=== PATIENT | male | born 1945 | race Caucasian/White ===

== ENCOUNTER 2016-11-08 07:02 | Emergency (ER) | payer BC ==
[~2016-11-08] VITALS: Ht 177.8 cm; Wt 79.2 kg
[~2016-11-08 07:02] MED LIST: ALPHTAB9 PO; ASPI-461 PO; ATOR-54 PO; CALCTAB5 PO; LEVO-18 PO; LISI40TA PO; PSEU30TA20 PO; PSYL55.43 PO; VTMB12UNK PO; ZOLP10TA6 PO; [UNRECOGNIZED DRUG - CODE] PO
[2016-11-08 07:03] VITALS: TEMP 36.5; Ht 177.8 cm; Wt 79.2 kg
[2016-11-08 07:36] LABS: BASO % 0.5 %; BASO ABS # 0.03 K/uL (0-0.2); COMPLETE YES; EOS % 5.1 %; HEMATOCRIT 45.3 % (42-52); IG% 0.2 %; LYMPH ABS # 0.84 K/uL (1.2-3.4); MEAN CELL VOLUME 86.3 fL (80-100); MEAN CORPUSCULAR HEMOGLOBIN 29.9 pg (25-34); MEAN CORPUSCULAR HGB CONC 34.7 g/dl (32-36); MEAN PLATELET VOLUME 9.4 fL (7.4-10.4); MONO % 9.1 %; NEUT % 72.1 %; PLATELET COUNT 183 K/uL (130-400); RED BLOOD COUNT 5.25 M/uL (4.7-6.1); WHITE BLOOD COUNT 6.48 K/uL (4.8-10.8)
[2016-11-08 07:51] LABS: ALT/SGPT 32 U/L (12-78); AST/SGOT 19 U/L (15-37); BLOOD UREA NITROGEN 11 mg/dl (7-18); BUN/CREATININE RATIO 11.1 (10-20); CALCIUM 9.2 mg/dl (8.5-10.1); CARBON DIOXIDE 29 mmol/L (21-32); CHLORIDE 102 mmol/L (98-107); GLUCOSE 98 mg/dl (70-99); POTASSIUM 3.7 mmol/L (3.5-5.1); SODIUM 138 mmol/L (136-145)
--- NOTE | 2016-11-08 07:52 | DIAGNOSTIC IMAGING REPORT ---
CHEST ONE VIEW PORTABLE CLINICAL HISTORY: Hypertension COMPARISON STUDY: 10/15/2013 FINDINGS: The chest has an emphysematous configuration. The right-sided central venous catheter is been removed. There is no failure. There is no lobar consolidation. There are linear atelectatic changes the left lung base. A left suprahilar opacity likely reflects a vascular summation[ IMPRESSION: Emphysema. No acute findings. Electronically signed by: Jacky Diaz M.D. 11/08/2016 7:50 AM
[2016-11-08] MEDS ORDERED: AMLO2.5T2 PO (07:53)
[2016-11-08] MEDS ORDERED: LISI-461 PO (07:53)
[2016-11-08] MEDS ORDERED: CRS/10 PO (07:53)
[2016-11-08 07:56] LABS: ALB/GLOB RATIO 1.3 (0.9-2); ALKALINE PHOSPHATASE 67 U/L (45-117)
--- NOTE | 2016-11-08 08:03 | EMERGENCY ROOM VISIT NOTE ---
History First contact with patient: 07:11 Chief Complaint: HYPERTENSION Stated Complaint: HIGH BLOOD PRESSURE History of Present Illness The patient is a 71 year old male who presents to the Emergency Room with complaints of hypertension. The patient reports that he was recently in [place] and returned 3 days ago. While he was in [place], the patient did not take his blood pressure medication. The patient was seen by his primary care provider's office yesterday and was apparently diagnosed with the flu. The patient reports that he has had redness and discharge of the right eye, swelling of the right side of the tongue, and swelling of the right lymph nodes. His blood pressure was high and his primary care provider's office and he was prescribed Norvasc, which he started last night. The patient has chronic issues with short -term memory loss. The patient reports that he has had a headache which he rates an 8/10 starting approximately 3 hours ago. The patient took his blood pressure at home and it was elevated despite taking his lisinopril this morning. The patient took 2 baby aspirin, retook his blood pressure, and came here because it was still high. He denies any numbness, weakness or confusion outside of his baseline. He denies any chest pain or shortness of breath. The patient does have a history of hypertension but states it is typically well controlled with his medications. Review of Systems A complete 10-point Review of Systems was discussed with the patient, with pertinent positives and negatives listed in the History of Present Illness. All remaining Review of Systems questions can be considered negative unless otherwise specified. Past Medical/Surgical History Medical Problems: (1) Emphysema NEC (2) HTN (hypertension) Surgical Problems: (1) History of prostate biopsy Family History Diabetes mellitus FHx: cancer FHx: heart disease FHx: hypertension FHx: kidney disease Social History Smoking Status: Never Smoker Alcohol Use: occasionally Marital Status: Housing Status: lives with family Occupation Status: retired Current/Historical Medications Scheduled Alpha-Lipoic Acid (Thioctic Ac (Alpha Lipoic Acid), 200 MG PO DAILY Amlodipine Besylate (Norvasc), 2.5 MG PO DAILY Aspirin (Aspirin), 81 MG PO DAILY Calcium (Caltrate), 600 MG PO DAILY Cholecalciferol (Vitamin D3), 2,000 INTER.UNIT PO DAILY Coenzyme Q10 (Ubidecarenone) (Coenzyme Q-10), 100 MG PO DAILY Lisinopril (Zestril), 10 MG PO DAILY Magnesium Oxide (Mg Supplement (Magnesium), 400 MG PO DAILY Multiple Vitamin (Multivitamin), 1 TABLET PO DAILY [place]-3 Fatty Acids (Fish Oil Triple Strength), 1 CAPSULE PO DAILY Psyllium (Metamucil Powder), 1 PACK PO BID Rosuvastatin Calcium (Crestor), 10 MG PO DAILY Sildenafil Citrate (Viagra), 25 MG PO PRN Valacyclovir Hcl (Valtrex), 2,000 MG PO DAILY [Chromium], 1 TABLET PO DAILY Scheduled PRN Ibuprofen Tab (Advil), 200 MG PO UD PRN for Pain Oxycodone/Acetaminophen 5MG/325MG (Percocet 5MG/325MG), 1-2 TABS PO Q4H PRN for Pain Pseudoephedrine (Sudafed), 30 MG PO UD PRN for Trouble breathing Allergies Coded Allergies: Penicillins (Unverified Allergy, Unknown, ANAPHYLAXIS, 11/08/16) as a child, feels that he got dilerious & high fever. Physical Exam Vital Signs Date Time Temp Pulse Resp B/P Pulse Ox O2 Delivery O2 Flow Rate FiO2 11/08/16 12:04 99 18 142/99 100 11/08/16 11:42 94 18 150/102 94 Room Air 11/08/16 10:37 93 19 146/103 11/08/16 10:27 87 20 153/120 93 Room Air 11/08/16 10:15 88 18 183/133 95 Room Air 11/08/16 09:28 86 19 172/118 95 Room Air 11/08/16 08:54 82 18 195/138 94 Room Air 11/08/16 08:18 75 16 181/119 93 Room Air 11/08/16 07:51 83 24 171/131 93 Room Air 11/08/16 07:27 80 192/145 94 Room Air 11/08/16 07:03 36.5 83 18 193/130 94 Room Air Physical Exam VITALS: Vitals are noted on the nurse's note and reviewed by myself. Vital signs stable. GENERAL: This is a 71-year-old male, in no acute distress, nondiaphoretic, well- developed well-nourished. SKIN: The skin was without rashes. HEAD: Normocephalic atraumatic. EARS: External auditory canals clear, tympanic membranes pearly izquierdo without erythema or effusion bilaterally. EYES: Pupils equal round and reactive to light and accommodation. Conjunctivae without injection, sclerae without icterus. Extraocular movements intact. NOSE: Patent, turbinates without inflammation or discharge. No sinus tenderness. MOUTH: Mucous membranes moist. Tonsils are not enlarged. Pharynx without erythema or exudate. Airway patent. The right side of the tongue appears to be slightly swollen and the tongue deviates slightly to the right. NECK: Supple without nuchal rigidity. No lymphadenopathy. HEART: Regular rate and rhythm without murmurs gallops or rubs. LUNGS: Clear to auscultation bilaterally without wheezes, rales or rhonchi. No retractions or accessory muscle use. ABDOMEN: Positive bowel sounds x 4. Soft, nontender, without masses or organomegaly. MUSCULOSKELETAL: Full range of motion in all extremities. Strength 5/5 throughout. NEURO: Patient was alert and oriented to person place and time. Normal sensation to light and sharp touch. No focal neurological deficits. Medical Decision & Procedures ER Provider Diagnostic Interpretation: CHEST ONE VIEW PORTABLE FINDINGS: The chest has an emphysematous configuration. The right-sided central venous catheter is been removed. There is no failure. There is no lobar consolidation. There are linear atelectatic changes the left lung base. A left suprahilar opacity likely reflects a vascular summation[ IMPRESSION: Emphysema. No acute findings. Laboratory Results 11/08/16 07:27 Red Blood Count 5.25, Mean Corpuscular Volume 86.3, Mean Corpuscular Hemoglobin 29.9, Mean Corpuscular Hemoglobin Concent 34.7, Mean Platelet Volume 9.4, Neutrophils (%) (Auto) 72.1, Lymphocytes (%) (Auto) 13.0, Monocytes (%) (Auto) 9.1, Eosinophils (%) (Auto) 5.1, Basophils (%) (Auto) 0.5, Neutrophils # (Auto) 4.68, Lymphocytes # (Auto) 0.84, Monocytes # (Auto) 0.59, Eosinophils # (Auto) 0.33, Basophils # (Auto) 0.03 11/08/16 07:27 Test 11/08/16 07:27 11/08/16 10:15 White Blood Count 6.48 K/uL (4.8-10.8) Red Blood Count 5.25 M/uL (4.7-6.1) Hemoglobin 15.7 g/dL (14.0-18.0) Hematocrit 45.3 % (42-52) Mean Corpuscular Volume 86.3 fL (80-100) Mean Corpuscular Hemoglobin 29.9 pg (25-34) Mean Corpuscular Hemoglobin Concent 34.7 g/dl (32-36) Platelet Count 183 K/uL (130-400) Mean Platelet Volume 9.4 fL (7.4-10.4) Neutrophils (%) (Auto) 72.1 % Lymphocytes (%) (Auto) 13.0 % Monocytes (%) (Auto) 9.1 % Eosinophils (%) (Auto) 5.1 % Basophils (%) (Auto) 0.5 % Neutrophils # (Auto) 4.68 K/uL (1.4-6.5) Lymphocytes # (Auto) 0.84 K/uL (1.2-3.4) Monocytes # (Auto) 0.59 K/uL (0.11-0.59) Eosinophils # (Auto) 0.33 K/uL (0-0.5) Basophils # (Auto) 0.03 K/uL (0-0.2) RDW Standard Deviation 41.7 fL (36.4-46.3) RDW Coefficient of Variation 13.2 % (11.5-14.5) Immature Granulocyte % (Auto) 0.2 % Immature Granulocyte # (Auto) 0.01 K/uL (0.00-0.02) Anion Gap 7.0 mmol/L (3-11) Est Creatinine Clear Calc Drug Dose 67.9 ml/min Estimated GFR () 86.2 Estimated GFR (Non- 74.3 BUN/Creatinine Ratio 11.1 (10-20) Calcium Level 9.2 mg/dl (8.5-10.1) Total Bilirubin 1.6 mg/dl (0.2-1) Aspartate Amino Transf (AST/SGOT) 19 U/L (15-37) Alanine Aminotransferase (ALT/SGPT) 32 U/L (12-78) Alkaline Phosphatase 67 U/L (45-117) Troponin I < 0.015 ng/ml (0-0.045) Total Protein 7.0 gm/dl (6.4-8.2) Albumin 4.0 gm/dl (3.4-5.0) Globulin 3.0 gm/dl (2.5-4.0) Albumin/Globulin Ratio 1.3 (0.9-2) Influenza Type A Antigen Neg for Influ A (NEG) Influenza Type B Antigen Neg for Influ B (NEG) Medications Administered Medications (Trade) Dose Ordered Sig/Delgado Route Start Time Stop Time Status Last Admin Dose Admin Clonidine HCl (Catapres Tab) 0.1 mg NOW ONCE PO 11/08/16 08:15 11/08/16 08:16 DC 11/08/16 08:19 0.1 MG Hydralazine HCl (HydrALAZINE INJ) 10 mg NOW STAT IV. 11/08/16 09:46 11/08/16 09:48 DC 11/08/16 10:18 10 MG Morphine Sulfate (MoRPHine SULFATE INJ) 4 mg NOW STAT IV 11/08/16 09:46 11/08/16 09:48 DC 11/08/16 10:18 4 MG Valacyclovir HCl (Valtrex Tab) 2,000 mg NOW ONCE PO 11/08/16 10:15 11/08/16 10:16 DC 11/08/16 10:36 2,000 MG ECG Indication: other (hypertension) Rate (beats per minute): 78 Rhythm: normal sinus Findings: no acute ischemic change, no ectopy Comparison ECG Date: Rate increased by 20 bpm from prior EKG in 2012 Medical Decision Differential diagnosis includes migraine headache, CVA, intracranial hemorrhage , influenza, viral syndrome, infection, electrolyte abnormalities, among others. The patient was evaluated as above. The patient was placed on a sailmaker. Labs were drawn and IV access was obtained. Imaging studies were performed and read by radiology as above. The patient is a 71-year-old male who presents today complaining of hypertension. The patient also complains of a headache which began early this morning. A CT of the head was performed and read by radiology with no acute findings. EKG showed a normal sinus rhythm without any acute ischemic findings. Labs revealed no leukocytosis, anemia or concerning electrolyte abnormalities. Troponin was not elevated. The patient was initially given 0.1 mg clonidine with no improvement of his blood pressure. The patient was then given 10 mg hydralazine as well as 4 mg morphine IV for his headache and his blood pressure did gradually begin to decrease. The patient will be given pain medication for any continued headache. He will be given Valtrex for a possible cold sore of the right side of his mouth. He was instructed to recheck his blood pressure at home and follow-up with his primary care provider closely for further evaluation of his hypertension. He'll return for any new/concerning symptoms. Based on the patient's presentation, lab results, and imaging studies, I feel the patient is stable for outpatient treatment. The patient's case was reviewed with Dr. Benites, ED attending physician, who agreed with my assessment and treatment plan. Discharge instructions were reviewed with the patient. The patient verbalized understanding of my assessment and treatment plan and was discharged home in good condition. Impression Primary Impression: Hypertension Additional Impression: Headache Departure Information Dispostion Home / Self-Care Condition GOOD Prescriptions Valacyclovir Hcl (VALTREX) 1 Gm Tab 2000 MG PO DAILY for 1 Day, #1 TAB Prov: Kellie Hilton .TRISTAN 11/08/16 Oxycodone/Acetaminophen 5MG/325MG (PERCOCET 5MG/325MG) Tab 1-2 TABS PO Q4H Y for Pain, #15 TAB For Initial Treatment Prov: Kellie Hilton PA-C 11/08/16 Referrals Benji Oh M.D. (PCP) Patient Instructions A Signature Page, My [facility] Additional Instructions You have been prescribed Percocet to be used for pain control. Take 1-2 tablets every 4-6 hours as needed for pain. This is a narcotic medication. You cannot drive or consume alcohol while on this medicine. This medicine should only be used for pain that cannot be controlled with [id number] pain medicines. Take the second dose of Valtrex tonight. Continue the blood pressure medications as prescribed. Follow-up with your primary care provider closely over the next 2 days. Return to the emergency department with chest pain, shortness of breath, worsening headache or any new/concerning symptoms.
--- NOTE | 2016-11-08 08:06 | DIAGNOSTIC IMAGING REPORT ---
CT HEAD WITHOUT CONTRAST (CT) CLINICAL HISTORY: Headaches and hypertension COMPARISON STUDY: 10/12/2013 TECHNIQUE: Axial CT of the brain is performed from the vertex to the skull base. IV contrast was not administered for this examination. CT DOSE: 614.27 mGy.cm FINDINGS: No intra or extra-axial mass lesions are visualized. There is no CT evidence of acute cortical infarction. There is no evidence of midline shift. There is no acute hemorrhage. No calvarial fractures are visualized. There are minimal white matter hypodensities likely on a small vessel basis. 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 There is no evidence of pathologic ventricular dilatation. There is no evidence of acute sinusitis IMPRESSION: No acute intracranial findings Electronically signed by: Jacky Diaz M.D. 11/08/2016 8:04 AM
[2016-11-08] MEDS ORDERED: CLONIDINE HCL 0.1 MG TAB PO ONE (08:15)
[2016-11-08] MEDS ORDERED: HydrALAZINE HCL 20 MG/ML VIAL IV. STA (09:46)
[2016-11-08] MEDS ORDERED: MoRPHine SULFATE 4 MG/ML 1 ML CARP\\VIAL IV STA (09:46)
[2016-11-08] MEDS ORDERED: VALA1TAB2 PO (11:47)
[2016-11-08] MEDS ORDERED: OXYC-57 PO (11:47)
[2016-11-08 12:04] VITALS: BP 142/99; PULSE 99; O2SAT 100
[2016-12-02] MEDS ORDERED: SILD1TAB11 PO (10:05)
[2016-12-02] MEDS ORDERED: MULTTAB58 PO (19:16)
[2016-12-02] MEDS ORDERED: COEN100C2 PO (19:16)
[2016-12-02] MEDS ORDERED: Chromium PO (19:19)
[2016-12-02] MEDS ORDERED: MAGN1CAP2 PO (19:19)
[2016-12-02] MEDS ORDERED: IBUP-103 PO (19:22)
[2016-12-02] MEDS ORDERED: CHOL20007 PO (19:22)
== END 2016-11-08 12:06 | disposition home or self-care (01) ==
LOC: C.EDB 07:03 → C.EDA 12:06
DX: I10 Essential (primary) hypertension (principal); R51 Headache; J43.9 Emphysema, unspecified; Z79.82 Long term (current) use of aspirin; Z79.899 Other long term (current) drug therapy; Z88.0 Allergy status to penicillin

== ENCOUNTER → 2016-11-11 | Outpatient (CLI) | payer BC ==
[~2016-11-11] VITALS: Ht 177.8 cm; Wt 50.1 kg
[~2016-11-11] MED LIST changes: +AMLO2.5T2 PO; -ATOR-54 PO; +CALCTAB7 PO; +CHOL20007 PO; +COEN100C2 PO; +CRS/10 PO; +Chromium PO; +IBUP-103 PO; -LEVO-18 PO; +LISI-461 PO; -LISI40TA PO; +MAGN1CAP2 PO; +MULTTAB58 PO; +NRV/5 PO; +OXYC-57 PO; +PSEU12TA PO; +SILD1TAB11 PO; -VTMB12UNK PO; -ZOLP10TA6 PO
[2016-11-11 15:08] VITALS: BP 145/101; PULSE 78; Ht 177.8 cm; Wt 50.1 kg
[2016-11-11 15:09] VITALS: BP 146/102
== END | disposition home or self-care (01) ==
LOC: C.NEUR 14:19
PROVIDERS: ATTEND Internal Medicine Pulmonary Disease
DX: G47.33 Obstructive sleep apnea (adult) (pediatric) (principal)

== ENCOUNTER 2016-12-02 22:13 | Inpatient (IN) | payer BC, OTHER ==
[~2016-12-02] VITALS: Ht 175.3 cm; Wt 78.2 kg
[~2016-12-02 22:13] MED LIST changes: -CALCTAB7 PO; -GADAVIST IV PRN; -NRV/5 PO; -PSEU12TA PO
[2016-12-02] MEDS ORDERED: NRV/5 PO (22:29)
[2016-12-02] MEDS ORDERED: CALCTAB7 PO (22:45)
[2016-12-02] MEDS ORDERED: SODIUM CHLORIDE 0.9% 1000ML 1,000 ML IV ONE (23:00)
[2016-12-02 23:03] LABS: BASO % 0.9 %; BASO ABS # 0.04 K/uL (0-0.2); COMPLETE YES; EOS % 9.3 %; HEMATOCRIT 41.7 % (42-52); IG% 0.5 %; LYMPH % 20.6 %; LYMPH ABS # 0.91 K/uL (1.2-3.4); MEAN CELL VOLUME 86.5 fL (80-100); MEAN CORPUSCULAR HEMOGLOBIN 30.3 pg (25-34); MEAN PLATELET VOLUME 9.5 fL (7.4-10.4); MONO % 10.2 %; NEUT % 58.5 %; PLATELET COUNT 228 K/uL (130-400); RED BLOOD COUNT 4.82 M/uL (4.7-6.1); WHITE BLOOD COUNT 4.42 K/uL (4.8-10.8)
[2016-12-02] MEDS ORDERED: PSEU12TA PO (23:04)
[2016-12-02 23:11] LABS: INR 0.9 (0.9-1.1); PROTHROMBIN TIME (PATIENT) 10.1 SECONDS (9.0-12.0)
[2016-12-02 23:15] LABS: BUN/CREATININE RATIO 17.1 (10-20); CALCIUM 8.8 mg/dl (8.5-10.1); CREATININE 1.2 mg/dl (0.60-1.40); MAGNESIUM 2.1 mg/dl (1.8-2.4); POTASSIUM 3.8 mmol/L (3.5-5.1)
[2016-12-02 23:26] LABS: ALB/GLOB RATIO 1.3 (0.9-2); THYROID STIMULATING HORMONE 2.53 uIu/ml (0.300-4.500)
[2016-12-02] MEDS ORDERED: HEPARIN SOD 5000 UNIT/0.5 ML CARP ONE (23:36)
[2016-12-02] MEDS ORDERED: HEPARIN 25000 UNIT/500 ML D5W ONE (23:36)
[2016-12-03 00:11] LABS: URINE APPEARANCE TURBID (CLEAR); URINE BILIRUBIN NEG (NEG); URINE COLOR YELLOW; URINE EPITHELIAL CELL AUTO 0-5 /lpf (0-5); URINE NITRITE NEG (NEG); URINE PH 7.5 (4.5-7.5); URINE SPECIFIC GRAVITY 1.009 (1.000-1.030); UROBILINOGEN NEG (NEG); ZZUR CULT IF INDIC CLEAN CATCH NO
[2016-12-03 00:17] LABS: MANUAL MICROSCOPIC REQUIRED? NO; REVIEW REQ? NO
[2016-12-03] MEDS ORDERED: DiphenhydrAMINE HCL 50 MG/ML VIAL IV PRN (00:45)
[2016-12-03] MEDS ORDERED: ACETAMINOPHEN 325 MG TAB PO PRN ×2 (00:45)
[2016-12-03] MEDS ORDERED: PROMETHAZINE HCL INJ 12.5 MG in SODIUM CHLORIDE 0.9% 50ML 50 ML IV PRN (00:45)
[2016-12-03] MEDS ORDERED: HydrALAZINE HCL 20 MG/ML VIAL IV. PRN (00:45)
[2016-12-03] MEDS ORDERED: MAGNESIUM HYDROXIDE SUSP 30 ML UDC PO PRN (00:45)
[2016-12-03] MEDS ORDERED: ZOLPIDEM TARTRATE 5 MG TAB PO PRN ×2 (00:45)
[2016-12-03] MEDS ORDERED: LORAZEPAM 2 MG/ML 1 ML VIAL IV PRN (00:45)
[2016-12-03] MEDS ORDERED: MoRPHine SULFATE 2 MG/ML CARP IV PRN (00:45)
[2016-12-03] MEDS ORDERED: ONDANSETRON INJ 2 MG/ML 2 ML VIAL IV PRN (00:45)
[2016-12-03] MEDS ORDERED: ALUMINUM/MAGNESIUM/SIMETH (MAALOX MAX) 30 ML UDC PO PRN (00:45)
[2016-12-03] MEDS ORDERED: BISACODYL 10 MG SUPP PR PRN (00:45)
[2016-12-03] MEDS ORDERED: OPTIRAY 320 IV PRN (01:00)
[2016-12-03] MEDS ORDERED: HEPARIN IV LOW DOSE NO BOLUS SCH (01:07)
[2016-12-03 01:22] LABS: FERRITIN 105.6 ng/ml (8.0-388.0)
[2016-12-03 02:14] VITALS: BP 172/105; PULSE 70; TEMP 36.3; O2SAT 94; Ht 175.3 cm; Wt 78.2 kg
[2016-12-03] MEDS ORDERED: NSS + 20MEQ KCL 1000ML 1,000 ML IV SCH (02:15)
[2016-12-03 04:01] LABS: ISTAT CREATININE 1.1 mg/dl (0.6-1.3); ISTAT HEMOGLOBIN 13.9 g/dl (14.0-18.0); ISTAT IONIZED CALCIUM 1.19 mmol/l (1.12-1.32)
--- NOTE | 2016-12-03 05:58 | History and Physical ---
History & Physical Date & Time of Service: Dec 03, 2016 at 05:42 Chief Complaint: Enlargement Of Tongue, Internal Carotid Artery Dis Primary Care Physician: Benji Oh M.D. 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 He had presented to that office with head and neck symptoms including right eye weeping, and right-sided headache. He did not have any associated left sided symptoms of arm or leg numbness, tingling or weakness. He and his had undergone an over 2 week long trip to [place], and it was determined when they returned, that he had not been taking his blood pressure medications as directed, and his blood pressure was significantly elevated. The patient does have a history of memory loss that was attributed to an episode of sepsis a few years ago. He has agree that he has not had any recent change in his memory dysfunction. Past Medical/Surgical History Medical Problems: (1) Emphysema NEC Status: Chronic (2) HTN (hypertension) Status: Chronic Surgical Problems: (1) History of prostate biopsy Status: Resolved Family History Diabetes mellitus FHx: cancer FHx: heart disease FHx: hypertension FHx: kidney disease Social History Smoking Status: Never Smoker Smokeless Tobacco Use: No Alcohol Use: none Drug Use: none Marital Status: Housing status: lives with family Occupational Status: retired Immunizations History of Influenza Vaccine: Yes History of Tetanus Vaccine?: Unknown History of Pneumococcal: Yes History of Hepatitis B Vaccine: Unknown Multi-Drug Resistant Organisms History of MDRO: No Allergies Coded Allergies: Penicillins (Unverified Allergy, Unknown, ANAPHYLAXIS, 11/08/16) as a child, feels that he got dilerious & high fever. Home Medications Scheduled Alpha-Lipoic Acid (Thioctic Ac (Alpha Lipoic Acid), 200 MG PO DAILY Amlodipine Besylate (Amlodipine Besylate), 5 MG PO BID Aspirin (Aspirin), 81 MG PO DAILY Cholecalciferol (Vitamin D3), 2,000 INTER.UNIT PO BID Coenzyme Q10 (Ubidecarenone) (Coenzyme Q-10), 100 MG PO DAILY Magnesium Oxide (Mg Supplement (Magnesium), 400 MG PO QPM Multiple Vitamin (Multivitamin), 1 TABLET PO DAILY Pseudoephedrine Hcl (Decongestant 12HOUR Maxim), 1 TAB PO Q12 Psyllium (Metamucil Powder), 1 PACK PO BID Sildenafil Citrate (Viagra), 25 MG PO PRN [Chromium], 1 TABLET PO DAILY Scheduled PRN Ibuprofen Tab (Advil), 200 MG PO UD PRN for Pain Review of Systems The patient denies chest pain, palpitations, shortness of breath, cough, lower extremity swelling, vision change, fevers, chills, sweats, weight change, fatigue, nausea, vomiting, abdominal pain, pelvic pain, blood in urine or stool , dysuria, urinary frequency or urgency, rash, abnormal bruising or bleeding, imbalance, focal or generalized weakness, numbness or tingling in arms or legs, arthralgias or myalgias, back or neck pain, night sweats, or allergy symptoms. The review of systems is otherwise negative other than for that already noted above, and at least 10 systems have been reviewed. Physical Exam Vital Signs Date Time Temp Pulse Resp B/P Pulse Ox O2 Delivery O2 Flow Rate FiO2 12/03/16 04:23 Room Air 12/03/16 02:14 36.3 70 18 172/105 94 Room Air 12/03/16 01:38 36.6 74 22 138/102 93 12/03/16 01:35 74 22 138/102 93 Room Air 12/03/16 00:53 74 22 145/105 93 12/03/16 00:48 76 19 95 12/03/16 00:43 70 22 94 12/03/16 00:38 84 21 93 12/03/16 00:33 69 21 93 12/03/16 00:28 69 21 155/106 93 12/03/16 00:23 81 35 96 12/03/16 00:18 66 20 94 12/03/16 00:13 67 20 94 12/03/16 00:08 69 22 94 12/03/16 00:03 66 20 94 12/02/16 23:58 68 21 146/105 94 12/02/16 23:53 65 21 93 12/02/16 23:48 68 25 93 12/02/16 23:43 70 21 94 12/02/16 23:38 65 20 94 12/02/16 23:33 66 23 93 12/02/16 23:28 66 21 139/99 92 12/02/16 23:23 68 25 95 12/02/16 23:18 75 15 91 12/02/16 23:13 68 26 92 12/02/16 23:11 70 20 139/95 91 12/02/16 23:08 70 17 91 12/02/16 23:03 71 26 91 12/02/16 22:58 71 22 144/102 92 12/02/16 22:57 91 Room Air 12/02/16 22:53 72 21 92 12/02/16 22:48 72 26 91 12/02/16 22:44 74 12/02/16 22:43 74 25 91 12/02/16 22:41 147/100 12/02/16 22:17 36.6 83 20 155/108 94 Room Air The patient is awake, well-developed and adequately nourished, alert and oriented 3, normocephalic and atraumatic, lying in bed and in no acute distress. HEENT--PERRL, EOMI, mucous membranes moist, and oropharynx normal. Neck--supple, no JVD or bruits, thyroid normal, trachea midline, no adenopathy. Heart--normal S1 and S2, no extra beats, no murmurs, rubs or gallops. Lungs--clear bilaterally with good air movement, no respiratory distress, no accessory muscle use. Abdomen--normal bowel sounds and soft, nontender and nondistended, no hernias or masses, no organomegaly. Extremities--no cyanosis, clubbing or edema. There are good distal pulses b/l. Dermatologic--normal skin turgor, normal color, warm and dry, no abnormal lymph nodes, no rash. Neurologic--cranial nerves II through XII grossly intact, motor and sensory examination normal. Rheumatologic--normal range of motion, nontender, muscles and joints. Psychiatric--normal affect. Diagnostics Laboratory Results Results Past 24 Hours Test 12/02/16 22:40 12/02/16 22:45 12/02/16 23:05 12/02/16 23:50 Range/Units White Blood Count 4.42 4.8-10.8 K/uL Red Blood Count 4.82 4.7-6.1 M/uL Hemoglobin 14.6 14.0-18.0 g/dL Hematocrit 41.7 42-52 % Mean Corpuscular Volume 86.5 80-100 fL Mean Corpuscular Hemoglobin 30.3 25-34 pg Mean Corpuscular Hemoglobin Concent 35.0 32-36 g/dl Platelet Count 228 130-400 K/uL Mean Platelet Volume 9.5 7.4-10.4 fL Neutrophils (%) (Auto) 58.5 % Lymphocytes (%) (Auto) 20.6 % Monocytes (%) (Auto) 10.2 % Eosinophils (%) (Auto) 9.3 % Basophils (%) (Auto) 0.9 % Neutrophils # (Auto) 2.59 1.4-6.5 K/uL Lymphocytes # (Auto) 0.91 1.2-3.4 K/uL Monocytes # (Auto) 0.45 0.11-0.59 K/uL Eosinophils # (Auto) 0.41 0-0.5 K/uL Basophils # (Auto) 0.04 0-0.2 K/uL RDW Standard Deviation 42.6 36.4-46.3 fL RDW Coefficient of Variation 13.4 11.5-14.5 % Immature Granulocyte % (Auto) 0.5 % Immature Granulocyte # (Auto) 0.02 0.00-0.02 K/uL Erythrocyte Sedimentation Rate 2 0-14 mm/hr Prothrombin Time 10.1 9.0-12.0 SECONDS Prothromb Time International Ratio 0.9 0.9-1.1 Activated Partial Thromboplast Time 26.4 21.0-31.0 SECONDS Partial Thromboplastin Ratio 1.0 Sodium Level 143 136-145 mmol/L Potassium Level 3.8 3.5-5.1 mmol/L Chloride Level 106 98-107 mmol/L Carbon Dioxide Level 27 21-32 mmol/L Anion Gap 10.0 18.0 16-25 mmol/L Blood Urea Nitrogen 21 7-18 mg/dl Creatinine 1.20 0.60-1.40 mg/dl Est Creatinine Clear Calc Drug Dose 54.9 ml/min Estimated GFR () 69.1 Estimated GFR (Non- 59.6 BUN/Creatinine Ratio 17.1 10-20 Random Glucose 124 70-99 mg/dl Calcium Level 8.8 8.5-10.1 mg/dl Magnesium Level 2.1 1.8-2.4 mg/dl Iron Level 54 35-175 mcg/dl Total Iron Binding Capacity 277 250-450 mcg/dl Ferritin 105.6 8.0-388.0 ng/ml Total Bilirubin 0.9 0.2-1 mg/dl Aspartate Amino Transf (AST/SGOT) 15 15-37 U/L Alanine Aminotransferase (ALT/SGPT) 24 12-78 U/L Alkaline Phosphatase 70 45-117 U/L Total Protein 6.3 6.4-8.2 gm/dl Albumin 3.5 3.4-5.0 gm/dl Globulin 2.8 2.5-4.0 gm/dl Albumin/Globulin Ratio 1.3 0.9-2 Thyroid Stimulating Hormone (TSH) 2.530 0.300-4.500 uIu/ml Free Thyroxine 1.10 0.80-1.60 ng/dl Free Triiodothyronine 2.71 2.30-4.20 pg/ml Bedside Hemoglobin 13.9 14.0-18.0 g/dl Bedside Hematocrit 41 42-52 % Bedside Sodium 141 135-144 mEq/L Bedside Potassium 3.7 3.3-5.0 mEq/L Bedside Chloride 101 101-112 mEq/L Bedside Total CO2 27 24-31 mEq/l Bedside Blood Urea Nitrogen 21 7-18 mg/dl Bedside Creatinine 1.1 0.6-1.3 mg/dl Bedside Glucose (other) 131 70-99 mg/dl Bedside Ionized Calcium (Yolis) 1.19 1.12-1.32 mmol/l Bedside Troponin I 0.000 0-0.045 ng/ml Urine Color YELLOW Urine Appearance TURBID CLEAR Urine pH 7.5 4.5-7.5 Urine Specific Central 1.009 1.000-1.030 Urine Protein NEG NEG Urine Glucose (UA) NEG NEG Urine Ketones NEG NEG Urine Occult Blood NEG NEG Urine Nitrite NEG NEG Urine Bilirubin NEG NEG Urine Urobilinogen NEG NEG Urine Leukocyte Esterase NEG NEG Urine WBC (Auto) 1-5 0-5 /hpf Urine RBC (Auto) 0-4 0-4 /hpf Urine Hyaline Casts (Auto) 0 0-5 /lpf Urine Epithelial Cells (Auto) 0-5 0-5 /lpf Urine Bacteria (Auto) NEG NEG Test 12/03/16 04:44 Range/Units Impression Assessment and Plan The patient's initial imaging study was MRI the brain with and without contrast ordered by the ENT, and then was referred to the hospital for further assessment. I ordered a CT angiography of the head and neck, with the following report: 50% narrowing of the distal right cervical internal carotid artery beginning at the skull base and extending to the mid petrous segment suspicious for a dissection. There is no dissection flap directly visualized. 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 The right internal carotid artery remains patent with flow visualized to the intracranial segment. The patient is being admitted to the telemetry unit. He will be placed on heparin drip per protocol. Dr. Rondon was consulted by emergency department physician, and will see the patient this admission. We'll continue amlodipine 5 mg by mouth daily, aspirin 81 mg by mouth daily, and add hydralazine 10 mg IV every 4 hours when necessary systolic blood pressure greater than 150. Memory loss--noted by patient and to have occurred during previous episode of sepsis, with no overt change associated with this process today. 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 We'll in the interim check a vitamin B12, folic acid, iron, TIBC, ferritin, sedimentation rate, ARTEMIO, ANCA. Level of Care Telemetry Advanced Directives Existing Advance Directive: No Existing Living Will: Yes Existing Power of Beam House Inspector: No Resuscitation Status FULL RESUSCITATION VTE Prophylaxis VTE Risk Assessment Done? Y/N: Yes Risk Level: Moderate Given or contraindicated: Unfractionated heparin SQ
[2016-12-03 06:33] LABS: PARTIAL THROMBOPLASTIN RATIO 3.2
--- NOTE | 2016-12-03 07:19 | DIAGNOSTIC IMAGING REPORT ---
CT ANGIOGRAPHY HEAD COMBO CT DOSE: 1072.21 mGy.cm CLINICAL HISTORY: Abnormal MRI scan. Possible carotid dissection. TECHNIQUE: Unenhanced images were obtained through the head. The patient was then scanned in a dynamic helical fashion during intravenous administration of 92 cc of Optiray 320. MIP imaging was performed. COMPARISON STUDY: MRI the brain dated 12/02/2016, head CT dated 11/08/2016 FINDINGS: On the noncontrast images, there is no evidence of acute hemorrhage. No intra or extra-axial mass lesions are visualized. There is no CT evidence of acute cortical infarction. There is no midline shift. There is no acute hemorrhage. There is no hydrocephalus. 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 The dural venous sinuses appear patent. There is no evidence of major intracranial branch occlusion. There is no evidence of intracranial aneurysm. 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 Distal to this, the internal carotid artery is narrowed by approximately 50%. Although no intimal flap is visualized, given the MRI findings, this may represent a focal dissection of the petrous segment. IMPRESSION: 1. Old left cerebellar infarct 2. No evidence of acute hemorrhage 3. No evidence of dural venous sinus thrombosis 4. 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 Immediately distal to this, there is narrowing of the right petrous internal carotid. Given the MRI findings of increased T1 signal at this level, this may represent a focal dissection. No intimal flap is directly visualized. Electronically signed by: Jacky Diaz M.D. 12/03/2016 7:17 AM Dictated Date/Time: 12/03/2016 7:07 AM
[2016-12-03 07:21] VITALS: BP 126/78; PULSE 74; TEMP 36.4; O2SAT 95
--- NOTE | 2016-12-03 07:25 | DIAGNOSTIC IMAGING REPORT ---
CT NECK ANGIO WITH CONTRAST CLINICAL HISTORY: Abnormal right scan. Possible carotid dissection. Hypoglossal nerve palsy. COMPARISON STUDY: MRI the soft tissue neck dated 12/02/2016 TECHNIQUE: CT angiography was performed from the aortic arch to the skull base. MIP imaging was performed. The patient was scanned in a dynamic helical fashion during intravenous administration of 92 cc of Optiray 320. CT DOSE: Technique: CT angiogram of the carotid and vertebral arteries was obtained using intravenous contrast and 3-D reconstruction. NASCET criteria was utilized. Findings: There is ectasia of the a sitting thoracic aorta which measures 4 cm. The great vessel origins are unremarkable appearance. There is no evidence of right internal carotid artery stenosis at the bifurcation. There is a 1 cm aneurysm of the high right internal carotid artery to C2 level. Medially distal to this, there is mild narrowing of the right internal carotid artery as it enters the skull base and petrous portion. Given the prior MRI findings, this may represent a focal dissection. No intimal flap is visualized. The left carotid revealed no evidence of hemodynamic significant stenosis. There is no evidence of aneurysm. There is no evidence of dissection. There is no evidence of hemodynamically significant vertebral stenosis. There is no evidence of vertebral dissection. There is asymmetry of the tongue base, consistent with the patient's known hypoglossal nerve palsy IMPRESSION: 1. No evidence of vertebral artery aneurysm or occlusion 2. No evidence of left internal carotid artery stenosis 3. 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 There is narrowing of the right internal carotid artery beginning at the skull base and extending into the petrous segment. Given the prior MRI findings, this may indicate a focal dissection although no intimal flap is directly visualized. 4. 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 12/03/2016 7:24 AM Dictated Date/Time: 12/03/2016 7:18 AM
[2016-12-03] MEDS ORDERED: HEPARIN 25,000 UNIT/500ML D5W 500 ML IV PRN (07:45)
--- NOTE | 2016-12-03 07:54 | EMERGENCY ROOM VISIT NOTE ---
ED Visit Note First contact with patient: 22:38 I have personally evaluated and examined this patient. I agree with assessment and plan of Moreno Medina PA-C. 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 He is stable though does have neuro deficits to hypoglossal nerve on right. No bleeding history nor acute contraindications to heparin thus after prolonged discussion of pros/cons will start anti-coagulation.
[2016-12-03 08:01] VITALS: O2SAT 95
[2016-12-03] MEDS ORDERED: POLYETHYLENE (MIRALAX) 17 GM PACK PO SCH (10:00)
[2016-12-03 11:22] VITALS: BP 146/96; PULSE 82; TEMP 36.6; O2SAT 94
[2016-12-03 12:18] VITALS: O2SAT 95
--- NOTE | 2016-12-03 14:02 | DISCHARGE SUMMARY ---
DATE OF DISCHARGE AND TRANSFER: 12/03/2016. MEDICATIONS: The patient was transferred to [facility] on the following medicines: heparin drip, Tylenol 650 mg p.o. q. 4 hours p.r.n. pain, bisacodyl suppositories 10 mg p.o. daily p.r.n. constipation, hydralazine 10 mg IV q. 4 hours systolic blood pressure above 150, lorazepam IV 0.5 q. 4 hours p.r.n. anxiety, morphine sulfate 2 mg IV q. 2 hours p.r.n. pain, Zofran 4 mg IV q. 6 hours p.r.n. nausea and MiraLax 17 grams p.o. daily. At home the patient was taking jarred lipoic acid 200 mg p.o. daily, amlodipine 5 mg p.o. daily, aspirin 81 mg p.o. daily, cholecalciferol 2000 international units p.o. b.i.d., Coenzyme Q10 10 mg p.o. daily, ibuprofen 200 mg p.o. p.r.n. pain, magnesium oxide 400 mg p.o. daily, multivitamins 1 tablet p.o. daily, pseudoephedrine 1 tablet p.o. q. 12, Metamucil 1 packet p.o. b.i.d., sildenafil 25 mg p.o. p.r.n., chromium 1 tablet p.o. daily. HISTORY OF PRESENT ILLNESS AND BRIEF HOSPITAL COURSE: Mr. Sarmiento is a 71-year-old male who was admitted on 12/03/2016 because ENT specialist ordered MRI of the brain with and without contrast suggestive of distal cervical RCA to Saul portion of RCA dissection. He was presented to ENT office with head and neck symptoms including right eye weeping, right-sided headache. He did not have any associated left sided symptoms of arm and leg numbness, tingling or weakness. He and his had undergone 2 week long trip to [place] and was determined when they returned that he had not been taking his blood pressure medicines as directed and also was on 2 different statins due to mistake on his home medication list. He was checking his blood pressure and was significantly elevated. The patient has a history of memory loss that was attributed to an episode of sepsis few years ago. His agreed that he did not have any recent change in his memory. When he was admitted he had CT angiography of the head and neck with report of 50% narrowing of the distal right cervical internal carotid artery beginning at the skull base and extending to the mid petrous segments suspicious for a dissection. 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 The right internal carotid artery remains patent with flow visualized to the intracranial segment. The patient has been admitted to the telemetry unit and he was placed on heparin drip as per protocol. Dr. Rondon was consulted and was supposed to see patient during this admission. We continued amlodipine 5 mg daily, aspirin 81 mg daily, and hydralazine 10 mg IV every 4 hours as needed for systolic blood pressure above 150. 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 A symmetric protrusion on the right posterior lung base consistent with the patient's history of hypoglossal nerve palsy. His second problem was that he had a swollen tongue. There was concern over hypoglossal nerve injury with symmetric posterior protrusion of the right tongue base and also possible reaction to lisinopril that he was taking intermittently. The patient also was on 2 different statins that potentially could cause that however he had no Myalgias and his CPK and LFTs were normal as well as no cardiac enzymes were elevated. He had TSH and free T4 checked which were normal as well as vitamin B12 and folate levels were normal. His creatinine was 1.1. Sodium 141, potassium 3.7, chloride 101, total CO2 27, glucose 131, ionized calcium 1.1. Cardiac enzymes were negative. His CBC was 4.4, hemoglobin of 13.9 and hematocrit of 41 with platelet count of 228. ESR of 2. An INR on admission 0.9, PTT 26 and after heparin was initiated PTT was 82.5. Urinalysis was completely normal. Clerical Support ordered ARTEMIO, ANCA and antiprotein 3 antimyeloperoxidase which were checked and were pending on transfer. Another problem the patient had a memory loss that was noted by the patient and his to have occurred during previous episodes of sepsis with no overt changes associated with this process for this admission. 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 I talked to the family and family decided to transfer patient to [facility] for higher level of care. I personally talked to Dr. Marycruz Schmidt (neurosurgeon), who accepted the patient and the patient has been transferred to [facility] via ambulance. Time spent doing discharge and transfer 50 minutes. REBECCA
[2016-12-03 14:38] LABS: PARTIAL THROMBOPLASTIN RATIO 1.7
--- NOTE | 2016-12-06 18:57 | EMERGENCY ROOM VISIT NOTE ---
History First contact with patient: 22:38 Chief Complaint: OTHER COMPLAINT Stated Complaint: ENLARGEMENT OF TONGUE, INTERNAL CAROTID ARTERY DIS History of Present Illness The patient is a 71 year old male who presents to the Emergency Room with complaints of an internal carotid artery dissection found on outpatient MRI about one hour ago. The patient has a history of long-standing hypertension. At the end of October, roughly 1 month ago, he went to [place] with his . The patient mixed up 2 of his pill bottles, and did not take his blood pressure medication with him for the trip. He was in [place] for a few weeks, and then flew home. The patient states that upon returning home he began having vague right sided tongue pain/swelling. He also began having pain along the right side of his face and above his right eye. The patient has not had difficulty or weakness in his extremities. He has had a recent CT scan this month which did not show a stroke. Ultimately the patient has followed with his primary care physician for this tongue issue, and today he had outpatient MRI performed by ENT. The MRI was performed at this facility, and does show an internal carotid artery dissection. The patient currently does not have significant pain or complaints. He was contacted by ENT to come to the ER for further management. Review of Systems More than 10 systems were reviewed and otherwise negative with the exception of history of present illness. Past Medical/Surgical History Medical Problems: (1) Emphysema NEC (2) Enlargement of tongue (3) HTN (hypertension) (4) Internal carotid artery dissection Surgical Problems: (1) History of prostate biopsy Family History Diabetes mellitus FHx: cancer FHx: heart disease FHx: hypertension FHx: kidney disease Social History Smoking Status: Never Smoker Smokeless Tobacco Use: No Alcohol Use: occasionally Drug Use: none Marital Status: Housing Status: lives with family Occupation Status: retired Current/Historical Medications Scheduled Alpha-Lipoic Acid (Thioctic Ac (Alpha Lipoic Acid), 200 MG PO DAILY Amlodipine Besylate (Amlodipine Besylate), 5 MG PO BID Aspirin (Aspirin), 81 MG PO DAILY Cholecalciferol (Vitamin D3), 2,000 INTER.UNIT PO BID Coenzyme Q10 (Ubidecarenone) (Coenzyme Q-10), 100 MG PO DAILY Magnesium Oxide (Mg Supplement (Magnesium), 400 MG PO QPM Multiple Vitamin (Multivitamin), 1 TABLET PO DAILY Pseudoephedrine Hcl (Decongestant 12HOUR Maxim), 1 TAB PO Q12 Psyllium (Metamucil Powder), 1 PACK PO BID Sildenafil Citrate (Viagra), 25 MG PO PRN [Chromium], 1 TABLET PO DAILY Scheduled PRN Ibuprofen Tab (Advil), 200 MG PO UD PRN for Pain Allergies Coded Allergies: Penicillins (Unverified Allergy, Unknown, ANAPHYLAXIS, 11/08/16) as a child, feels that he got dilerious & high fever. Physical Exam Vital Signs Date Time Temp Pulse Resp B/P Pulse Ox O2 Delivery O2 Flow Rate FiO2 12/03/16 00:48 76 19 95 12/03/16 00:43 70 22 94 12/03/16 00:38 84 21 93 12/03/16 00:33 69 21 93 12/03/16 00:28 69 21 155/106 93 12/03/16 00:23 81 35 96 12/03/16 00:18 66 20 94 12/03/16 00:13 67 20 94 12/03/16 00:08 69 22 94 12/03/16 00:03 66 20 94 12/02/16 23:58 68 21 146/105 94 12/02/16 23:53 65 21 93 12/02/16 23:48 68 25 93 12/02/16 23:43 70 21 94 12/02/16 23:38 65 20 94 12/02/16 23:33 66 23 93 12/02/16 23:28 66 21 139/99 92 12/02/16 23:23 68 25 95 12/02/16 23:18 75 15 91 12/02/16 23:13 68 26 92 12/02/16 23:11 70 20 139/95 91 12/02/16 23:08 70 17 91 12/02/16 23:03 71 26 91 12/02/16 22:58 71 22 144/102 92 12/02/16 22:57 91 Room Air 12/02/16 22:53 72 21 92 12/02/16 22:48 72 26 91 12/02/16 22:44 74 12/02/16 22:43 74 25 91 12/02/16 22:41 147/100 12/02/16 22:17 36.6 83 20 155/108 94 Room Air Pain Rating (0-10): 0 Physical Exam VITALS: Vitals are noted on the nurse's note and reviewed by myself. Vital signs stable. GENERAL: Well-developed, well-nourished, white male, who is in no acute distress and resting comfortably. Patient is cooperative with the examination. HEAD: Normocephalic atraumatic. EARS: External ear normal. External auditory canals clear, tympanic membranes pearly izquierdo without erythema or effusion bilaterally. EYES: Pupils equal round and reactive to light and accommodation. Conjunctivae without injection, sclerae without icterus. Extraocular movements intact. NOSE: Patent, turbinates without inflammation or discharge. MOUTH: Mucous membranes moist. Tonsils are not enlarged. Pharynx without erythema, blood, or exudate. Uvula midline. Airway patent. NECK: Supple without nuchal rigidity. No lymphadenopathy. No thyromegaly. Cervical spine is nontender. HEART: Regular rate and rhythm without murmurs gallops or rubs. LUNGS: Clear to auscultation bilaterally without wheezes, rales or rhonchi. No retractions or accessory muscle use. MUSCULOSKELETAL: No muscle atrophy, erythema, or edema noted. Full range of motion without joint tenderness in all extremities. NEURO: Patient was alert and oriented to person place and time. CN II through XII grossly intact. No focal neurological deficits Medical Decision & Procedures Laboratory Results 12/02/16 22:40 Red Blood Count 4.82, Mean Corpuscular Volume 86.5, Mean Corpuscular Hemoglobin 30.3, Mean Corpuscular Hemoglobin Concent 35.0, Mean Platelet Volume 9.5, Neutrophils (%) (Auto) 58.5, Lymphocytes (%) (Auto) 20.6, Monocytes (%) (Auto) 10.2, Eosinophils (%) (Auto) 9.3, Basophils (%) (Auto) 0.9, Neutrophils # (Auto ) 2.59, Lymphocytes # (Auto) 0.91, Monocytes # (Auto) 0.45, Eosinophils # (Auto ) 0.41, Basophils # (Auto) 0.04 12/02/16 22:40 Test 12/02/16 22:40 12/02/16 22:45 12/02/16 23:05 12/02/16 23:50 White Blood Count 4.42 K/uL (4.8-10.8) Red Blood Count 4.82 M/uL (4.7-6.1) Hemoglobin 14.6 g/dL (14.0-18.0) Hematocrit 41.7 % (42-52) Mean Corpuscular Volume 86.5 fL (80-100) Mean Corpuscular Hemoglobin 30.3 pg (25-34) Mean Corpuscular Hemoglobin Concent 35.0 g/dl (32-36) Platelet Count 228 K/uL (130-400) Mean Platelet Volume 9.5 fL (7.4-10.4) Neutrophils (%) (Auto) 58.5 % Lymphocytes (%) (Auto) 20.6 % Monocytes (%) (Auto) 10.2 % Eosinophils (%) (Auto) 9.3 % Basophils (%) (Auto) 0.9 % Neutrophils # (Auto) 2.59 K/uL (1.4-6.5) Lymphocytes # (Auto) 0.91 K/uL (1.2-3.4) Monocytes # (Auto) 0.45 K/uL (0.11-0.59) Eosinophils # (Auto) 0.41 K/uL (0-0.5) Basophils # (Auto) 0.04 K/uL (0-0.2) RDW Standard Deviation 42.6 fL (36.4-46.3) RDW Coefficient of Variation 13.4 % (11.5-14.5) Immature Granulocyte % (Auto) 0.5 % Immature Granulocyte # (Auto) 0.02 K/uL (0.00-0.02) Erythrocyte Sedimentation Rate 2 mm/hr (0-14) Prothrombin Time 10.1 SECONDS (9.0-12.0) Prothromb Time International Ratio 0.9 (0.9-1.1) Est Creatinine Clear Calc Drug Dose 54.9 ml/min Estimated GFR () 69.1 Estimated GFR (Non- 59.6 BUN/Creatinine Ratio 17.1 (10-20) Calcium Level 8.8 mg/dl (8.5-10.1) Magnesium Level 2.1 mg/dl (1.8-2.4) Iron Level 54 mcg/dl (35-175) Total Iron Binding Capacity 277 mcg/dl (250-450) Ferritin 105.6 ng/ml (8.0-388.0) Total Bilirubin 0.9 mg/dl (0.2-1) Aspartate Amino Transf (AST/SGOT) 15 U/L (15-37) Alanine Aminotransferase (ALT/SGPT) 24 U/L (12-78) Alkaline Phosphatase 70 U/L (45-117) Total Protein 6.3 gm/dl (6.4-8.2) Albumin 3.5 gm/dl (3.4-5.0) Globulin 2.8 gm/dl (2.5-4.0) Albumin/Globulin Ratio 1.3 (0.9-2) Thyroid Stimulating Hormone (TSH) 2.530 uIu/ml (0.300-4.500) Free Thyroxine 1.10 ng/dl (0.80-1.60) Free Triiodothyronine 2.71 pg/ml (2.30-4.20) Bedside Hemoglobin 13.9 g/dl (14.0-18.0) Bedside Hematocrit 41 % (42-52) Bedside Sodium 141 mEq/L (135-144) Bedside Potassium 3.7 mEq/L (3.3-5.0) Bedside Chloride 101 mEq/L (101-112) Bedside Total CO2 27 mEq/l (24-31) Anion Gap 18.0 mmol/L (16-25) Bedside Blood Urea Nitrogen 21 mg/dl (7-18) Bedside Creatinine 1.1 mg/dl (0.6-1.3) Bedside Glucose (other) 131 mg/dl (70-99) Bedside Ionized Calcium (Yolis) 1.19 mmol/l (1.12-1.32) Bedside Troponin I 0.000 ng/ml (0-0.045) Urine Color YELLOW Urine Appearance TURBID (CLEAR) Urine pH 7.5 (4.5-7.5) Urine Specific [place] 1.009 (1.000-1.030) Urine Protein NEG (NEG) Urine Glucose (UA) NEG (NEG) Urine Ketones NEG (NEG) Urine Occult Blood NEG (NEG) Urine Nitrite NEG (NEG) Urine Bilirubin NEG (NEG) Urine Urobilinogen NEG (NEG) Urine Leukocyte Esterase NEG (NEG) Urine WBC (Auto) 1-5 /hpf (0-5) Urine RBC (Auto) 0-4 /hpf (0-4) Urine Hyaline Casts (Auto) 0 /lpf (0-5) Urine Epithelial Cells (Auto) 0-5 /lpf (0-5) Urine Bacteria (Auto) NEG (NEG) Medications Administered Medications (Trade) Dose Ordered Sig/Delgado Route Start Time Stop Time Status Last Admin Dose Admin Sodium Chloride (Nss 1000ml) 1,000 ml @ 200 mls/hr Q5H ONCE IV 12/02/16 23:00 12/03/16 02:14 DC 12/02/16 23:01 200 MLS/HR Heparin Sodium/ Dextrose (Heparin 25,000 Unit/500ml D5W) 25,000 unit STK-MED ONCE .ROUTE 12/02/16 23:36 12/02/16 23:37 DC 12/02/16 23:46 25,000 UNIT Heparin Sodium (Porcine) (Heparin Sq 5000 Unit/0.5ml) 5,000 unit STK-MED ONCE .ROUTE 12/02/16 23:36 12/02/16 23:37 DC 12/02/16 23:46 5,000 UNIT Acetaminophen (Tylenol Tab) 650 mg Q4H PRN PO 12/03/16 00:45 12/03/16 15:47 DC 12/03/16 14:36 650 MG Hydralazine HCl (HydrALAZINE INJ) 10 mg Q4H PRN IV. 12/03/16 00:45 12/03/16 15:47 DC 12/03/16 02:34 10 MG ED Course Physical exam and history were performed. Nursing notes and EMR were reviewed. Patient appears to have an internal carotid artery dissection found on outpatient MRI. On examination the patient appears fairly well, and is without evidence of stroke. IV access was established and labs were obtained. The patient was gently hydrated with normal saline. The case was discussed with my attending physician, Dr. Mercado, who also independently evaluated the patient. The patient's blood work is as above and was reviewed. He does not have a significantly elevated white blood cell count, anemia, bandemia, or gross electrolyte imbalance. His remaining labs are fairly nondiagnostic. I discussed the case with the on-call vascular surgeon, and reviewed the MRI findings. The case does not appear to warrant an acute surgical emergency, as the patient likely has had the dissection for several weeks. As there is no gross contraindication, the patient will be started on heparin here in the department. This was discussed with both myself and the patient, as well as with Dr. Mercado and the patient. I also discussed the case with the on-call buddhist monk, Dr. Rahman, who felt the patient would be best served on the telemetry unit. This was discussed with Dr. Lamas, hospitalist, who agreed to evaluate the patient for further care and management. Please see the hospitalist dictation for further patient course, plan, and disposition. The chart was completed utilizing [employer] Speech Voice Recognition Software. Grammatical errors, random word insertions, pronoun errors, and incomplete sentences are an occasional consequence of this system due to software limitations, ambient noise, and hardware issues. Any formal questions or concerns about the content, text, or information contained within the body of this dictation should be directly addressed to the provider for clarification. . Medical Decision Differential diagnosis: Etiologies such as metabolic, infection, hypoglycemia, electrolyte abnormalities , cardiac sources, intracerebral event, toxicologic, neurologic, as well as others were entertained. Impression Primary Impression: Internal carotid artery dissection Departure Information Dispostion Still a Patient Condition FAIR Referrals Benji Oh M.D. (PCP) Forms WORK / SCHOOL INSTRUCTIONS, HOME CARE DOCUMENTATION FORM, IMPORTANT VISIT INFORMATION Patient Instructions My [facility]
[2016-12-09 14:27] LABS: MYELOPEROXIDASE AB <1.0 AI (<1.0)
--- NOTE | 2016-12-23 07:55 | Medical Consult ---
Consultation Note Consultation Note transferred before he could be seen
== END 2016-12-03 15:46 | disposition short-term general hospital (02) | DRG 68 ==
LOC: ENRESERVDT → ENRESERVTM → C.EDB 22:15 → C.2T 12-03 00:49
PROVIDERS: ADMIT Hospitalist; ATTEND Hospitalist
DX: I65.21 Occlusion and stenosis of right carotid artery (principal); I10 Essential (primary) hypertension; K14.8 Other diseases of tongue; J43.9 Emphysema, unspecified; Z83.3 Family history of diabetes mellitus; Z82.49 Family history of ischemic heart disease and other diseases of the circulatory system; Z88.0 Allergy status to penicillin; G52.3 Disorders of hypoglossal nerve; R27.0 Ataxia, unspecified

== ENCOUNTER → 2016-12-02 | Outpatient (CLI) | payer BC ==
[~2016-12-02] MED LIST changes: +GADAVIST IV PRN
--- NOTE | 2016-12-02 21:23 | DIAGNOSTIC IMAGING REPORT ---
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 COMPARISON STUDY: Head CT 11/08/2016. FINDINGS: There is no mass, hematoma, midline shift, or acute infarct. The paranasal sinuses are clear. The mastoid air cells are clear. An old small lacunar infarct is seen within the left cerebellar hemisphere, unchanged. The ventricles and sulci demonstrate mild age-related involutional changes. There are few scattered foci of T2 hyperintensity seen within the periventricular and subcortical white matter are nonspecific but suggestive of minimal microvascular ischemic changes. There is abnormal rind of T1 hyperintense signal surrounding the distal right cervical internal carotid artery and extending into the petrous segment of the internal carotid artery. This is consistent with a dissection. This results in mild narrowing of the distal right internal carotid artery. No abnormal enhancement. IMPRESSION: 1. There is abnormal rind of T1 hyperintense signal surrounding the distal right cervical internal carotid artery and extending into the petrous segment of the internal carotid artery. This is consistent with a dissection. This results in mild narrowing of the distal right internal carotid artery. 2. No acute intracranial abnormality. 3. 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 Electronically signed by: Davide Chapman M.D. 12/02/2016 9:50 PM Dictated Date/Time: 12/02/2016 9:09 PM
--- NOTE | 2016-12-02 21:37 | DIAGNOSTIC IMAGING REPORT ---
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 COMPARISON STUDY: Neck ultrasound 11/21/2016. FINDINGS: There is asymmetric posterior protrusion of the right tongue base in comparison to the left. This is consistent with the patient's history of paralysis. There is an abnormal rind of T1 hyperintense signal surrounding the mid to distal right internal carotid artery extending up to the petrous segment. This is consistent with a dissection. This results in mild narrowing of the right internal carotid artery. T2 hyperintense signal within the left internal jugular vein is likely due to slow flow. No definite thrombus identified. There is motion artifact resulting in suboptimal evaluation of the neck. Prevertebral soft tissues and the epiglottis are normal in thickness. There is a 1 cm right thyroid nodule. The lung apices appear clear. Paranasal sinuses and mastoid air cells are clear. There is no cervical lymphadenopathy. The parotid and submandibular glands are symmetric. There are no soft tissue masses identified within the neck. No significant airway compromise. IMPRESSION: 1. There is an abnormal rind of T1 hyperintense signal surrounding the mid to distal right internal carotid artery extending up to the petrous segment. This is consistent with a dissection. This results in mild narrowing of the right internal carotid artery. 2. Asymmetric posterior protrusion of the right tongue base in comparison to the left. This is consistent with the patient's history of paralysis. 3. A 1 cm right thyroid nodule. 4. These findings were discussed with Dr. Tio Gooden at 9:50 PM on 12/02/2016. Electronically signed by: Davide Chapman M.D. 12/02/2016 9:50 PM Dictated Date/Time: 12/02/2016 9:23 PM
== END | disposition home or self-care (01) ==
LOC: C.MRI 16:38
DX: G52.3 Disorders of hypoglossal nerve (principal); R22.0 Localized swelling, mass and lump, head

== ENCOUNTER 2016-12-05 12:07 | Emergency (ER) | payer BC, OTHER ==
[~2016-12-05] VITALS: Ht 180.3 cm; Wt 77.4 kg
[~2016-12-05 12:07] MED LIST changes: -AMLO2.5T2 PO; -CALCTAB5 PO; -CRS/10 PO; -LISI-461 PO; +NRV/5 PO; -OXYC-57 PO; +PSEU12TA PO; -PSEU30TA20 PO; -[UNRECOGNIZED DRUG - CODE] PO
[2016-12-05 12:12] VITALS: TEMP 36.4; Ht 180.3 cm; Wt 77.4 kg
[2016-12-05] MEDS ORDERED: OPTIRAY 320 IV PRN (13:15)
[2016-12-05 13:41] LABS: ISTAT HEMOGLOBIN 15.3 g/dl (14.0-18.0); ISTAT IONIZED CALCIUM 1.16 mmol/l (1.12-1.32)
[2016-12-05 13:45] LABS: MANUAL MICROSCOPIC REQUIRED? YES; URINE APPEARANCE TURBID (CLEAR); URINE BILIRUBIN NEG (NEG); URINE COLOR RED; URINE NITRITE NEG (NEG); URINE PH 6.5 (4.5-7.5); URINE SPECIFIC GRAVITY 1.025 (1.000-1.030); UROBILINOGEN NEG (NEG)
[2016-12-05 13:50] LABS: REVIEW REQ? NO; URINE RBC >30 /hpf (0-4)
[2016-12-05 13:54] LABS: BASO % 0.5 %; BASO ABS # 0.03 K/uL (0-0.2); COMPLETE YES; EOS % 6.2 %; HEMATOCRIT 43.3 % (42-52); IG% 0.5 %; LYMPH % 15.5 %; MEAN CELL VOLUME 86.6 fL (80-100); MEAN CORPUSCULAR HEMOGLOBIN 30.2 pg (25-34); MEAN CORPUSCULAR HGB CONC 34.9 g/dl (32-36); MEAN PLATELET VOLUME 9.6 fL (7.4-10.4); MONO % 9.3 %; PLATELET COUNT 217 K/uL (130-400); WHITE BLOOD COUNT 6.45 K/uL (4.8-10.8)
[2016-12-05 13:55] LABS: URINE BACTERIA NEG (NEG); URINE WBC 0 /hpf (0-5)
[2016-12-05 14:07] LABS: INR 0.9 (0.9-1.1); PROTHROMBIN TIME (PATIENT) 10.1 SECONDS (9.0-12.0)
[2016-12-05 14:10] LABS: BUN/CREATININE RATIO 20.5 (10-20); CALCIUM 9.5 mg/dl (8.5-10.1); CREATININE 1.1 mg/dl (0.60-1.40); POTASSIUM 3.6 mmol/L (3.5-5.1)
--- NOTE | 2016-12-05 14:49 | DIAGNOSTIC IMAGING REPORT ---
ABDOMEN AND PELVIS CT WITH IV CONTRAST CT DOSE: 642.85 mGycm HISTORY: Hematuria. eval for aortic aneurysm/fistula/cystic mass/hydronephrosis TECHNIQUE: Multiaxial CT images of the abdomen and pelvis were performed following the use of intravenous contrast. COMPARISON STUDY: None. FINDINGS: Tortuous descending thoracic aorta. Bibasilar linear densities consistent with subsegmental atelectasis. A 15 mm sclerotic focus within the sacrum favors a benign. There is levoscoliosis of the lumbar spine. A large diverticulum at the proximal jejunum which measures 4.5 cm. Tiny fat-containing umbilical hernia. A 7 mm hypodense lesion within the left hepatic lobe is too small to characterize but favors a cyst. The gallbladder, pancreas, spleen, and adrenal glands are unremarkable. No retroperitoneal lymphadenopathy. Focal fatty atrophy of the right gluteus medius muscle. Focal scarring within the upper pole of the left kidney. There is a punctate stone within the lower pole of the left kidney. No hydronephrosis. The ureters are normal and course and caliber. Bladder is mildly distended. There is hyperdense material and a punctate calcification layering posteriorly within the bladder. This favors blood products given the patient's history of hematuria. No bladder wall thickening. The prostate gland is enlarged and heterogeneous measuring up to 6.5 cm. Extensive colonic diverticulosis. No bowel wall thickening or obstruction. Normal appendix. IMPRESSION: 1. Hyperdense material layering within the bladder consistent with blood products given the patient's history of hematuria. There is no bladder wall thickening. However, the blood clot could obscure an underlying bladder mass. Urology consultation is recommended. 2. Left sided nephrolithiasis. No hydronephrosis. 3. Colonic diverticulosis. 4. No bowel wall thickening or obstruction. 5. Prostatomegaly. 6. A punctate calcification within the bladder. Electronically signed by: Davide Chapman M.D. 12/05/2016 2:48 PM Dictated Date/Time: 12/05/2016 2:29 PM
[2016-12-05 15:37] VITALS: BP 139/99; PULSE 78; O2SAT 94
--- NOTE | 2016-12-05 20:47 | EMERGENCY ROOM VISIT NOTE ---
History Report prepared by Bhavna: Sully Clemente Under the Supervision of: Dr. Gary Walker M.D. First contact with patient: 12:54 Chief Complaint: HEMATURIA Stated Complaint: BLEEDING W/URINATION DX: ANEURYSM Nursing Triage Summary: Pt reports hematuria since this morning Pt takes ASA daily History of Present Illness The patient is a 71 year old male who presents to the Emergency Room with complaints of persistent gross hematuria that began this morning. Yesterday, the patient's urine was normal and did not contain blood. Since this morning, his urine has been dark red in color. 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 He was placed on Heparin at that time. On Monday, the patient was having difficulty urinating while he was in the hospital and they catheterized him. There was some resistance with the catheter insertion. He has a history of prostate cancer. The catheter was removed after he was drained and he did not have trouble urinating on his own the rest of the day. [place] discharged the patient yesterday without any other intervention and will be following the patient regarding the carotid aneurysm. His heparin was stopped Monday evening. He is on aspirin only. Currently, the patient has no complaints other than the blood in his urine. Denies abdominal pain, back pain, vomiting, dysuria, flank pain, or other complaints. He does not think he has had a fever but has not taken his temperature. The patient is on aspirin and took 2 this morning. He does not have a history of aortic aneurysm. Source of History: patient Onset: this morning Position: other () Quality: other (gross hematuria) Timing: other (persistent) Associated Symptoms: No back pain, No chest pain, No vomiting Note: Denies dysuria, flank pain Review of Systems See HPI for pertinent positives & negatives. A total of 10 systems reviewed and were otherwise negative. Past Medical & Surgical Medical Problems: (1) Emphysema NEC (2) Enlargement of tongue (3) HTN (hypertension) (4) Internal carotid artery dissection Surgical Problems: (1) History of prostate biopsy Family History Diabetes mellitus FHx: cancer FHx: heart disease FHx: hypertension FHx: kidney disease Social History Smoking Status: Never Smoker Alcohol Use: occasionally Drug Use: none Marital Status: Housing Status: lives with family Occupation Status: retired Current/Historical Medications Scheduled Alpha-Lipoic Acid (Thioctic Ac (Alpha Lipoic Acid), 200 MG PO DAILY Amlodipine Besylate (Amlodipine Besylate), 5 MG PO BID Aspirin (Aspirin), 81 MG PO DAILY Cholecalciferol (Vitamin D3), 2,000 INTER.UNIT PO BID Coenzyme Q10 (Ubidecarenone) (Coenzyme Q-10), 100 MG PO DAILY Magnesium Oxide (Mg Supplement (Magnesium), 400 MG PO QPM Multiple Vitamin (Multivitamin), 1 TABLET PO DAILY Pseudoephedrine Hcl (Decongestant 12HOUR Maxim), 1 TAB PO Q12 Psyllium (Metamucil Powder), 1 PACK PO BID Sildenafil Citrate (Viagra), 25 MG PO PRN [Chromium], 1 TABLET PO DAILY Scheduled PRN Ibuprofen Tab (Advil), 200 MG PO UD PRN for Pain Allergies Coded Allergies: Penicillins (Unverified Allergy, Unknown, ANAPHYLAXIS, 11/08/16) as a child, feels that he got dilerious & high fever. Physical Exam Vital Signs Date Time Temp Pulse Resp B/P Pulse Ox O2 Delivery O2 Flow Rate FiO2 12/05/16 15:37 78 18 139/99 94 Room Air 12/05/16 13:59 88 20 127/88 100 Room Air 12/05/16 12:12 36.4 78 18 142/103 95 Room Air Physical Exam Constitutional: Vital signs reviewed. Eyes: Pupils are equal round reactive to light. Conjunctiva are noninjected. ENT: Pharynx is clear without erythema or exudate. Mucous membranes are moist. Neck supple without meningeal signs. Respiratory: Clear to auscultation bilaterally. Breath sounds are equal bilaterally. Cardiovascular: Regular rate and rhythm. No rubs or gallops. GI: Soft, nondistended and nontender. Bowel sounds are present. Musculoskeletal: No peripheral edema. No lower extremity tenderness. No CVA tenderness. Integumentary: No cyanosis. Neurological: The patient is awake and alert. Cranial nerves II-XII are intact. Motor is 5 out of 5 all extremities. Sensation is intact to light touch all extremities. Normal speech. No pronator drift. Psychiatric: Normal affect. Medical Decision & Procedures ER Provider Diagnostic Interpretation: CT results as stated below per my review and radiologist interpretation. ABDOMEN AND PELVIS CT WITH IV CONTRAST CT DOSE: 642.85 mGycm HISTORY: Hematuria. eval for aortic aneurysm/fistula/cystic mass/hydronephrosis TECHNIQUE: Multiaxial CT images of the abdomen and pelvis were performed following the use of intravenous contrast. COMPARISON STUDY: None. FINDINGS: Tortuous descending thoracic aorta. Bibasilar linear densities consistent with subsegmental atelectasis. A 15 mm sclerotic focus within the sacrum favors a benign. There is levoscoliosis of the lumbar spine. A large diverticulum at the proximal jejunum which measures 4.5 cm. Tiny fat-containing umbilical hernia. A 7 mm hypodense lesion within the left hepatic lobe is too small to characterize but favors a cyst. The gallbladder, pancreas, spleen, and adrenal glands are unremarkable. No retroperitoneal lymphadenopathy. Focal fatty atrophy of the right gluteus medius muscle. Focal scarring within the upper pole of the left kidney. There is a punctate stone within the lower pole of the left kidney. No hydronephrosis. The ureters are normal and course and caliber. Bladder is mildly distended. There is hyperdense material and a punctate calcification layering posteriorly within the bladder. This favors blood products given the patient's history of hematuria. No bladder wall thickening. The prostate gland is enlarged and heterogeneous measuring up to 6.5 cm. Extensive colonic diverticulosis. No bowel wall thickening or obstruction. Normal appendix. IMPRESSION: 1. Hyperdense material layering within the bladder consistent with blood products given the patient's history of hematuria. There is no bladder wall thickening. However, the blood clot could obscure an underlying bladder mass. Urology consultation is recommended. 2. Left sided nephrolithiasis. No hydronephrosis. 3. Colonic diverticulosis. 4. No bowel wall thickening or obstruction. 5. Prostatomegaly. 6. A punctate calcification within the bladder. Electronically signed by: Davide Chapman M.D. 12/05/2016 2:48 PM Dictated Date/Time: 12/05/2016 2:29 PM Laboratory Results 12/05/16 13:20 Red Blood Count 5.00, Mean Corpuscular Volume 86.6, Mean Corpuscular Hemoglobin 30.2, Mean Corpuscular Hemoglobin Concent 34.9, Mean Platelet Volume 9.6, Neutrophils (%) (Auto) 68.0, Lymphocytes (%) (Auto) 15.5, Monocytes (%) (Auto) 9.3, Eosinophils (%) (Auto) 6.2, Basophils (%) (Auto) 0.5, Neutrophils # (Auto) 4.39, Lymphocytes # (Auto) 1.00, Monocytes # (Auto) 0.60, Eosinophils # (Auto) 0.40, Basophils # (Auto) 0.03 12/05/16 13:20 Test 12/05/16 13:00 12/05/16 13:20 12/05/16 13:30 Urine Color RED Urine Appearance TURBID (CLEAR) Urine pH 6.5 (4.5-7.5) Urine Specific Poston 1.025 (1.000-1.030) Urine Protein 3+ (NEG) Urine Glucose (UA) NEG (NEG) Urine Ketones NEG (NEG) Urine Occult Blood 3+ (NEG) Urine Nitrite NEG (NEG) Urine Bilirubin NEG (NEG) Urine Urobilinogen NEG (NEG) Urine Leukocyte Esterase (NEG) Urine RBC >30 /hpf (0-4) Urine WBC 0 /hpf (0-5) Urine Epithelial Cells 0-5 /lpf (0-5) Urine Bacteria NEG (NEG) White Blood Count 6.45 K/uL (4.8-10.8) Red Blood Count 5.00 M/uL (4.7-6.1) Hemoglobin 15.1 g/dL (14.0-18.0) Hematocrit 43.3 % (42-52) Mean Corpuscular Volume 86.6 fL (80-100) Mean Corpuscular Hemoglobin 30.2 pg (25-34) Mean Corpuscular Hemoglobin Concent 34.9 g/dl (32-36) Platelet Count 217 K/uL (130-400) Mean Platelet Volume 9.6 fL (7.4-10.4) Neutrophils (%) (Auto) 68.0 % Lymphocytes (%) (Auto) 15.5 % Monocytes (%) (Auto) 9.3 % Eosinophils (%) (Auto) 6.2 % Basophils (%) (Auto) 0.5 % Neutrophils # (Auto) 4.39 K/uL (1.4-6.5) Lymphocytes # (Auto) 1.00 K/uL (1.2-3.4) Monocytes # (Auto) 0.60 K/uL (0.11-0.59) Eosinophils # (Auto) 0.40 K/uL (0-0.5) Basophils # (Auto) 0.03 K/uL (0-0.2) RDW Standard Deviation 43.1 fL (36.4-46.3) RDW Coefficient of Variation 13.7 % (11.5-14.5) Immature Granulocyte % (Auto) 0.5 % Immature Granulocyte # (Auto) 0.03 K/uL (0.00-0.02) Prothrombin Time 10.1 SECONDS (9.0-12.0) Prothromb Time International Ratio 0.9 (0.9-1.1) Activated Partial Thromboplast Time 25.8 SECONDS (21.0-31.0) Partial Thromboplastin Ratio 1.0 Est Creatinine Clear Calc Drug Dose 63.7 ml/min Estimated GFR () 76.8 Estimated GFR (Non- 66.2 BUN/Creatinine Ratio 20.5 (10-20) Calcium Level 9.5 mg/dl (8.5-10.1) Bedside Hemoglobin 15.3 g/dl (14.0-18.0) Bedside Hematocrit 45 % (42-52) Bedside Sodium 136 mEq/L (135-144) Bedside Potassium 3.6 mEq/L (3.3-5.0) Bedside Chloride 100 mEq/L (101-112) Bedside Total CO2 25 mEq/l (24-31) Anion Gap 16.0 mmol/L (16-25) Bedside Blood Urea Nitrogen 23 mg/dl (7-18) Bedside Creatinine 1.0 mg/dl (0.6-1.3) Bedside Glucose (other) 85 mg/dl (70-99) Bedside Ionized Calcium (Yolis) 1.16 mmol/l (1.12-1.32) Laboratory results as reviewed by me. ED Course 1300: The patient was evaluated in room C3. A complete history and physical exam was performed. 1508: I reevaluated the patient and talked to him about test results. He urinated again and is still passing some blood. 1513: I discussed the case with Dr. Mario - [facility]. He said that the patient can be sent home with instructions to drink plenty of fluids. The office will arrange for a cystoscopy. 1518: I reassessed the patient and discussed plan with him and his . I discussed return instructions as well. They agreed with the plan. The patient will be discharged home. Medical Decision This is a 71-year-old male who presents with gross hematuria. Differential diagnosis includes bladder mass, hemorrhagic cystitis, UTI, renal mass, aortic aneurysm. I did perform a limited focused review of portions of the patient's old chart on the electronic medical record. He was admitted here on the and transferred to [place] for internal carotid artery aneurysm with left sided weakness. He was placed on Heparin at that time. I did evaluate the patient as noted above. The patient is presenting with gross hematuria without any other symptoms. He denies any fever. He has no abdominal pain or back pain. IV access was established. I did order and personally review the patient's urinalysis as described above. He does have hematuria without signs of infection. I did order and review the patient's blood work as noted in the electronic medical record. He is not anemic. Renal function is normal. I did order a CT of the abdomen and pelvis. I did review the images myself as well as the radiology report as described above. There is no evidence of aortic aneurysm. He has blood in his bladder but no other acute abnormalities. I did discuss the case with Dr. Mario who is his urologist. He recommended outpatient follow up for cystoscopy. I did discuss the results with the patient and his . I did recommend good hydration and follow up with Dr. Mario. He was advised to return should he have any worsening symptoms or develop any new symptoms such as inability to urinate. He was discharged in good condition. Consults Time Called: 1505 Consulting Physician: Dr. Mario - [facility] Returned Call: [phone] I discussed the case with him. He said that the patient can be sent home with instructions to drink plenty of fluids. The office will arrange for a cystoscopy. Impression Primary Impression: Gross hematuria Additional Impression: Prostate cancer Scribe Attestation The scribe's documentation has been prepared under my direct and personally reviewed by me in its entirety. I confirm that the note above accurately reflects all work, treatment, procedures, and medical decision making performed by me. Departure Information Dispostion Home / Self-Care Referrals Benji Oh M.D. (PCP) Patient Instructions ED Hematuria, My [facility] Additional Instructions You have been examined and treated today on an emergency basis only. This is not a substitute for, or an effort to provide, complete comprehensive medical care. It is impossible to recognize and treat all injuries or illnesses in a single emergency department visit. It is therefore important that you follow up closely with Dr. Mario for cystoscopy. Call as soon as possible for an appointment. Return for worsening symptoms or if you develop fever, vomiting, abdominal pain, weakness, shortness of breath or lightheadedness, burning on urination, inability to urinate or any other concerning symptoms. Problem Qualifiers
== END 2016-12-05 15:40 | disposition home or self-care (01) ==
LOC: C.EDB 12:09 → C.EDC 15:40
DX: R31.9 Hematuria, unspecified (principal); C61 Malignant neoplasm of prostate; N20.0 Calculus of kidney; K57.30 Diverticulosis of large intestine without perforation or abscess without bleeding; I10 Essential (primary) hypertension; Z79.82 Long term (current) use of aspirin; Z84.1 Family history of disorders of kidney and ureter; Z83.3 Family history of diabetes mellitus; Z82.49 Family history of ischemic heart disease and other diseases of the circulatory system

== ENCOUNTER → 2016-12-07 | Outpatient (CLI) | payer BC | END | disposition home or self-care (01) | LOC: C.LAB 11:14 | PROVIDERS: ATTEND Nurse Practitioner Adult Health | DX: R31.0 Gross hematuria (principal) ==

== ENCOUNTER → 2016-12-24 | Outpatient (CLI) | payer BC | END | disposition home or self-care (01) | LOC: C.LAB 08:56 | PROVIDERS: ATTEND Urology | DX: N39.0 Urinary tract infection, site not specified (principal) ==

== ENCOUNTER → 2017-02-20 | Outpatient (CLI) | payer BC ==
[2017-02-20 10:05] LABS: BLOOD UREA NITROGEN 18 mg/dl (7-18); BUN/CREATININE RATIO 16.5 (10-20)
== END | disposition home or self-care (01) ==
LOC: C.LAB 08:47
PROVIDERS: ATTEND Urology
DX: C61 Malignant neoplasm of prostate (principal)

== ENCOUNTER → 2017-05-12 | Outpatient (CLI) | payer BC ==
[~2017-05-12] VITALS: Ht 179.1 cm; Wt 80.4 kg
[2017-05-12 14:09] VITALS: BP 133/94; PULSE 67; Ht 179.1 cm; Wt 80.4 kg
== END | disposition home or self-care (01) ==
LOC: C.NEUR 13:13
PROVIDERS: ATTEND Physician Assistant
DX: G47.33 Obstructive sleep apnea (adult) (pediatric) (principal)

== ENCOUNTER → 2017-08-21 | Outpatient (CLI) | payer BC ==
[2017-08-21 12:36] LABS: FREE PSA 0.65 ng/ml; PROSTATE SPECIFIC ANTIGEN 2.92 ng/ml (0.000-4.000)
== END | disposition home or self-care (01) ==
LOC: C.LAB 11:30
PROVIDERS: ATTEND Urology
DX: R97.20 Elevated prostate specific antigen [PSA] (principal)

== ENCOUNTER → 2017-11-16 | Outpatient (CLI) | payer BC ==
[~2017-11-16] VITALS: Ht 175.3 cm; Wt 85.0 kg
[2017-11-16 14:40] VITALS: BP 128/87; PULSE 74; Ht 175.3 cm; Wt 85.0 kg
== END | disposition home or self-care (01) ==
LOC: C.NEUR 14:16
PROVIDERS: ATTEND Internal Medicine Pulmonary Disease
DX: G47.33 Obstructive sleep apnea (adult) (pediatric) (principal)

== ENCOUNTER → 2018-02-19 | Outpatient (CLI) | payer BC ==
--- NOTE | 2018-02-19 09:06 | DIAGNOSTIC IMAGING REPORT ---
KUB HISTORY: R97.20 Elevated prostate specific antigen (PSA)N40.0 Benign loca COMPARISON: Abdomen and pelvis CT 12/05/2016. FINDINGS: The bowel gas pattern is unremarkable. There are no dilated loops of small bowel to suggest an obstruction. The patient is a left-sided nephrolithiasis is obscured by the overlying bowel gas. No ureteral calculi. Levoscoliosis. Multiple calcifications in the deep pelvis likely represent phleboliths. Stable 2.1 cm sclerotic focus within the sacrum. This favors a benign lesion. No new osseous lesions identified. No pneumoperitoneum or pneumatosis. IMPRESSION: No renal or ureteral calculi identified by conventional radiographic technique. Electronically signed by: Davide Chapman M.D. 02/19/2018 9:04 AM Dictated Date/Time: 02/19/2018 9:02 AM
[2018-02-19 10:08] LABS: BLOOD UREA NITROGEN 24 mg/dl (7-18)
== END | disposition home or self-care (01) ==
LOC: C.RAD 08:24
PROVIDERS: ATTEND Urology
DX: N40.0 Benign prostatic hyperplasia without lower urinary tract symptoms (principal); R97.20 Elevated prostate specific antigen [PSA]; N52.9 Male erectile dysfunction, unspecified; R31.0 Gross hematuria; C61 Malignant neoplasm of prostate; N39.0 Urinary tract infection, site not specified

== ENCOUNTER → 2018-05-24 | Outpatient (CLI) | payer BC ==
[~2018-05-24] VITALS: Ht 175.3 cm; Wt 83.3 kg
[2018-05-24 13:32] VITALS: BP 131/88; PULSE 60; Ht 175.3 cm; Wt 83.3 kg
== END | disposition home or self-care (01) ==
LOC: C.NEUR 13:11
PROVIDERS: ATTEND Physician Assistant
DX: G47.33 Obstructive sleep apnea (adult) (pediatric) (principal); N40.0 Benign prostatic hyperplasia without lower urinary tract symptoms; R97.20 Elevated prostate specific antigen [PSA]; Z80.42 Family history of malignant neoplasm of prostate

== ENCOUNTER 2025-06-18 16:53 | Inpatient (IN) ==
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
[2025-06-18 17:45] LABS: Hematocrit (blood only) 40.2 % (42.0-52.0); Hemoglobin 14.0 g/dl (14.0-18.0); Immature Granulocytes # (auto) 0.03 K/uL (0.01-0.20); Immature Granulocytes % (auto) 0.4 %; Mean Corpuscular Hemoglobin 30.9 pg (25.0-34.0); Mean Corpuscular Volume 88.7 fL (80.0-100.0); Platelet Count 203 K/uL (130-400); RDW Standard Deviation 42.6 fL (36.4-46.3); Red Blood Count 4.53 M/uL (4.70-6.10); White Blood Count 6.74 K/ul (4.8-10.8)
[2025-06-18 18:03] LABS: Alanine Aminotransferase 20.0 U/L (7-52); Albumin Globulin Ratio 1.6 (0.9-2); Albumin Level 3.9 gm/dl (3.4-5.0); Alkaline Phosphatase 72.0 U/L (34-104); Anion Gap 8.0 (3-11); Bilirubin,Total 0.8 mg/dl (0.2-1.0); Blood Urea Nitrogen 24.0 mg/dl (6-23); Calcium 9.1 mg/dl (8.6-10.3); Carbon Dioxide 26.0 mmol/L (21-32); Chloride 107.0 mmol/L (98-107); Creatinine Clr Calc Pharmacy 55.3 ml/min; Globulin 2.4 gm/dl (2.5-4.0); Glucose 103.0 mg/dl (70-99(Fasting)); Potassium 3.8 mmol/L (3.5-5.1); Sodium 141.0 mmol/L (136-145); Total Protein 6.3 gm/dl (6.0-8.3)
[2025-06-18 18:26] LABS: Appearance Urine Turbid (Clear); Bacteria Urine Automated None Seen (None Seen); Cast Urine Automated 0-2 /lpf (0-2); Epithelial Cell Urine Auto 0-2 /hpf (0-2); Glucose Urine UA Negative (Negative); RBC Urine Automated 0-2 /hpf (0-2); WBC Urine Automated 0-5 /hpf (0-5)
[2025-06-18 18:26] LABS: INR 1.0 (0.9-1.1); Prothrombin Time 10.4 Seconds (9.0-12.0)
--- NOTE | 2025-06-18 19:01 | CT Scan Report ---
Clinical History: Altered mental status Technique: Axial computed tomography images were obtained of the brain without intravenous contrast. Findings: There is diffuse cerebral atrophy, within expected limits for the patient's age. Areas of decreased attenuation are seen within the periventricular white matter, likely representing chronic small vessel ischemic disease. There is a small old infarct of the left cerebellar hemisphere There is no definite sign of acute infarction. No intracranial hemorrhage is evident. No definite mass lesion is seen on this noncontrast examination. There is no midline shift or other form of herniation. No hydrocephalus is seen. No fracture is identified. The orbits and the visualized paranasal sinuses appear unremarkable. The mastoid air cells appear clear. Impression: 1. Cerebral atrophy and chronic small vessel ischemic disease 2. Old cerebellar infarct 3. No definite acute pathology Electronically signed by Mickey Jorgensen 06-18-2025 7:00 PM
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
[2025-06-18] MEDS ORDERED: DOCUSATE SODIUM 100 MG CAP PO PRN (21:32)
[2025-06-18] MEDS ORDERED: ONDANSETRON INJ 2 MG/ML 2 ML VIAL IV PRN (21:32)
[2025-06-19] MEDS: risperiDONE 0.25 MG TAB PO STA (00:44)
[2025-06-19] MEDS: MEMANTINE HCL 5 MG TAB PO SCH (04:15)
[2025-06-19] MEDS: ENOXAPARIN INJ 40 MG/0.4 ML SYR SQ SCH (06:01)
[2025-06-19] MEDS ORDERED: Nursing to Pharmacy Communication SCH (06:15)
[2025-06-19] MEDS: risperiDONE 0.25 MG TAB PO SCH (08:15)
[2025-06-19] MEDS: LORazepam 1 MG TAB PO PRN (08:15)
[2025-06-19] MEDS: SERTRALINE HCL 50 MG TABLET PO SCH (08:15)
[2025-06-19] MEDS: LOSARTAN POTASSIUM 25 MG TAB PO SCH (08:15)
[2025-06-19] MEDS: hydroCHLOROthiazide 25 MG TAB PO SCH (08:16)
[2025-06-19] MEDS: DONEPEZIL HCL 10 MG TAB PO SCH (08:16)
--- NOTE | 2025-06-19 08:20 | XRay Report ---
EXAM: XR chest 1V portable CLINICAL HISTORY: Confusion. TECHNIQUE: An X-ray image of the chest is obtained in AP portable projection. COMPARISON: No prior studies are available for comparison. FINDINGS: Pulmonary Parenchyma: Right upper zone faint, ill-defined opacity which could be a summation artifact from vascular markings overlying the costochondral junction. No consolidation or collapse No evidence of pleural effusion or pleural thickening. Heart and Mediastinum: Caediomegaly is seen No mediastinal widening or masses. No hilar or mediastinal lymphadenopathy. Bony Thorax: Bony thorax appears intact without fractures or deformities. Soft Tissues: Soft tissues overlying the chest wall are unremarkable. IMPRESSION: 1. No consolidation or collapse 2. Cardiomegaly 3. Right upper zone faint ill-defined opacity which could be summation artifact from vascular markings overlying the costochondral junction. Electronically signed by Kvng Romero 06-19-2025 08:18 AM
--- NOTE | 2025-06-19 10:51 | Electrocardiogram Report ---
Test Reason : Blood Pressure : */* mmHG Vent. Rate : 65 BPM Atrial Rate : 65 BPM P-R Int : 198 ms QRS Dur : 84 ms QT Int : 388 ms P-R-T Axes : 77 16 22 degrees QTcB Int : 403 ms Normal sinus rhythm Normal ECG When compared with ECG of 02-Dec-2016 22:34, No significant change was found Confirmed by Nikita Hinojosa ([id number]) on 06/19/2025 10:51:18 AM Referred By: REFERRED SELF Confirmed By: Nikita Hinojosa
--- NOTE | 2025-06-19 15:57 | Hospitalist Progress Note ---
Date of Service June 19, 2025 Assessment & Plan (1) Dementia with agitation: (2) Obstructive sleep apnea of adult: (3) HTN (hypertension): (4) Prostate cancer: Plan #dementia with agitation - has become aggressive over the past few years, it is no longer safe for him to live at home with his . Head CT negative, no signs of acute infection, electrolytes stable. - no overt delirogenic causes identified, and unfortunately current status seems c/w baseline decline - safe environment, home meds. only utilize prn sedation if violent agitation #BEATRIZ - suspect will not be compliant with CPAP, defer at this time #HTNcontinue HCTZ and losartan #prostate cancerDx in 2012, under surveillance. Continue dutasteride. 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 case management aware Admission and Anticipated Discharge Date Admission Date: June 18, 2025 Subjective no meaningful HPI or ROS obtainable d/w nursing - gets quite agitated with any movement; also frequently incontinent of urine Physical Exam Physical Exam: in bed, mildly agitated but no distress breathing unlabored no accessory muscles good effort skin no rashes no pallor or icterus neuro no lateralizing signs Results & Data Results & Data Vital Signs (Past 12 Hours) Vital Signs Temp Pulse Resp BP Pulse Ox O2 Del Method 06/19/25 14:57 98.4 F 82 18 158/93 H 92 Room Air 06/19/25 08:14 97.7 F 85 16 142/91 H 93 Room Air PG Care Time/CCT Total # of Minutes Spent Total Time Spent with Patient: Total time spent is greater than 50% in coordination of care (as documented) at patient's floor/unit and/or counseling patient: Coding Level of Care Code 39241 SUB INP/OBS CARE 2/35MIN Diagnoses Dementia with agitation F03.911 Obstructive sleep apnea of adult G47.33 HTN (hypertension) I10 Prostate cancer C61
[2025-06-19 17:04] LABS: Anion Gap 11.0 (3-11); Blood Urea Nitrogen 15.0 mg/dl (6-23); Calcium 9.6 mg/dl (8.6-10.3); Carbon Dioxide 27.0 mmol/L (21-32); Chloride 102.0 mmol/L (98-107); Creatinine Clr Calc Pharmacy 63.3 ml/min; Glucose 109.0 mg/dl (70-99(Fasting)); Potassium 3.0 mmol/L (3.5-5.1); Sodium 140.0 mmol/L (136-145)
[2025-06-19] MEDS: MELATONIN 3 MG TAB PO PRN (21:35)
[2025-06-19] MEDS: ACETAMINOPHEN 325 MG TAB PO PRN (21:36)
[2025-06-19] MEDS: POTASSIUM CHLORIDE 20 MEQ/15 ML UDC PO SCH (21:38)
[2025-06-20] MEDS: ENOXAPARIN INJ 40 MG/0.4 ML SYR SQ SCH (06:14)
--- NOTE | 2025-06-20 10:19 | Hospitalist Progress Note ---
Date of Service June 20, 2025 Assessment & Plan (1) Dementia with agitation: (2) Dementia: (3) Obstructive sleep apnea of adult: (4) HTN (hypertension): Plan #Dementia with agitation - has become aggressive over the past few years, it is no longer safe for him to live at home with his . Head CT negative, no signs of acute infection, electrolytes stable. - no overt delirogenic causes identified, and unfortunately current status seems c/w baseline decline - safe environment, home meds. only utilize prn sedation if violent agitation #BEATRIZ - suspect will not be compliant with CPAP, defer at this time #HTNcontinue HCTZ and losartan #prostate cancerDx in 2013, under surveillance. Continue dutasteride. VTE ppx: Lovenox Dispo: stable on medical, but will need group home placement. case management aware Admission and Anticipated Discharge Date Admission Date: June 18, 2025 Supervising Physician Co-Signing Physician Notes I personally examined the patient and verified all [place] points of history and exam, discussed case, and agree with decision making with Dr Hodgson no new issues. Did not appear to need any additional medications overnight. Family and case management working together on disposition options. Vitals noted. In bed. No apparent distress. Breathing unlabored. Otherwise as above. Progressed dementiano longer safe at home. Follow-up for behavioral disturbance, but thus far has been fairly easy to take care of. Case management and family working on long-term disposition options. DVT prophylaxisLovenox otherwise as above. Subjective no meaningful HPI or ROS obtainable d/w nursing - gets quite agitated with any movement; also frequently incontinent of urine Review of Systems Review of Systems: As per HPI Physical Exam Physical Exam: in bed, mildly agitated but no distress breathing unlabored no accessory muscles good effort skin no rashes no pallor or icterus neuro no lateralizing signs Results & Data Results & Data Vital Signs (Past 12 Hours) Vital Signs Temp Pulse Resp BP BP Pulse Ox O2 Del Method 06/20/25 08:26 36.4 C L 60 20 119/80 90 Room Air 06/19/25 22:30 36.9 C 94 H 18 136/93 91 Room Air Resident Activity Tracking Resident Involvement: Resident Care Provided Care Provided: Adult Hospital Medicine (2) Dementia Dementia behavioral or psychological symptom: with agitation Dementia severity: unspecified severity Dementia type: unspecified type Qualified Code(s): F03.911 - Unspecified dementia, unspecified severity, with agitation
[2025-06-20 10:47] LABS: Anion Gap 7.0 (3-11); Calcium 9.4 mg/dl (8.6-10.3); Carbon Dioxide 28.0 mmol/L (21-32); Chloride 104.0 mmol/L (98-107); Potassium 3.3 mmol/L (3.5-5.1); Sodium 139.0 mmol/L (136-145)
[2025-06-20 10:54] LABS: Blood Urea Nitrogen 20.0 mg/dl (6-23); Creatinine Clr Calc Pharmacy 39.3 ml/min; Glucose 124.0 mg/dl (70-99(Fasting))
--- NOTE | 2025-06-20 12:43 | Billing Data ---
Date of Service June 20, 2025 Coding Level of Care Code 93221 SUB INP/OBS CARE
--- NOTE | 2025-06-21 10:33 | Hospitalist Progress Note ---
Date of Service June 21, 2025 Assessment & Plan (1) Dementia with agitation: (2) Dementia: (3) Obstructive sleep apnea of adult: (4) HTN (hypertension): Plan #Dementia with agitation - has become aggressive over the past few years, it is no longer safe for him to live at home with his . Head CT negative, no signs of acute infection, electrolytes stable. - no overt delirogenic causes identified, and unfortunately current status seems c/w baseline decline - safe environment, home meds. only utilize prn sedation if violent agitation #BEATRIZ - suspect will not be compliant with CPAP, defer at this time #HTNcontinue HCTZ and losartan #prostate cancerDx in 2013, under surveillance. Continue dutasteride. VTE ppx: Lovenox Dispo: stable on medical, but will need group home placement. case management aware Admission and Anticipated Discharge Date Admission Date: June 18, 2025 Supervising Physician Co-Signing Physician Notes I personally examined the patient and verified all [place] points of history and exam, discussed case, and agree with decision making with Dr [place] Sleeping comfortably whenever I saw him earlier. Later was there and wanted to discuss medications. At that time the patient was sitting up and asking for his clothes and wanting to go home. Vitals noted, a little bit agitated but easy to distract, he still seems emotionally upset tense and reserved but seems to be distractible into at least staying in the bed and being a little bit obstinate and not wanting to have a conversation while having a conversation. Breathing unlabored no accessory muscle use good effort. Skin without rashes pallor or icterus. Neuro without focal deficits. Progressed dementiano longer safe at home. Follow-up for behavioral disturbance, but thus far has been fairly easy to take care of. Case management and family working on long-term disposition options. Discussed medications with (and with daughter) discussed that there is really not any good answer for medications for dementia with agitationand therefore I tend to approach the situation as trying to "make the best bad option"with that in mind I am really only trying to medicate as needed violent agitation, and distract/reassure/etc. for any other situation. Because he came in on several medications, I discussed that I also did not really want to "rock the boat" reducing things drastically, especially whenever he is in a currently new environment which could provoke agitation as wellbut once he is in a stable environment for a while at an SNF, probably slow reducing medications that do not seem to be helping would be the best approach. I did discuss that every now and then someone can have such a near constantly agitated or dysphoric state with their dementia that some degree of sedation with medications becomes the "best bad option" but discussed that that particular scenario is fortunately fairly rare. - Given that he was calmer earlier and then was constantly talk about wanting to go home once his arrived, discussed with the patient's that it would not at all be selfish for her to not be at the bedside all the time if she felt that she was leading to him having distress. She noted that he does not really recognize her anymore anyway. Discussed that it would be okay if she does not come, that we would understand that she is not neglecting him or abandoning him, and that we would do our best to try to keep her updated if we do not see her [id number]. DVT prophylaxisLovenox otherwise as above. Subjective Patient seen resting comfortably this AM. Overnight received IM Zyprexa due to ongoing agitation. no meaningful HPI or ROS obtainable this AM. Patient remains afebrile and hemodynamically stable. Physical Exam Physical Exam: General: patient resting comfortably, NAD, non-toxic in appearance, answers questions appropriately. Skin: warm, dry, intact HEENT: NC/AT, anicteric sclera, conjunctiva without injection, moist mucus membranes. Heart: +S1/S2, regular, no m/r/g Lungs: equal air entry bilaterally, no rales/rhonchi/wheezes Abd: +BS, soft, NT/ND Ext: warm, no clubbing/cyanosis or edema Neuro: nonfocal, speech intact, no facial droop, moving all extremities. (2) Dementia Dementia behavioral or psychological symptom: with agitation Dementia severity: unspecified severity Dementia type: unspecified type Qualified Code(s): F03.911 - Unspecified dementia, unspecified severity, with agitation
--- NOTE | 2025-06-21 16:09 | Billing Data ---
Date of Service June 21, 2025 Coding Level of Care Code 66814 SUB INP/OBS CARE MIN
[2025-06-21] MEDS: POTASSIUM CHLORIDE 10 MEQ TABCR PO STA (18:46)
[2025-06-22 10:08] LABS: Anion Gap 8.0 (3-11); Blood Urea Nitrogen 30.0 mg/dl (6-23); Calcium 9.5 mg/dl (8.6-10.3); Carbon Dioxide 26.0 mmol/L (21-32); Chloride 106.0 mmol/L (98-107); Creatinine Clr Calc Pharmacy 51.3 ml/min; Glucose 106.0 mg/dl (70-99(Fasting)); Potassium 3.6 mmol/L (3.5-5.1); Sodium 140.0 mmol/L (136-145)
--- NOTE | 2025-06-22 13:37 | Hospitalist Progress Note ---
Date of Service June 22, 2025 Assessment & Plan (1) Dementia with agitation: (2) Dementia: (3) Obstructive sleep apnea of adult: (4) HTN (hypertension): Plan #Dementia with agitation - has become aggressive over the past few years, it is no longer safe for him to live at home with his . Head CT negative, no signs of acute infection, electrolytes stable. - no overt delirogenic causes identified, and unfortunately current status seems c/w baseline decline - safe environment, home meds. only utilize prn sedation if violent agitation #BEATRIZ - suspect will not be compliant with CPAP, defer at this time #HTNcontinue HCTZ and losartan #prostate cancerDx in 2013, under surveillance. Continue dutasteride. VTE ppx: Lovenox Dispo: stable on medical, but will need long-term placement. case management aware Admission and Anticipated Discharge Date Admission Date: June 18, 2025 Supervising Physician Co-Signing Physician Notes I personally examined the patient and verified all [place] points of history and exam, discussed case, and agree with decision making with Dr Espana HPI obviously extremely limited due to severe dementia. For what is worth he denies shortness of breath. Nursing notes a new 2 L oxygen requirement, not just when he is asleep. Vitals noted, in general he is awake and alert more pleasant, today I would place his demeanor as "pleasantly standoffish" instead of guarded. HEENT normocephalic atraumatic mucous membranes moist. Lungs show faint bibasilar rales he has no appearance of dyspnea no accessory muscle use no conversational dyspnea. Skin without rashes pallor or icterus. Progressed dementiano longer safe at home. Follow-up for behavioral disturbance, but thus far has been fairly easy to take care of. Case management and family working on long-term disposition options. 06/21 Discussed medications with (and with daughter) discussed that there is really not any good answer for medications for dementia with agitationand therefore I tend to approach the situation as trying to "make the best bad option"with that in mind I am really only trying to medicate as needed violent agitation, and distract/reassure/etc. for any other situation. Because he came in on several medications, I discussed that I also did not really want to "rock the boat" reducing things drastically, especially whenever he is in a currently new environment which could provoke agitation as wellbut once he is in a stable environment for a while at an SNF, probably slow reducing medications that do not seem to be helping would be the best approach. I did discuss that every now and then someone can have such a near constantly agitated or dysphoric state with their dementia that some degree of sedation with medications becomes the "best bad option" but discussed that that particular scenario is fortunately fairly rare. - We had also discussed that it seems like possibly seeing his is a little bit of a trigger for him to start to only focus on wanting to go home. She notes that he does not recognize her anymore. I discussed with her that it is absolutely not selfish for her to stay home. I encouraged her to do so at this time, and noted that if we do not see her we can give daily updates by phone (obviously letting her know that more than likely the update would really be that everything is the same)fortunately today she did stay home, I do wonder if that is part of why he seems a little bit calmer, and I updated her by phone. New oxygen requirementnot really moving much, nonspecific rales on examI suspect atelectasis. Obviously if it progresses or if he shows any dyspnea, will workup further, but at this point in time supportive care. He cannot really follow instructions for deep breathing or incentive spirometry, unfortunately. DVT prophylaxisLovenox otherwise as above. Subjective Patient seen resting comfortably this AM. Patient is alert and oriented to name and date of , but does not know age or current location. Patient is in a pleasant mood and does not express any agitation when seen. Patient remains afebrile and hemodynamically stable. Physical Exam Physical Exam: General: patient resting comfortably, NAD, non-toxic in appearance, answers questions appropriately. Skin: warm, dry, intact HEENT: NC/AT, anicteric sclera, conjunctiva without injection, moist mucus membranes. Heart: +S1/S2, regular, no m/r/g Lungs: equal air entry bilaterally, no rales/rhonchi/wheezes Abd: +BS, soft, NT/ND Ext: warm, no clubbing/cyanosis or edema Neuro: nonfocal, speech intact, no facial droop, moving all extremities. Results & Data Results & Data Vital Signs (Past 12 Hours) Vital Signs Temp Pulse Resp BP Pulse Ox O2 Del Method O2 Flow Rate 08/17/25 11:50 36.4 C L 85 20 148/101 H 93 Nasal Cannula 2 06/22/25 07:30 Nasal Cannula 2 06/22/25 07:30 91 Nasal Cannula 2 06/22/25 07:22 36.8 C 65 20 133/84 88 L Room Air Resident Activity Tracking Resident Involvement: Resident Care Provided Care Provided: Adult Hospital Medicine (2) Dementia Dementia behavioral or psychological symptom: with agitation Dementia severity: unspecified severity Dementia type: unspecified type Qualified Code(s): F03.911 - Unspecified dementia, unspecified severity, with agitation
--- NOTE | 2025-06-22 15:01 | Billing Data ---
Date of Service June 22, 2025 Coding Level of Care Code 68145 SUB INP/OBS CARE MIN
--- NOTE | 2025-06-23 07:58 | Hospitalist Progress Note ---
Date of Service June 23, 2025 Assessment & Plan (1) Dementia with agitation: (2) Obstructive sleep apnea of adult: (3) HTN (hypertension): Plan Nixon is an 80yo male with progressing dementia with agitation among other chronic conditions, requires continued admission for stabilization and optimization on medication regimen while pending placement. #Dementia with agitation Has become aggressive over the past few years, it is no longer safe for to live at home with pt b/l UE non-violent restraints added as pt was reported to be pulling at his condom catheter and trying to leave his room when prior restraints had auto- discontinued - Head CT negative for acute pathology, only showing atrophy and chronic microvascular ischemic changes Defer MRI brain for now, pending workup with below labs ordered - Changed risperidone to 0.5mg BID, decreased freq of seroquel 25mg QID prn to TID prn as it has not been needed more than 1-2x daily in recent days - Continue donepezil 10mg daily and memantine 5mg BID Labs for workup of dementia: ordered vitamin B1, RPR, and Lyme; B12 at 520 and TSH 1.9 within past few months in [facility] chart - no overt delirogenic causes identified, and unfortunately current status seems c/w baseline decline promote safe environment, optimize daytime/nighttime status with minimal interventions or disruptions overnight - PT/OT to evaluate #AUDI / Hypokalemia, resolved #HTN, stable Discontinuing HCTZ and losartan he had a recent decrease in K+ to 3.0 and increase in creatinine to 1.45; currently 3.6 and 1.1, respectively Decreased K+ repletion to 20mEq qAM from BID, thus only 20mEq given today 06/23/25 and will stop after that until review of AM labs Ordered amlodipine 5mg qAM, as this is his most recent home dose per [facility] chart BMP AM #BEATRIZ - suspect will not be compliant with CPAP, defer at this time #prostate cancerDx in 2013, under surveillance. Continue dutasteride. VTE ppx: Lovenox Dispo: will need to be off PRNs for 24-48hrs for facility to accept; continue medical optimization Admission and Anticipated Discharge Date Admission Date: June 18, 2025 Supervising Physician Co-Signing Physician Notes I personally examined the patient and verified all [place] points of history and exam, discussed case, and agree with decision making with Dr Angelo with the following additions/exceptions: S-Pt seen in early evening and was calm, cooperative, confused-tells me he's getting ready to go upstairs and asks "when are you taking me out of here?" Says he has pain in his feet and improves with adjusting his heels. He moved hiw bowels today, is eating, and even walked the halls with the RN but then started getting a little agitated. Remains in wrist soft restraints as he was continuing to pull out medical equipment. O- Vitals Reviewed Gen: [AAOx1, NAD] HEENT: [anicteric sclerae, EOMI] CV: [RRR no mgr nl S1S2] Pulm: [CTAB no wcr] Abd: [+BS soft NT ND no masses or hernias] Ext: [no edema] Skin: [no rashes, warm/dry] Neuro: [full strength throughout] A/P: 80 yo male here with progressively worsening dementia with behavioral disturbances. Improving Increase Risperdal to 0.5mg po bid from 0.25mg po tid Continue seroquel prn but hopefully won't need this after today Wean off restraints if safe to do so dc HCTZ and KCl given recent hypokalemia nad AUDI in elderly pt with dementia and poor/unreliable po intake Jose Alicea was seen and evaluated at bedside this AM. Patient is alert and oriented to name and date of , looks to 1:1 when asked about location, saying "I don't know." Patient is in a pleasant mood at time of encounter, in b/l LE restraints but not agitated. Patient remains afebrile and hemodynamically stable. Physical Exam Physical Exam: General: patient resting comfortably, NAD, non-toxic in appearance, answers questions appropriately, occasionally looking to 1:1 for help with questions HEENT: NC/AT, EOM intact, anicteric sclerae, conjunctiva without injection, moist mucus membranes. CV: RRR, +s1/s2, no m/r/g Resp: equal air entry bilaterally, no rales/rhonchi/wheezes GI/Abd: +BS, soft, NT/ND Ext: warm, no clubbing/cyanosis or edema; has b/l LE restraints at time of exam Neuro: no focal deficits observed,speech intact, no facial droop, moving all extremities Results & Data Results & Data Vital Signs (Past 12 Hours) Vital Signs Temp Pulse Resp BP Pulse Ox O2 Del Method 06/23/25 07:20 Room Air 06/23/25 07:20 36.4 C L 62 20 128/83 90 Room Air 06/22/25 23:00 36.6 C 73 15 134/93 88 L Room Air Resident Activity Tracking Resident Involvement: Resident Care Provided Care Provided: Adult Hospital Medicine
--- NOTE | 2025-06-23 17:22 | Billing Data ---
Date of Service June 23, 2025 Coding Level of Care Code 61349 SUB INP/OBS CARE
[2025-06-23] MEDS: risperiDONE 0.25 MG TAB PO SCH (20:52)
--- NOTE | 2025-06-24 06:49 | Hospitalist Progress Note ---
Date of Service June 24, 2025 Assessment & Plan (1) Dementia with agitation: (2) Obstructive sleep apnea of adult: (3) HTN (hypertension): Plan Nixon is an 80yo male with progressing dementia with agitation, acute kidney injury with hypokalemia, and HTN, requires continued admission for stabilization and optimization on medication regimen while pending placement. Spoke with pt's Rosa on phone this evening, she was happy with the daily update. States she was here to visit with her daughter earlier and pt was reported to be on good behavior. #Dementia with agitation Has become aggressive over the past few years, it is no longer safe for to live at home with pt 4-point non-violent restraints added last night due to trying to hit staff overnight - Head CT negative for acute pathology, only showing atrophy and chronic microvascular ischemic changes Defer MRI brain for now, pending workup with below labs ordered - Continue risperidone 1mg BID, added standing Seroquel 25mg daily at 17:00, continue prn Seroquel 25mg TID as needed for agitation - Continue donepezil 10mg daily and memantine 5mg BID Labs for workup of dementia: pending vitamin B1, RPR, and Lyme; B12 at 520 and TSH 1.9 within past few months in [facility] chart - no overt delirogenic causes identified, and unfortunately current status seems c/w baseline decline promote safe environment, optimize daytime/nighttime status with minimal interventions or disruptions overnight - PT/OT #AUDI / Hypokalemia #HTN, stable Potassium back down to 3.3 and creatinine increased back to 1.55, thus given 20mEq KCl and 500cc NS bolus. Likely from poor po intake BMP AM Continue amlodipine 5mg qAM Discontinued home HCTZ and losartan #BEATRIZ - suspect will not be compliant with CPAP, defer at this time #prostate cancerDx in 2013, under surveillance. Continue dutasteride. VTE ppx: Lovenox Dispo: will need to be off PRNs for 24-48hrs for facility to accept; continue medical optimization Admission and Anticipated Discharge Date Admission Date: June 18, 2025 Supervising Physician Co-Signing Physician Notes I personally examined the patient and verified all [place] points of history and exam, discussed case, and agree with decision making with Dr Angelo with the following additions/exceptions: S-patient agitated and confused overnight and continues to be all throughout the day today. Remains in 4 point restraints. He continuously asks me to remove the strap from his right wrist. The one-to-one sitter at the bedside reports that he ate a little bit of breakfast but nothing for lunch so far. I asked the patient if he moved his bowels and he said yes but they sitter said he did not. He was not oriented to place or time but did allow me to examine him and was cooperative for that O- Vitals Reviewed Gen: AAOx1, NAD, remains restless with [address] HEENT: Anicteric sclerae, EOMI CV: RRR no mgr nl S1S2 Pulm: CTAB no wcr Abd: +BS soft NT ND no masses or hernias Ext: No edema Skin: No rashes, warm/dry Neuro: Full strength throughout A/P: 80 yo male here with progressively worsening dementia with behavioral disturbances. Continues to require 4 point restraints for safety for himself and others as he continues to have outbursts and violence towards caretakers Increase Risperda again to 1 mg po bid and continue as needed Seroquel-will ask nurse to give 25 mg of Seroquel x 1 now and early afternoon Wean off restraints if safe to do so AUDI/hypokalemia-dcd HCTZ, losartan, and KCl in this elderly pt with dementia and poor/unreliable po intake-give gentle IV fluids and oral potassium replacement Subjective Nixon was seen and evaluated at bedside this AM, in 4-point restraints. He appeared to be calm and in good spirits, but was uncooperative with all questioning, avoiding answering any orientation or comfort/pain questions. Remains afebrile with stable vital signs. Physical Exam Physical Exam: General: patient resting comfortably, NAD, non-toxic in appearance, non- cooperative with questioning HEENT: NC/AT, EOM intact, anicteric sclerae CV: pt deferred auscultation; appearing well-perfused Resp: pt deferred auscultation; appearing well-oxygenated, no respiratory distress GI/Abd: deferred; no distention observed Ext: in 4-point extremity restraints, no gross deformities or ecchymoses Neuro: no focal deficits observed,speech intact, no facial droop, moving all extremities Results & Data Results & Data Vital Signs (Past 12 Hours) Vital Signs Temp Pulse Resp BP Pulse Ox O2 Del Method 06/23/25 23:47 36.7 C 75 16 120/84 92 Room Air Resident Activity Tracking Resident Involvement: Resident Care Provided Care Provided: Adult Hospital Medicine
[2025-06-24] MEDS ORDERED: POTASSIUM CHLORIDE 20 MEQ/15 ML UDC PO SCH (09:00)
[2025-06-24 10:59] LABS: Anion Gap 10.0 (3-11); Blood Urea Nitrogen 48.0 mg/dl (6-23); Calcium 9.4 mg/dl (8.6-10.3); Carbon Dioxide 25.0 mmol/L (21-32); Chloride 104.0 mmol/L (98-107); Creatinine Clr Calc Pharmacy 36.7 ml/min; Glucose 114.0 mg/dl (70-99(Fasting)); Potassium 3.3 mmol/L (3.5-5.1); Sodium 139.0 mmol/L (136-145)
[2025-06-24] MEDS: POTASSIUM CHLORIDE CRTAB 20 MEQ TABCR PO STA (13:25)
[2025-06-24] MEDS: SODIUM CHLORIDE 0.9% 500 ML IV ONE (13:25)
--- NOTE | 2025-06-24 17:02 | Billing Data ---
Date of Service June 24, 2025 Coding Level of Care Code 31376 SUB INP/OBS CARE
--- NOTE | 2025-06-25 07:07 | Hospitalist Progress Note ---
Date of Service June 25, 2025 Assessment & Plan (1) Dementia with agitation: (2) Obstructive sleep apnea of adult: (3) HTN (hypertension): Plan Nixon is an 80yo male with progressing dementia with agitation, acute kidney injury with hypokalemia, and HTN, requires continued admission for stabilization and optimization on medication regimen while pending placement. and daughter were present, helped Joce feel more comfortable and he was amenable to ambulating, however still becoming agitated when hospital staff try to intervene including helping him to the bathroom. Pending placement. #Dementia with agitation Has become aggressive over the past few years, it is no longer safe for to live at home with pt 4-point non-violent restraints added again due to aggression - Continue risperidone 1mg BID, consider increasing Seroquel to 50mg daily at 17:00, continue prn Seroquel 25mg TID as needed for agitation - Continue donepezil 10mg daily and memantine 5mg BID Labs for workup of dementia: pending vitamin B1, RPR, and Lyme; B12 at 520 and TSH 1.9 within past few months in [facility] chart - Head CT negative for acute pathology, only showing atrophy and chronic microvascular ischemic changes Defer MRI brain for now, pending workup with below labs ordered - no overt delirogenic causes identified, and unfortunately current status seems c/w baseline decline promote safe environment, optimize daytime/nighttime status with minimal int erventions or disruptions overnight - PT/OT #AUDI / Hypokalemia #HTN, stable Potassium improved to 3.9, creatinine improved to 1.29 BMP AM Continue amlodipine 5mg qAM #BEATRIZ - suspect will not be compliant with CPAP, defer at this time #prostate cancerDx in 2013, under surveillance. Continue dutasteride. VTE ppx: Lovenox Dispo: will need to be off PRNs for 24-48hrs for facility to accept; continue medical optimization Admission and Anticipated Discharge Date Admission Date: June 18, 2025 Supervising Physician Co-Signing Physician Notes I personally examined the patient and verified all [place] points of history and exam, discussed case, and agree with decision making with Dr Angelo with the following additions/exceptions: S-Continues to be agitated, difficult to redirect. Continuously trying to run out of the room, with door shut, with 1:1 sitter. O- Vitals Reviewed Gen: AAOx1, NAD HEENT: Anicteric sclerae, EOMI CV: RRR no mgr nl S1S2 Pulm: CTAB no wcr Skin: No rashes, warm/dry A/P: 80 yo male here with progressively worsening dementia with behavioral disturbances. Continues to require 4 point restraints for safety for himself and others as he continues to have outbursts and violence towards caretakers COntinue increased Risperdal to 1 mg po bid and continue as needed Seroquel and scheduled Seroquel-increase to 50mg po q1700 Wean off restraints if safe to do so AUDI/hypokalemia-dcd HCTZ, losartan, and KCl in this elderly pt with dementia and poor/unreliable po intake-give gentle IV fluids and oral potassium replacement Jose Alicea was seen and evaluated at bedside this afternoon, and daughter present. He appeared to be calm and in good spirits, but was still uncooperative with my questioning, avoiding answering any orientation or comfort/pain questions. He successfully ambulated up and down the hooper with assistance of family. Remains afebrile with stable vital signs. Results & Data Results & Data Vital Signs (Past 12 Hours) Vital Signs Temp Pulse Resp BP Pulse Ox O2 Del Method 06/24/25 23:45 36.5 C 82 16 128/77 93 Room Air Resident Activity Tracking Resident Involvement: Resident Care Provided Care Provided: Adult Hospital Medicine
[2025-06-25 07:20] LABS: Anion Gap 8.0 (3-11); Blood Urea Nitrogen 48.0 mg/dl (6-23); Calcium 9.1 mg/dl (8.6-10.3); Carbon Dioxide 26.0 mmol/L (21-32); Chloride 106.0 mmol/L (98-107); Creatinine Clr Calc Pharmacy 44.1 ml/min; Glucose 116.0 mg/dl (70-99(Fasting)); Magnesium 1.9 mg/dl (1.7-2.4); Potassium 3.9 mmol/L (3.5-5.1); Sodium 140.0 mmol/L (136-145)
--- NOTE | 2025-06-26 00:26 | Billing Data ---
Date of Service June 25, 2025 Coding Level of Care Code 06236 SUB INP/OBS CARE
[2025-06-26 08:03] LABS: Anion Gap 9.0 (3-11); Blood Urea Nitrogen 37.0 mg/dl (6-23); Calcium 9.0 mg/dl (8.6-10.3); Carbon Dioxide 25.0 mmol/L (21-32); Chloride 105.0 mmol/L (98-107); Creatinine Clr Calc Pharmacy 58.7 ml/min; Glucose 110.0 mg/dl (70-99(Fasting)); Potassium 3.1 mmol/L (3.5-5.1); Sodium 139.0 mmol/L (136-145)
--- NOTE | 2025-06-26 10:23 | Hospitalist Progress Note ---
Date of Service June 26, 2025 Assessment & Plan (1) Dementia with agitation: (2) Obstructive sleep apnea of adult: (3) HTN (hypertension): Plan Nioxn is an 80yo male with progressing dementia with agitation, acute kidney injury with hypokalemia, and HTN, requires continued admission for stabilization and optimization on medication regimen while pending placement. Still requiring PRNs and 4-point restraints despite current psych med regimen, psychiatry recommending switching antipsych regimen to abilify vs zyprexa. Pending placement. #Dementia with agitation Has become aggressive over the past few years, it is no longer safe for to live at home with pt 4-point non-violent restraints again renewed due to tendency for aggression with hospital staff Consulted psychiatry, appreciate recs: recommended to switch antipsychotics to abilify vs zyprexa, decided ultimately to try zyprexa 2.5mg po qAM and 5mg qHS, and Zyprexa IM prn severe agitation (dc Seroquel) - Continue donepezil 10mg daily and memantine 5mg BID but consider stopping Labs for workup of dementia: pending vitamin B1; RPR and Lyme are negative; B12 at 520 and TSH 1.9 within past few months in [facility] chart Head CT negative for acute pathology, only showing atrophy and chronic microvascular ischemic changes Defer MRI brain for now, pending workup with below labs ordered - Blinds were shut this AM when it was already bright out- reinforced to staff to have room well-lit with windows open during the day; otherwise no overt delirogenic causes identified, and unfortunately current status seems c/w baseline decline Promote safe environment, optimize daytime/nighttime status with minimal interventions or disruptions overnight - PT/OT when able #AUDI / Hypokalemia #HTN, stable Potassium down to 3.1, however creatinine improved to 0.97 Ordered KCl 20mEq TID for today BMP AM Continue amlodipine 5mg qAM #BEATRIZ - suspect will not be compliant with CPAP, defer at this time #prostate cancerDx in 2013, under surveillance. Continue dutasteride. VTE ppx: Lovenox Dispo: will need to be off PRNs for 24-48hrs for facility to accept; continue medical optimization Admission and Anticipated Discharge Date Admission Date: June 18, 2025 Supervising Physician Co-Signing Physician Notes I personally examined the patient and verified all [place] points of history and exam, discussed case, and agree with decision making with Dr Angelo with the following additions/exceptions: S-Remains in 4 point soft restraints for violent behavior however seems much more pleasant and cooperative this evening. Smiles at me. When asked if he moved his bowels today, he says "It's cold outside." O- Vitals Reviewed Gen: AAOx1, NAD HEENT: Anicteric sclerae, EOMI CV: RRR no mgr nl S1S2 Pulm: CTAB no wcr Skin: No rashes, warm/dry A/P: 80 yo male here with progressively worsening dementia with behavioral disturbances. Continues to require 4 point restraints for safety for himself and others as he continues to have outbursts and violence towards caretakers Risperdal and seroquel not effective Start Zyprexa 2.5mg/5mg bid and give IM prn Wean off restraints if safe to do so AUDI/hypokalemia-dcd HCTZ, losartan in this elderly pt with dementia and poor/unreliable po intake-AUDI resolved, now with hypoklameia-replace KCL Subjective Nixon was seen and evaluated at bedside this AM, resting in bed in 4-point restraints, appearing calm. Did not appropriately respond to orientation questioning, but was amenable to opening the blinds when asked if this was okay. Reportedly didn't eat much of breakfast, stated he wasn't very hungry. Remains afebrile with stable vital signs. Physical Exam Physical Exam: General: patient resting comfortably, NAD, non-toxic in appearance, slightly more cooperative with questioning though unable to gauge orientation HEENT: NC/AT, EOM intact, anicteric sclerae CV: pt deferred auscultation; appearing well-perfused Resp: pt deferred auscultation; appearing well-oxygenated, no respiratory distress GI/Abd: deferred; no distention observed Ext: in 4-point extremity restraints, no gross deformities or ecchymoses Neuro: no focal deficits observed,speech intact, no facial droop, moving all extremities Results & Data Results & Data Vital Signs (Past 12 Hours) Vital Signs Temp Pulse Resp BP Pulse Ox O2 Del Method 06/26/25 07:26 36.5 C 68 18 125/81 90 Room Air Resident Activity Tracking Resident Involvement: Resident Care Provided Care Provided: Adult Hospital Medicine
--- NOTE | 2025-06-26 11:58 | Psychiatric Consultation ---
Date of Consultation June 26, 2025 Impression / Recommendations Impression Diagnostically consistent with dementia with behavioral disturbance and seems low suspicion at this point for any co-occurring delirium process. Unclear based on chart review what type of dementia he has, suspect Alzheimer's is top differential given his memantine and donepezil. Goal in dementia is to avoid medication management of behaviors if possible by maximizing non-pharmacologic strategies for behavioral management. However, given worsening agitation/aggression use of antipsychotics is warranted given risk/benefit profile favors treatment. Note all antipsychotic medications carry black box warning for increased risk of all-cause mortality in setting of dementia. Appears trial of increased risperidone has not shown any significant benefit. Seroquel dosing is low but no significant benefit from this so far either. Abilify has shown some potential, in small studies, to be favored for dementia with behavioral disturbance though it is less sedating which can make management of sundowning/overnight behaviors more challenging. Would also wonder about ongoing utility of donepezil and memantine given his advanced dementia. Sometimes these medications help with agitation but they also carry the potential for side effects like GI symptoms which can contribute to agitation especially given his limited ability to communicate physical concerns. Also wonder about his past hobbies and career, encourage distraction activities during the day that may interest him. Overall, I spent a total of 60 minutes with this case including review of chart records, review of labwork, review of EKG QTc, direct evaluation of the patient at bedside, counseling the patient, discussion of the patient with the hospitalist provider, discussion with the psychiatric liason during clinical rounds and documentation in the electronic health record. 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 -Limited data but sometimes clonidine 0.1mg TD patch can be helpful in lessening agitation -Optimize pain management/evaluate for any potential sources of pain or physical discomfort that could be contributing to agitation -Ensure he's being offered opportunities to ambulate or walk in the halls once agitation lessens to the point to safely allow for this -Explore past hobbies or interests to help with providing distraction activities/ways to keep him occupied during the day -For behavioral emergency: olanzapine 2.5 or 5 mg IM x 1 (DO NOT exceed 10mg via IM sources per 24 hours, check EKG if IM dose required, NEVER co-administer with IM or IV benzodiazepines). -Agree with plan for memory care/[facility] placement Psych History Identifying Data Nixon Sarmiento is an 80-year-old male with past medical history of dementia with agitation, BEATRIZ, HTN, prostate cancer diagnosed in 2012 under surveillance admitted medically due to increased support needs. Psychiatry consulted for medication recommendations for agitation. Chief Complaint "Salvador saba ate some fat". History of Present Illness Joce was admitted due to dementia with increasing behavioral disturbance. Prior to admission was prescribed: -risperidone 0.25mg TID -sertraline 50mg daily -ativan 1mg TID prn for agitation -donepezil 10mg daily Over course of admission medications have been adjusted now taking: -risperidone 1mg BID po -Seroquel 25mg daily at 1700 and Seroquel 25mg TID po prn for agitation Has not required any recent IM medications Requires frequent soft restraints Taking his medications Today he is not oriented to person, place, situation, month or year. 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 Cannot recall any childhood memories. Doesn't seem to remember that he's . Allergies Allergy/AdvReac Type Severity Reaction Status Date / Time Penicillins Allergy Unknown ANAPHYLAXIS Verified 12/22/24 08:05 Home Medications Medication Instructions Recorded Confirmed Type hydrochlorothiazide 12.5 mg tablet 12.5 mg PO DAILY 11/21/19 06/18/25 History losartan 25 mg tablet 25 mg PO DAILY 11/21/19 06/18/25 History multivitamin (Daily Multi-Vitamin 1 tab PO DAILY 02/03/20 06/18/25 History tablet) cholecalciferol (vitamin D3) 50 2,000 unit PO DAILY 11/09/22 06/18/25 History mcg (2,000 unit) capsule donepezil 10 mg tablet 10 mg PO DAILY 11/09/22 06/18/25 History ibuprofen 200 mg tablet 200 mg PO Q6H PRN Pain 11/09/22 06/18/25 History dutasteride 0.5 mg capsule 0.5 mg PO DAILY #90 caps 03/20/23 06/18/25 Rx memantine 5 mg tablet 5 mg PO BID 11/29/23 06/18/25 History sertraline 50 mg tablet 50 mg PO DAILY 11/29/23 06/18/25 History lorazepam 1 mg tablet 1 mg PO TID PRN anxiety/agitation 06/18/25 06/18/25 History risperidone 0.25 mg tablet 0.25 mg PO TID 06/18/25 06/18/25 History Patient History Medical History Severe sepsis with acute organ dysfunction Sepsis Acute respiratory failure Urosepsis (10/12/13) Surgical History History of nasal surgery History of hemorrhoidectomy History of hand surgery Family History Other Diabetes Hypertension Prostate cancer Social History Smoking Status: Unknown if ever smoked Tobacco Type: Declines Hx Alcohol Use: No (unable to answer) Hx Substance Use: No (unable to answer) Preferred Language: Latvian Communication Ability: Impaired Garnett Feeder Required: No Beliefs That Will Affect Care: None Current Living Situation: Spouse current occupational status: retired Feels Safe at Home: Yes Assistive Devices: None Assistive Devices Comment: Glasses on patient, patient unable to answer if other devices Physical Exam Vital Signs (Past 24 Hours): Last Vital Signs Temp 36.5 C 06/26/25 07:26 Pulse 68 06/26/25 07:26 Resp 18 06/26/25 07:26 BP 125/81 06/26/25 07:26 Pulse Ox 90 06/26/25 07:26 O2 Del Method Room Air 06/26/25 07:26 O2 Flow Rate 2 06/22/25 14:55 Results & Data (PSY) Medications Administered Acetaminophen (Acetaminophen 325 Mg Tab) 650 mg PO Q4H PRN PRN Reason: Pain or Fever Stop: 07/18/25 21:31 Last Admin: 06/19/25 21:36 Dose: 650 mg Documented By: SHALONDA Amlodipine Besylate (Amlodipine Besylate 5 Mg Tab) 5 mg PO QAM WICHO Stop: 07/24/25 08:59 Last Admin: 06/26/25 08:56 Dose: 5 mg Documented By: Admin: 06/25/25 11:39 Dose: 5 mg Documented By: Admin: 06/24/25 10:23 Dose: 5 mg Documented By: MACK Donepezil HCl (Donepezil Hcl 10 Mg Tab) 10 mg PO DAILY WICHO Stop: 07/19/25 08:59 Last Admin: 06/26/25 08:56 Dose: 10 mg Documented By: Admin: 06/25/25 11:38 Dose: 10 mg Documented By: Admin: 06/24/25 10:25 Dose: 10 mg Documented By: Admin: 06/23/25 09:50 Dose: 10 mg Documented By: Admin: 06/22/25 07:31 Dose: 10 mg Documented By: Admin: 06/21/25 08:03 Dose: 10 mg Documented By: Admin: 06/20/25 08:40 Dose: 10 mg Documented By: Admin: 06/19/25 08:16 Dose: 10 mg Documented By: HAYDEN Enoxaparin Sodium (Enoxaparin Inj 40 Mg/0.4 Ml Syr) 40 mg SQ Q24H WICHO Stop: 07/20/25 05:59 Last Admin: 06/26/25 06:15 Dose: 40 mg Documented By: Admin: 06/25/25 06:21 Dose: 40 mg Documented By: Admin: 06/24/25 05:43 Dose: 40 mg Documented By: edgar Admin: 06/23/25 06:19 Dose: 40 mg Documented By: Admin: 06/22/25 06:40 Dose: 40 mg Documented By: KMNelly Admin: 06/21/25 06:34 Dose: Not Given Documented By: KMNelly Admin: 06/20/25 06:14 Dose: Not Given Documented By: MLM Melatonin (Melatonin 3 Mg Tab) 3 mg PO HS PRN PRN Reason: Sleep Stop: 07/18/25 21:31 Last Admin: 06/25/25 21:14 Dose: 3 mg Documented By: Admin: 06/24/25 20:21 Dose: 3 mg Documented By: Admin: 06/23/25 20:54 Dose: 3 mg Documented By: edgar Admin: 06/22/25 20:33 Dose: 3 mg Documented By: ROSA MARIAJ Admin: 06/21/25 20:06 Dose: 3 mg Documented By: Admin: 06/20/25 21:19 Dose: 3 mg Documented By: Admin: 06/19/25 21:35 Dose: 3 mg Documented By: SHALONDA Memantine (Memantine Hcl 5 Mg Tab) 5 mg PO BID WICHO Stop: 07/18/25 21:31 Last Admin: 06/26/25 08:56 Dose: 5 mg Documented By: B Admin: 06/25/25 21:42 Dose: 5 mg Documented By: Admin: 06/25/25 11:38 Dose: 5 mg Documented By: Admin: 06/24/25 19:57 Dose: 5 mg Documented By: Admin: 06/24/25 10:21 Dose: 5 mg Documented By: Admin: 06/23/25 20:52 Dose: 5 mg Documented By: edgar Admin: 06/23/25 09:49 Dose: 5 mg Documented By: Admin: 06/22/25 20:33 Dose: 5 mg Documented By: Admin: 06/22/25 07:31 Dose: 5 mg Documented By: Admin: 06/21/25 20:08 Dose: 5 mg Documented By: KMNelly Admin: 06/21/25 08:02 Dose: 5 mg Documented By: Admin: 06/20/25 20:31 Dose: 5 mg Documented By: Admin: 06/20/25 08:40 Dose: 5 mg Documented By: Admin: 06/19/25 21:37 Dose: 5 mg Documented By: Admin: 06/19/25 08:16 Dose: 5 mg Documented By: Admin: 06/19/25 04:15 Dose: Not Given Documented By: Quetiapine Fumarate (Quetiapine Fumarate 25 Mg Tablet) 25 mg PO TID PRN PRN Reason: AGITATION Stop: 07/20/25 17:32 Last Admin: 06/25/25 21:13 Dose: 25 mg Documented By: Admin: 06/25/25 14:10 Dose: 25 mg Documented By: Admin: 06/24/25 20:21 Dose: 25 mg Documented By: Admin: 06/23/25 19:16 Dose: 25 mg Documented By: edgar Sertraline HCl (Sertraline Hcl 50 Mg Tablet) 50 mg PO DAILY WICHO Stop: 07/19/25 08:59 Last Admin: 06/26/25 08:56 Dose: 50 mg Documented By: Admin: 06/25/25 11:38 Dose: 50 mg Documented By: Admin: 06/24/25 10:25 Dose: 50 mg Documented By: Admin: 06/23/25 09:49 Dose: 50 mg Documented By: Admin: 06/22/25 07:31 Dose: 50 mg Documented By: Admin: 06/21/25 08:02 Dose: 50 mg Documented By: Admin: 06/20/25 08:40 Dose: 50 mg Documented By: Admin: 06/19/25 08:15 Dose: 50 mg Documented By: HAYDEN Coding Level of Care Code 95644 IN/OBS CONSULT LVL 4,60M Diagnoses 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
[2025-06-26] MEDS: POTASSIUM CHLORIDE CRTAB 20 MEQ TABCR PO SCH (14:51)
--- NOTE | 2025-06-26 19:43 | Billing Data ---
Date of Service June 26, 2025 Coding Level of Care Code 91474 SUB INP/OBS CARE
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
[2025-06-27] MEDS ORDERED: ARIPiprazole 5 MG TAB PO SCH (09:00)
[2025-06-27] MEDS: OLANZAPINE 2.5 MG TAB PO SCH (09:15)
--- NOTE | 2025-06-27 18:59 | Billing Data ---
Date of Service June 27, 2025 Coding Level of Care Code 42093 SUB INP/OBS CARE
[2025-06-27] MEDS: PSYLLIUM HUSK 4GM PACKET PO SCH (19:43)
[2025-06-27] MEDS: DOCUSATE SODIUM 100 MG CAP PO SCH (20:49)
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
[2025-06-28] MEDS: FINASTERIDE 5 MG TAB PO SCH (13:48)
[2025-06-28] MEDS: POLYETHYLENE (MIRALAX) 17 GM PACK PO SCH (14:11)
[2025-06-28] MEDS: REMOVE CLONIDINE PATCH SCH (14:12)
[2025-06-28] MEDS: CHECK CLONIDINE PATCH PLACEMENT SCH (15:23)
[2025-06-28] MEDS ORDERED: CLOTRIMAZOLE 1% CR 15 GM TUBE EXT PRN (15:52)
--- NOTE | 2025-06-28 17:18 | Billing Data ---
Date of Service June 28, 2025 Coding Level of Care Code 26211 SUB INP/OBS CARE
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
[2025-06-29] MEDS: SENNA 8.6 MG TAB PO SCH (16:41)
--- NOTE | 2025-06-29 17:04 | Billing Data ---
Date of Service June 29, 2025 Coding Level of Care Code 09804 SUB INP/OBS CARE
[2025-06-29] MEDS: OLANZapine 10 MG TAB PO SCH (20:42)
[2025-06-29] MEDS: POLYETHYLENE (MIRALAX) 17 GM PACK PO SCH (20:42)
--- NOTE | 2025-06-30 07:10 | Hospitalist Progress Note ---
Date of Service June 30, 2025 Assessment & Plan (1) Dementia with agitation: (2) HTN (hypertension): (3) Obstructive sleep apnea of adult: Plan Nixon is an 80yo male with progressing dementia with agitation, acute kidney injury with hypokalemia, and HTN, requires continued admission for stabilization and optimization on medication regimen while pending placement. Required 2-point b/l UE restraints due to aggression and agitation. Pending placement: waitlist at [place], no openings in foreseeable future. Also has a referral out to [facility], but they can't make a decision until pt is off restraints and 1:1 for 48 hours- did not require zyprexa IM prn since 2 evenings prior but has required restraints intermittently. Requires continued inpatient admission while pending placement which is contingent on medical optimization. #Dementia with agitation Has become aggressive over the past few years, it is no longer safe for to live at home with pt On 2-point b/l UE restraints due to harm to others Psychiatry consulted, appreciate recs: Advised by psych liaison to continue antipsychotic regimen based on IM availability for prn: zyprexa 10mg qHS, zyprexa 5mg qAM, keeping 2.5mg IM BID prn for aggression Increased clonidine patch to 0.2mg weekly as BP has been rising due to PO med refusal, some data in reducing agitation Continue to give patient puzzles and activities to keep hands and mind busy After discussing GI adverse effects of donepezil and memantine with Rosa, citing Dr. Owens's suggestion, pursuing trial of discontinuing these for now Labs for workup of dementia: vitamin B1 131 (WNL); RPR and Lyme are negative; B12 at 520 and TSH 1.9 within past few months in [facility] chart Head CT negative for acute pathology, only showing atrophy and chronic microvascular ischemic changes - Reinforced to staff to have room well-lit with windows open during the day; otherwise no overt delirogenic causes identified, and unfortunately current status seems c/w baseline decline Promote safe environment, optimize daytime/nighttime status with minimal interventions or disruptions overnight - PT/OT when able #Constipation Reportedly hasn't had a BM in about a week Continue Metamucil daily and Miralax BID, continue docusate BID Added dulcolax suppository daily prn for constipation starting 06/30/25 Consider escalating bowel regimen as GI discomfort combined with the inability to express it could be a significant cause of his agitation/aggression #AUDI / Hypokalemia #HTN, not at goal No longer obtaining daily labs, but prior hypokalemia has been repleted with KCl Continue amlodipine 5mg qAM, additionally on clonidine patch 0.2mg q7d Has been refusing oral meds, thus will give hydralazine IV for SBP >200 and/or DBP >110, or if symptomatic #Rash, lower chest (reported) Reported by nursing staff as it was noticed when showering pt Ordered clotrimazole 1% cream to apply after shower, starting with a small amount to ensue good tolerance #BEATRIZ - suspect will not be compliant with CPAP, defer at this time #prostate cancerDx in 2012, under surveillance. Finasteride in place of dutasteride while in hospital. VTE ppx: Lovenox Dispo: will need to be off PRNs for 24-48hrs for facility to accept; continue medical optimization on med floor Admission and Anticipated Discharge Date Admission Date: June 18, 2025 Supervising Physician Co-Signing Physician Notes I personally examined the patient and verified all [place] points of history and exam, discussed case, and agree with decision making with Dr Angelo No new issues or complaints. Sitting in bed comfortably. Denies any problems. Nursing notes other than refusing some medications this morning he has had no issues. Vitals noted, in general he is awake and alert pleasantly confused no distress. HEENT normocephalic atraumatic mucous membranes moist. Breathing unlabored no accessory muscle use good effort. Skin without rashes pallor or icterus. Neuro without focal deficits. Dementia with agitation. Continue current care. Continue reorientation and supportive care. Has not had IM Zyprexa since 06/28. Otherwise as above, pending placement. Subjective Seen and evaluated at bedside this AM, lying in bed in b/l arm restraints, legs free. Continues to be agitated and uncooperative with staff, refused breakfast as well as PO medications this AM. Denies any chest pain, SOB, abdominal pain. Still reported to have no had any BMs in the past ~7 days, now despite metamucil and miralax. Physical Exam Physical Exam: General: patient resting comfortably in b/l UE restraints in bed, alert but unwilling to answer orientation questions HEENT: NC/AT, EOM intact, anicteric sclerae CV: appearing well perfused; 2+ radial pulses b/l Resp: regular respiratory rate with no audible breathing, no respiratory distress GI/Abd: no obvious abdominal distention Skin: examination of chest deferred, no rashes or other lesions observed on exposed skin Ext: 2-point restraints b/l UE, extremities without gross deformities, no ecchymosis or skin tears observed Neuro: no focal deficits observed,speech intact, no facial droop, moving all extremities Results & Data Results & Data Vital Signs (Past 12 Hours) Vital Signs Temp Pulse Resp BP Pulse Ox O2 Del Method 06/29/25 19:22 36.7 C 68 18 154/98 H 94 Room Air Resident Activity Tracking Resident Involvement: Resident Care Provided Care Provided: Adult Hospital Medicine
--- NOTE | 2025-06-30 13:35 | Billing Data ---
Date of Service June 30, 2025 Coding Level of Care Code 95203 SUB INP/OBS CARE
[2025-06-30] MEDS: REMOVE CLONIDINE PATCH SCH (14:06)
[2025-06-30] MEDS: CHECK CLONIDINE PATCH PLACEMENT SCH (16:19)
--- NOTE | 2025-07-01 06:37 | Hospitalist Progress Note ---
Date of Service July 01, 2025 Assessment & Plan (1) Dementia with agitation: (2) HTN (hypertension): (3) Obstructive sleep apnea of adult: Plan Nixon is an 80yo male with progressing dementia with agitation, acute kidney injury with hypokalemia, and HTN, requires continued admission for stabilization and optimization on medication regimen while pending placement. Required 2-point b/l UE restraints due to aggression and agitation. Pending placement: waitlist at [facility], no openings in foreseeable future. Also has a referral out to [facility], but they can't make a decision until pt is off restraints and 1:1 for 48 hours- did not require zyprexa IM prn since 2 evenings prior but has required restraints intermittently. Requires continued inpatient admission while pending placement which is contingent on medical optimization. #Dementia with agitation Has become aggressive over the past few years, it is no longer safe for to live at home with pt On 2-point b/l UE restraints due to harm to others Psychiatry consulted, appreciate recs: Advised by psych liaison to continue antipsychotic regimen based on IM availability for prn: zyprexa 10mg qHS, zyprexa 5mg qAM, keeping 2.5mg IM BID prn for aggression Continue 0.2mg clonidine patch weekly, however now taken PO amlodipine- if BP <90/60 will scale back to clonidine 0.1mg patch Continue to give patient puzzles and activities to keep hands and mind busy Pursuing trial of discontinuing donepezil and memantine for now, after discussing GI adverse effects with Rosa, citing Dr. Owens's suggestion Labs for workup of dementia: vitamin B1 131 (WNL); RPR and Lyme are negative; B12 at 520 and TSH 1.9 within past few months in [facility] chart Head CT negative for acute pathology, only showing atrophy and chronic microvascular ischemic changes - Reinforced to staff to have room well-lit with windows open during the day; otherwise no overt delirogenic causes identified, and unfortunately current status seems c/w baseline decline Promote safe environment, optimize daytime/nighttime status with minimal interventions or disruptions overnight - PT/OT when able #Constipation Reportedly hasn't had a BM in about a week Continue Metamucil daily and Miralax BID, continue docusate BID Will reinforce importance of dulcolax suppository for constipation Abdominal exam doesn't suggest severe stool burden, but continue with the above as his PO intake has been non-negligible over the past week #AUDI / Hypokalemia #HTN, not at goal No longer obtaining daily labs, but prior hypokalemia has been repleted with KCl Continue amlodipine 5mg qAM, additionally on clonidine patch 0.2mg q7d Give hydralazine IV for SBP >200 and/or DBP >110, or if symptomatic #Rash, lower chest (reported) Reported by nursing staff as it was noticed when showering pt Ordered clotrimazole 1% cream to apply after shower, starting with a small amount to ensue good tolerance #BEATRIZ - suspect will not be compliant with CPAP, defer at this time #prostate cancerDx in 2012, under surveillance. Finasteride in place of dutasteride while in hospital. VTE ppx: Lovenox Dispo: will need to be off PRNs for 24-48hrs for facility to accept; continue medical optimization on med floor Admission and Anticipated Discharge Date Admission Date: June 18, 2025 Supervising Physician Co-Signing Physician Notes I personally examined the patient and verified all [place] points of history and exam, discussed case, and agree with decision making with Dr Angelo No new issues or complaints. Sitting in bed comfortably. sleeping when I see him. Vitals noted, in general he is awake and alert pleasantly confused no distress. HEENT normocephalic atraumatic mucous membranes moist. Breathing unlabored no accessory muscle use good effort. Skin without rashes pallor or icterus. Neuro without focal deficits. Dementia with agitation. Continue current care. Continue reorientation and supportive care. Has not had IM Zyprexa since 06/28. Pending placement Otherwise as above, pending placement. Subjective Seen and evaluated at bedside this AM, lying in bed in b/l arm restraints, legs free. Appearing calm and pleasant this AM, was amenable to most questioning and exam. Has been taking his morning meds, an improvement from day prior. Denies any chest pain, SOB, abdominal pain. Still reported to have no had any BMs in the past ~7 days, taking stool softeners now except docusate. Physical Exam Physical Exam: General: patient resting comfortably in b/l UE restraints in bed, alert, oriented to HEENT: NC/AT, EOM intact, anicteric sclerae CV: RRR, +s1/s2, no m/r/g Resp: clear to auscultation b/l, no w/r/R GI/Abd: normoactive BS, abdomen soft, nontender to palpation, no significant abdominal distention Ext: 2-point restraints b/l UE, extremities without gross deformities, no ecchymosis or skin tears observed Neuro: no focal deficits observed,speech intact, no facial droop, moving all extremities Results & Data Results & Data Vital Signs (Past 12 Hours) Vital Signs Temp Pulse Resp BP Pulse Ox O2 Del Method 06/30/25 22:28 36.7 C 59 L 16 132/91 92 Room Air Resident Activity Tracking Resident Involvement: Resident Care Provided Care Provided: Adult Hospital Medicine
--- NOTE | 2025-07-01 13:34 | Billing Data ---
Date of Service July 01, 2025 Coding Level of Care Code 12348 SUB INP/OBS CARE
--- NOTE | 2025-07-02 08:09 | Hospitalist Progress Note ---
Date of Service July 02, 2025 Assessment & Plan (1) Dementia with agitation: (2) HTN (hypertension): (3) Obstructive sleep apnea of adult: Plan Nixon is an 80yo male with progressing dementia with agitation, acute kidney injury with hypokalemia, and HTN, requires continued admission for stabilization and optimization on medication regimen while pending placement. Required 2-point b/l UE restraints due to aggression and agitation. Pending placement: waitlist at [place], no openings in foreseeable future. Also has a referral out to [facility], but they can't make a decision until pt is off restraints and 1:1 for 48 hours- did not require zyprexa IM prn since 3 evenings prior but has required restraints intermittently. Requires continued inpatient admission while pending placement which is contingent on medical optimization. #Dementia with agitation Has become aggressive over the past few years, it is no longer safe for to live at home with pt On 2-point b/l UE restraints due to harm to others Psychiatry consulted, appreciate recs: Advised by psych liaison to continue antipsychotic regimen based on IM availability for prn: zyprexa 10mg qHS, zyprexa 5mg qAM, keeping 2.5mg IM BID prn for aggression Continue clonidine patch weekly, however now taken PO amlodipine- if BP <90/60 or symptomatic will scale back to clonidine 0.1mg patch Continue to give patient puzzles and activities to keep hands and mind busy Pursuing trial of discontinuing donepezil and memantine for now, after discussing GI adverse effects with Rosa, citing Dr. Owens's suggestion Labs for workup of dementia: vitamin B1 131 (WNL); RPR and Lyme are negative; B12 at 520 and TSH 1.9 within past few months in [facility] chart Head CT negative for acute pathology, only showing atrophy and chronic microvascular ischemic changes - Reinforced to staff to have room well-lit with windows open during the day; otherwise no overt delirogenic causes identified, and unfortunately current status seems c/w baseline decline Promote safe environment, optimize daytime/nighttime status with minimal interventions or disruptions overnight - PT/OT when able #Constipation Reportedly had a large BM the evening prior Changed current bowel regimen to prn; discontinue dulcolax If no BM within the next 2 days, consider making Miralax 17g scheduled for every other day Continue to encourage good oral intake #AUDI / Hypokalemia #HTN, not at goal No longer obtaining daily labs, but prior hypokalemia has been repleted with KCl Continue amlodipine 5mg qAM, additionally on clonidine patch 0.2mg q7d Give hydralazine IV for SBP >200 and/or DBP >110, or if symptomatic #Rash, lower chest (reported) Reported by nursing staff as it was noticed when showering pt Ordered clotrimazole 1% cream to apply after shower, starting with a small amount to ensue good tolerance #BEATRIZ - suspect will not be compliant with CPAP, defer at this time #prostate cancerDx in 2013, under surveillance. Finasteride in place of dutasteride while in hospital. VTE ppx: Lovenox Dispo: will need to be off PRNs for 24-48hrs for facility to accept; continue medical optimization on med floor Admission and Anticipated Discharge Date Admission Date: June 18, 2025 Supervising Physician Co-Signing Physician Notes I personally examined the patient and verified all [place] points of history and exam, discussed case, and agree with decision making with Dr Angelo Has been a bit more restless and agitated today. Updated .. Vitals noted, in general he is awake and alert pleasantly confused no distress. HEENT normocephalic atraumatic mucous membranes moist. Breathing unlabored no accessory muscle use good effort. Skin without rashes pallor or icterus. Neuro without focal deficits. Dementia with agitation. Continue current care. Continue reorientation and supportive care. Has not had IM Zyprexa since 06/28. Pending placement. Updated . Otherwise as above, pending placement. Subjective Seen and evaluated at bedside this AM, lying in bed in b/l arm restraints, legs free. Appearing calm and pleasant this AM, was amenable to most questioning and exam. Has been taking his morning meds, an improvement from day prior. Reportedly did have a large BM in the past 24h, but when pt was asked about it he got angry and said "it was someone else" Denies any chest pain, SOB, abdominal pain. Physical Exam Physical Exam: General: patient resting comfortably in b/l UE restraints in bed, alert, not answering orientation questions appropriately HEENT: NC/AT, EOM intact, anicteric sclerae CV: visual- appearing well-perfused Resp: visual- breathing comfortably and quietly, no respiratory distress GI/Abd: no abdominal distention observed Ext: 2-point restraints b/l UE, extremities without gross deformities, no ecchymosis or skin tears observed Neuro: no focal deficits observed,speech intact, no facial droop, moving all extremities Results & Data Results & Data Vital Signs (Past 12 Hours) Vital Signs Temp Pulse Resp BP Pulse Ox O2 Del Method 07/01/25 22:48 36.0 C L 62 18 134/84 93 Room Air Resident Activity Tracking Resident Involvement: Resident Care Provided Care Provided: Adult Hospital Medicine
--- NOTE | 2025-07-02 12:57 | Billing Data ---
Date of Service July 02, 2025 Coding Level of Care Code 83391 SUB INP/OBS CARE
--- NOTE | 2025-07-03 05:23 | Electrocardiogram Report ---
Test Reason : Blood Pressure : */* mmHG Vent. Rate : 82 BPM Atrial Rate : 82 BPM P-R Int : 174 ms QRS Dur : 88 ms QT Int : 372 ms P-R-T Axes : 44 21 85 degrees QTcB Int : 434 ms Normal sinus rhythm Nonspecific ST and T wave abnormality Abnormal ECG When compared with ECG of 18-Jun-2025 17:56, No significant change was found Confirmed by Brennon Duggan ([id number]) on 07/03/2025 5:23:41 AM Referred By: REFERRED SELF Confirmed By: Brennon Duggan
--- NOTE | 2025-07-03 07:10 | Hospitalist Progress Note ---
Date of Service July 03, 2025 Assessment & Plan (1) Dementia with agitation: (2) HTN (hypertension): (3) Obstructive sleep apnea of adult: Plan Nixon is an 80yo male with progressing dementia with agitation, acute kidney injury with hypokalemia, and HTN, requires continued admission for stabilization and optimization on medication regimen while pending placement. Required 2-point b/l UE restraints due to aggression and agitation. Pending placement: waitlist at [place], no openings in foreseeable future. Also has a referral out to [facility], but they can't make a decision until pt is off restraints and 1:1 for 48 hours- did not require zyprexa IM prn since 3 evenings prior but has required restraints intermittently. Requires continued inpatient admission while pending placement which is contingent on medical optimization. #Dementia with agitation Has become aggressive over the past few years, it is no longer safe for to live at home with pt On 2-point b/l UE restraints due to harm to others Psychiatry consulted, appreciate recs: Advised by psych liaison to continue antipsychotic regimen based on IM availability for prn: zyprexa 10mg qHS, zyprexa 5mg qAM, keeping 2.5mg IM BID prn for aggression Continue clonidine patch weekly, however now taken PO amlodipine- if BP <90/60 or symptomatic will scale back to clonidine 0.1mg patch Continue to give patient puzzles and activities to keep hands and mind busy Pursuing trial of discontinuing donepezil and memantine for now, after discussing GI adverse effects with Rosa, citing Dr. Owens's suggestion Labs for workup of dementia: vitamin B1 131 (WNL); RPR and Lyme are negative; B12 at 520 and TSH 1.9 within past few months in P[facility] chart Head CT negative for acute pathology, only showing atrophy and chronic microvascular ischemic changes - Reinforced to staff to have room well-lit with windows open during the day; otherwise no overt delirogenic causes identified, and unfortunately current status seems c/w baseline decline Promote safe environment, optimize daytime/nighttime status with minimal interventions or disruptions overnight - PT/OT when able #Constipation Reportedly had a large BM the evening prior Changed current bowel regimen to prn; discontinue dulcolax If no BM within the next 2 days, consider making Miralax 17g scheduled for every other day Continue to encourage good oral intake #AUDI / Hypokalemia #HTN, not at goal No longer obtaining daily labs, but prior hypokalemia has been repleted with KCl Continue amlodipine 5mg qAM, additionally on clonidine patch 0.2mg q7d Give hydralazine IV for SBP >200 and/or DBP >110, or if symptomatic #Rash, lower chest (reported) Reported by nursing staff as it was noticed when showering pt Ordered clotrimazole 1% cream to apply after shower, starting with a small amount to ensue good tolerance #BEATRIZ - suspect will not be compliant with CPAP, defer at this time #prostate cancerDx in 2013, under surveillance. Finasteride in place of dutasteride while in hospital. VTE ppx: Lovenox Dispo: will need to be off PRNs for 24-48hrs for facility to accept; continue medical optimization on med floor Admission and Anticipated Discharge Date Admission Date: June 18, 2025 Supervising Physician Co-Signing Physician Notes I personally examined the patient and verified all [place] points of history and exam, discussed case, and agree with decision making with Dr Angelo no issues today.. Vitals noted, Resting in bed, no distress. HEENT normocephalic atraumatic mucous membranes moist. Breathing unlabored no accessory muscle use good effort. Skin without rashes pallor or icterus. Neuro without focal deficits. Dementia with agitation. Continue current care. Continue reorientation and supportive care. Has not had IM Zyprexa since 06/28. Pending placement. agree with and appreciate psychiatry input. Otherwise as above, pending placement. Subjective Seen and evaluated at bedside this AM, lying in bed in b/l arm restraints, legs free. Appearing calm and pleasant this AM, was amenable to most questioning and exam. Has been taking his morning meds the past 2 days. Denies any chest pain, SOB, abdominal pain. Physical Exam Physical Exam: General: patient resting comfortably in b/l UE restraints in bed, alert, not answering orientation questions appropriately HEENT: NC/AT, EOM intact, anicteric sclerae CV: visual- appearing well-perfused Resp: visual- breathing comfortably and quietly, no respiratory distress GI/Abd: no abdominal distention observed Ext: 2-point restraints b/l UE, extremities without gross deformities, no ecchymosis or skin tears observed Neuro: no focal deficits observed,speech intact, no facial droop, moving all extremities Results & Data Results & Data Vital Signs (Past 12 Hours) Vital Signs Temp Pulse Resp BP Pulse Ox O2 Del Method 07/03/25 01:14 36.3 C L 51 L 18 111/73 91 Room Air Resident Activity Tracking Resident Involvement: Resident Care Provided Care Provided: Adult Hospital Medicine
[2025-07-03] MEDS: POLYETHYLENE (MIRALAX) 17 GM PACK PO SCH (07:13)
--- NOTE | 2025-07-03 13:15 | Psychiatric Progress Note ---
Date of Service July 03, 2025 Impression / Recommendations Impression Diagnostically consistent with dementia with behavioral disturbance and seems low suspicion at this point for any co-occurring delirium process. Unclear based on chart review what type of dementia he has, suspect Alzheimer's is top differential given his memantine and donepezil. Goal in dementia is to avoid medication management of behaviors if possible by maximizing non-pharmacologic strategies for behavioral management. However, given worsening agitation/aggression use of antipsychotics is warranted given risk/benefit profile favors treatment. Note all antipsychotic medications carry black box warning for increased risk of all-cause mortality in setting of dementia. The patient's behavioral disturbances were unresponsive to Risperdal and Seroquel. Improvements seen with olanzapine. There seems to be a pattern of behavioral disturbances occurring in opposition to boundaries set by staff.In this case, emergent medication can manage imminent danger to self or others but would do little to resolved the behavioral disturbances themselves. Outbursts of this type require a biopsychosocial focused intervention plan. Maintaining daily routines/structure as well as routine interventions may limit the frequency of these behavioral disturbances. The patient is also notably sleeping throughout the day with increased disturbances at night. Recommend opening the blinds in the morning and engaging the patient throughout the day to support/maintain the natural circadian rhythm and minimize disturbances resulting from sun-downing related disorientation. Abilify has shown some potential, in small studies, to be favored for dementia with behavioral disturbance though it is less sedating which can make management of sundowning/overnight behaviors more challenging. Also wonder about his past hobbies and career, encourage distraction activities during the day that may interest him. Overall, I spent a total of 45 minutes with this case including review of chart records, review of labwork, review of EKG QTc, direct evaluation of the patient at bedside, counseling the patient, discussion of the patient with the hospitalist provider, discussion with the psychiatric liason during clinical rounds and documentation in the electronic health record. 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 Recommend opening the blinds in the morning to support a healthy circadian rhythm and minimize disturbances resulting from sun-downing related disorientation. - Recommend switching to standing Melatonin 3 mg PO QHS for additional circadian support - Recommend orienting/preoccupying the pt with familiar things, pictures of his family/friends and staple items from his home - Recommend engaging the pt with activities reminiscent of his hobbies/careers/interests throughout the day to help minimize outbursts and encourage remaining active during the day instead of night. -Ensure he's being offered opportunities to ambulate or walk in the halls once agitation lessens to the point to safely allow for this Establish situational awareness precautions (consider closing all the doors except for the patient's during his walks. If effective continue this approach whenever able) May consider switching from Olanzapine to a daily morning dose of Abilify this may minimize daytime sedation and add further support a healthy circadian rhythm as Abilify is known to be more activating. Avoid use of Abilify in the evening. -For behavioral emergency: olanzapine 2.5 or 5 mg IM x 1 (DO NOT exceed 10mg via IM sources per 24 hours, check EKG if IM dose required, NEVER co-administer with IM or IV benzodiazepines). -Continue 1-on-1 prn given agitation per discretion of hospitalist team -Limited data but sometimes clonidine 0.1mg TD patch can be helpful in lessening agitation -Optimize pain management/evaluate for any potential sources of pain or physical discomfort that could be contributing to agitation -Agree with plan for memory care/skilled nursing placement Interval History Identifying Information Nixon Sarmiento is an 80-year-old male with past medical history of dementia with agitation, BEATRIZ, HTN, prostate cancer diagnosed in 2012 under surveillance admitted medically due to increased support needs. Psychiatry consulted for medication recommendations for agitation. Chief Complaint Not able to assess Subjective Subjective The psychiatric treatment team attempted to see the patient this morning. He was found asleep in his room with the blinds closed. Collateral information obtained from the assigned 1:1 observer. Per collateral the patient has been awake for only about 10 minutes in the past 4 hours. When awake he has been mostly calm with brief irritability/defiance when directed to take medications. He was more cooperative when reapproached a few minutes later. Physical Exam Vital Signs (Past 24 Hours) Last Vital Signs Temp 36.5 C 07/03/25 08:05 Pulse 54 L 07/03/25 08:05 Resp 18 07/03/25 08:05 BP 154/92 H 07/03/25 08:05 Pulse Ox 92 08/28/25 08:05 O2 Del Method Room Air 07/03/25 08:05 O2 Flow Rate 2 06/22/25 14:55 Results & Data ([facility]) Current Inpatient Medications Current Inpatient Medications: Current Inpatient Medications Acetaminophen (Acetaminophen 325 Mg Tab) 650 mg PO Q4H PRN PRN Reason: Pain or Fever Stop: 07/18/25 21:31 Last Admin: 07/02/25 22:03 Dose: 650 mg Amlodipine Besylate (Amlodipine Besylate 5 Mg Tab) 5 mg PO QAM [facility] Stop: 07/24/25 08:59 Last Admin: 07/03/25 09:01 Dose: 5 mg Bisacodyl (Bisacodyl 10 Mg Supp) 10 mg ME DAILY PRN PRN Reason: Constipation Stop: 07/31/25 09:44 Clonidine HCl (Clonidine Hcl 0.2 Mg/24 Hr Transderm Sys) 1 patch TD Q7D [facility] Stop: 07/30/25 12:59 Last Admin: 06/30/25 14:06 Dose: 1 patch Clotrimazole (Clotrimazole 1% Cr 15 Gm Tube) 1 appln EXT DAILY PRN PRN Reason: Rash Stop: 07/28/25 15:51 Docusate Sodium (Docusate Sodium 100 Mg Cap) 100 mg PO DAILY PRN PRN Reason: Constipation Stop: 08/02/25 08:59 Enoxaparin Sodium (Enoxaparin Inj 40 Mg/0.4 Ml Syr) 40 mg SQ Q24H [facility] Stop: 07/20/25 05:59 Last Admin: 07/03/25 05:15 Dose: 40 mg Finasteride (Finasteride 5 Mg Tab) 5 mg PO QAM [facility] Stop: 07/28/25 11:44 Last Admin: 07/03/25 09:01 Dose: 5 mg Hydralazine HCl (Hydralazine Hcl 20 Mg/Ml Vial) 5 mg IV Q8H PRN PRN Reason: Hypertension Stop: 07/31/25 09:42 Ibuprofen (Ibuprofen 200 Mg Tab) 200 mg PO Q6H PRN PRN Reason: Pain Stop: 07/18/25 21:31 Melatonin (Melatonin 3 Mg Tab) 3 mg PO HS PRN PRN Reason: Sleep Stop: 07/18/25 21:31 Last Admin: 07/02/25 20:23 Dose: 3 mg Miscellaneous (Remove Clonidine Patch) 1 each N/A CQWK [facility] Stop: 07/30/25 12:59 Last Admin: 06/30/25 14:06 Dose: 1 each Miscellaneous (Check Clonidine Patch Placement) 1 each N/A QS [facility] Stop: 07/30/25 15:59 Last Admin: 07/03/25 08:58 Dose: 1 each Olanzapine (Olanzapine 10 Mg/2.1 Ml Sdv) 2.5 mg IM BID PRN PRN Reason: Agitation Stop: 07/26/25 20:59 Last Admin: 06/28/25 19:47 Dose: 2.5 mg Olanzapine (Olanzapine 10 Mg Tab) 10 mg PO HS [facility] Stop: 07/29/25 20:59 Last Admin: 07/02/25 20:23 Dose: 10 mg Olanzapine (Olanzapine 5 Mg Tablet) 5 mg PO QAM [facility] Stop: 07/30/25 08:59 Last Admin: 07/03/25 09:01 Dose: 5 mg Polyethylene Glycol (Polyethylene (Miralax) 17 Gm Pack) 17 gm PO Q2D [facility] Stop: 08/02/25 07:14 Last Admin: 07/03/25 07:13 Dose: Not Given Psyllium Hydrophilic Mucilloid (Psyllium Husk 4gm Packet) 4 gm PO QAM [facility] Stop: 07/27/25 18:59 Last Admin: 07/03/25 09:01 Dose: 4 gm Sennosides (Senna 8.6 Mg Tab) 8.6 mg PO QAM [facility] Stop: 07/29/25 15:44 Last Admin: 07/03/25 09:01 Dose: 8.6 mg Sertraline HCl (Sertraline Hcl 50 Mg Tablet) 50 mg PO DAILY [facility] Stop: 07/19/25 08:59 Last Admin: 07/03/25 09:01 Dose: 50 mg
--- NOTE | 2025-07-03 19:49 | Billing Data ---
Date of Service July 03, 2025 Coding Level of Care Code 64750 SUB INP/OBS CARE
[2025-07-03] MEDS: IBUPROFEN 200 MG TAB PO PRN (21:41)
--- NOTE | 2025-07-04 07:11 | Hospitalist Progress Note ---
Date of Service July 04, 2025 Assessment & Plan (1) Dementia with agitation: (2) HTN (hypertension): (3) Obstructive sleep apnea of adult: Plan Nixon is an 80yo male with progressing dementia with agitation, acute kidney injury with hypokalemia, and HTN, requires continued admission for stabilization and optimization on medication regimen while pending placement. Required 2-point b/l UE restraints due to aggression and agitation. Pending placement: waitlist at [place], no openings in foreseeable future. Also has a referral out to [facility], but they can't make a decision until pt is off restraints and 1:1 for 48 hours- did not require zyprexa IM prn since 3 evenings prior but has required restraints intermittently. Requires continued inpatient admission while pending placement which is contingent on medical optimization. #Dementia with agitation Has become aggressive over the past few years, it is no longer safe for to live at home with pt Off restraints as of this AM, calm and cooperate thus far Psychiatry consulted, appreciate recs: Advised by psych liaison to continue antipsychotic regimen based on IM availability for prn: zyprexa 10mg qHS, zyprexa 5mg qAM, keeping 2.5mg PO and IM BID prn for aggression (try PO first) Continue clonidine patch weekly, however now taken PO amlodipine- if BP <90/60 or symptomatic will scale back to clonidine 0.1mg patch Continue to give patient puzzles and activities to keep hands and mind busy Pursuing trial of discontinuing donepezil and memantine for now, after discussing GI adverse effects with Rosa, citing Dr. Owens's suggestion Labs for workup of dementia: vitamin B1 131 (WNL); RPR and Lyme are negative; B12 at 520 and TSH 1.9 within past few months in [facility] chart Head CT negative for acute pathology, only showing atrophy and chronic microvascular ischemic changes - Reinforced to staff to have room well-lit with windows open during the day; otherwise no overt delirogenic causes identified, and unfortunately current status seems c/w baseline decline Promote safe environment, optimize daytime/nighttime status with minimal interventions or disruptions overnight - PT/OT when able #Constipation Reportedly had a large BM 3 evenings ago Changed current bowel regimen to prn; discontinue dulcolax If no BM within the next 2 days, consider making Miralax 17g scheduled for every other day Continue to encourage good oral intake #AUDI / Hypokalemia #HTN, not at goal No longer obtaining daily labs, but prior hypokalemia has been repleted with KCl Continue amlodipine 5mg qAM, additionally on clonidine patch 0.2mg q7d Give hydralazine IV for SBP >200 and/or DBP >110, or if symptomatic #Rash, lower chest (reported) Reported by nursing staff as it was noticed when showering pt Ordered clotrimazole 1% cream to apply after shower, starting with a small amount to ensue good tolerance #BEATRIZ - suspect will not be compliant with CPAP, defer at this time #prostate cancerDx in 2013, under surveillance. Finasteride in place of dutasteride while in hospital. VTE ppx: Lovenox Dispo: will need to be off PRNs for 24-48hrs for facility to accept; continue medical optimization on med floor Admission and Anticipated Discharge Date Admission Date: June 18, 2025 Supervising Physician Co-Signing Physician Notes I personally examined the patient and verified all [place] points of history and exam, discussed case, and agree with decision making with Dr Angelo no issues today. Vitals noted, Sitting up in bed, pleasant, conversationally confused, no distress. HEENT normocephalic atraumatic mucous membranes moist. Breathing unlabored no accessory muscle use good effort. Skin without rashes pallor or icterus. Neuro without focal deficits. Dementia with agitation. Continue current care. Continue reorientation and supportive care. Has not had IM Zyprexa since 06/28. Pending placement. appreciate case management efforts. agree with and appreciate psychiatry in put. Otherwise as above, pending placement. Subjective Seen and evaluated at bedside this AM, sitting on edge of bed with all extremities free. Appearing calm and pleasant this AM, was amenable to most questioning and exam. Has been taking his morning meds the past 2 days. Last BM 2 days ago. Denies any chest pain, SOB, abdominal pain. Physical Exam Physical Exam: General: patient sitting comfortably and calmly in bed, alert, not answering lo entation questions appropriately HEENT: NC/AT, EOM intact, anicteric sclerae CV: RRR, +s1/s2, no m/r/g Resp: clear to auscultation b/, no w/r/R GI/Abd: normoactive bowel sounds, belly soft, nontender to palpation Ext: extremities unrestrained, without gross deformities, no ecchymosis or skin tears observed Neuro: no focal deficits observed,speech intact, no facial droop, moving all extremities Results & Data Results & Data Vital Signs (Past 12 Hours) Vital Signs Temp Pulse Resp BP Pulse Ox O2 Del Method 07/03/25 23:52 36.4 C L 61 16 138/93 92 Room Air Resident Activity Tracking Resident Involvement: Resident Care Provided Care Provided: Adult Hospital Medicine
[2025-07-04] MEDS: OLANZAPINE 2.5 MG TAB PO PRN (16:00)
--- NOTE | 2025-07-04 18:32 | Billing Data ---
Date of Service July 04, 2025 Coding Level of Care Code 90912 SUB INP/OBS CARE
--- NOTE | 2025-07-05 15:43 | Hospitalist Progress Note ---
Date of Service June 19, 2025 Assessment & Plan (1) Dementia with agitation: (2) HTN (hypertension): (3) Obstructive sleep apnea of adult: Plan Nixon is an 80yo male with progressing dementia with agitation, acute kidney injury with hypokalemia, and HTN, requires continued admission for stabilization and optimization on medication regimen while pending placement. Required 2-point b/l UE restraints due to aggression and agitation. Pending placement: waitlist at [place], no openings in foreseeable future. Also has a referral out to [facility], but they can't make a decision until pt is off restraints and 1:1 for 48 hours- did not require zyprexa IM prn since 3 evenings prior but has required restraints intermittently. Requires continued inpatient admission while pending placement which is contingent on medical optimization. #Dementia with agitation Has become aggressive over the past few years, it is no longer safe for to live at home with pt Off restraints as of this AM, calm and cooperate thus far Psychiatry consulted, appreciate recs: Advised by psych liaison to continue antipsychotic regimen based on IM availability for prn: zyprexa 10mg qHS, zyprexa 5mg qAM, keeping 2.5mg PO and IM BID prn for aggression (try PO first) Continue clonidine patch weekly, however now taken PO amlodipine- if BP <90/60 or symptomatic will scale back to clonidine 0.1mg patch Continue to give patient puzzles and activities to keep hands and mind busy Pursuing trial of discontinuing donepezil and memantine for now, after discussing GI adverse effects with Rosa, citing Dr. Owens's suggestion Labs for workup of dementia: vitamin B1 131 (WNL); RPR and Lyme are negative; B12 at 520 and TSH 1.9 within past few months in [facility] chart Head CT negative for acute pathology, only showing atrophy and chronic microvascular ischemic changes - Reinforced to staff to have room well-lit with windows open during the day; otherwise no overt delirogenic causes identified, and unfortunately current status seems c/w baseline decline Promote safe environment, optimize daytime/nighttime status with minimal interventions or disruptions overnight - PT/OT when able #Constipation Reportedly had a large BM 3 evenings ago Changed current bowel regimen to prn; discontinue dulcolax If no BM within the next 2 days, consider making Miralax 17g scheduled for every other day Continue to encourage good oral intake #AUDI / Hypokalemia #HTN, not at goal No longer obtaining daily labs, but prior hypokalemia has been repleted with KCl Continue amlodipine 5mg qAM, additionally on clonidine patch 0.2mg q7d Give hydralazine IV for SBP >200 and/or DBP >110, or if symptomatic #Rash, lower chest (reported) Reported by nursing staff as it was noticed when showering pt Ordered clotrimazole 1% cream to apply after shower, starting with a small amount to ensue good tolerance #BEATRIZ - suspect will not be compliant with CPAP, defer at this time #prostate cancerDx in 2013, under surveillance. Finasteride in place of dutasteride while in hospital. VTE ppx: Lovenox Dispo: will need to be off PRNs for 24-48hrs for facility to accept; continue medical optimization on med floor Admission and Anticipated Discharge Date Admission Date: June 18, 2025 Supervising Physician Co-Signing Physician Notes I personally examined the patient and verified all [place] points of history and exam, discussed case, and agree with decision making with Dr Hodgson no issues today. HPI is obviously exceedingly limited and of questionable veracity but he offers no complaints. Vitals noted, Sitting up in bed, pleasant, conversationally confused, no distress. HEENT normocephalic atraumatic mucous membranes moist. Breathing unlabored no accessory muscle use good effort. Skin without rashes pallor or icterus. Neuro without focal deficits. Dementia with agitation. Continue current care. Continue reorientation and supportive care. Has not had IM Zyprexa since 06/28. Still pending placement. appreciate case management efforts. agree with and appreciate psychiatry input. Otherwise as above, pending placement. Subjective Seen and evaluated at bedside this AM, sitting on edge of bed with all extremities free. Appearing calm and pleasant this AM, was amenable to most questioning and exam. Denies any chest pain, SOB, abdominal pain. Review of Systems Review of Systems: As per HPI Physical Exam Physical Exam: in bed, mildly agitated but no distress breathing unlabored no accessory muscles good effort skin no rashes no pallor or icterus neuro no lateralizing signs Results & Data Results & Data Vital Signs (Past 12 Hours) Vital Signs Temp Pulse Pulse Pulse Resp BP BP 06/19/25 08:14 36.5 C 85 16 142/91 H 06/19/25 00:30 36.5 C 65 16 148/94 H 06/18/25 23:44 76 18 159/114 H 06/18/25 23:43 80 20 159/114 H 06/18/25 23:33 83 22 163/102 H Pulse Ox O2 Del Method 06/19/25 08:14 93 Room Air 06/19/25 00:30 91 Room Air 06/18/25 23:44 95 Room Air 06/18/25 23:43 94 Room Air 06/18/25 23:33 94 Room Air Resident Activity Tracking Resident Involvement: Resident Care Provided Care Provided: Adult Hospital Medicine
--- NOTE | 2025-07-05 17:56 | Billing Data ---
Date of Service July 05, 2025 Coding Level of Care Code 17720 SUB INP/OBS CARE
--- NOTE | 2025-07-06 09:34 | Hospitalist Progress Note ---
Date of Service July 06, 2025 Assessment & Plan (1) Dementia with agitation: (2) HTN (hypertension): (3) Obstructive sleep apnea of adult: Plan Nixon is an 80yo male with progressing dementia with agitation, acute kidney injury with hypokalemia, and HTN, requires continued admission for stabilization and optimization on medication regimen while pending placement. Required 2-point b/l UE restraints due to aggression and agitation. Pending placement: waitlist at [facility], no openings in foreseeable future. Also has a referral out to [facility], but they can't make a decision until pt is off restraints and 1:1 for 48 hours- did not require zyprexa IM prn since 3 evenings prior but has required restraints intermittently. Requires continued inpatient admission while pending placement which is contingent on medical optimization. #Dementia with agitation Has become aggressive over the past few years, it is no longer safe for to live at home with pt Off restraints as of this AM, calm and cooperate thus far Psychiatry consulted, appreciate recs: Advised by psych liaison to continue antipsychotic regimen based on IM availability for prn: zyprexa 10mg qHS, zyprexa 5mg qAM, keeping 2.5mg PO and IM BID prn for aggression (try PO first) Continue clonidine patch weekly, however now taken PO amlodipine- if BP <90/60 or symptomatic will scale back to clonidine 0.1mg patch Continue to give patient puzzles and activities to keep hands and mind busy Pursuing trial of discontinuing donepezil and memantine for now, after discussing GI adverse effects with Rosa, citing Dr. Owens's suggestion Labs for workup of dementia: vitamin B1 131 (WNL); RPR and Lyme are negative; B12 at 520 and TSH 1.9 within past few months in [facility] chart Head CT negative for acute pathology, only showing atrophy and chronic microvascular ischemic changes - Reinforced to staff to have room well-lit with windows open during the day; otherwise no overt delirogenic causes identified, and unfortunately current status seems c/w baseline decline Promote safe environment, optimize daytime/nighttime status with minimal interventions or disruptions overnight - PT/OT when able #Constipation Reportedly had a large BM 3 evenings ago Changed current bowel regimen to prn; discontinue dulcolax If no BM within the next 2 days, consider making Miralax 17g scheduled for every other day Continue to encourage good oral intake #AUDI / Hypokalemia #HTN, not at goal No longer obtaining daily labs, but prior hypokalemia has been repleted with KCl Continue amlodipine 5mg qAM, additionally on clonidine patch 0.2mg q7d Give hydralazine IV for SBP >200 and/or DBP >110, or if symptomatic #Rash, lower chest (reported) Reported by nursing staff as it was noticed when showering pt Ordered clotrimazole 1% cream to apply after shower, starting with a small amount to ensue good tolerance #BEATRIZ - suspect will not be compliant with CPAP, defer at this time #prostate cancerDx in 2013, under surveillance. Finasteride in place of dutasteride while in hospital. VTE ppx: Lovenox Dispo: will need to be off PRNs for 24-48hrs for facility to accept; continue medical optimization on med floor Admission and Anticipated Discharge Date Admission Date: June 18, 2025 Supervising Physician Co-Signing Physician Notes I personally examined the patient and verified all [place] points of history and exam, discussed case, and agree with decision making with Dr Hodgson again no issues today. HPI is obviously exceedingly limited and of questionable veracity but he offers no complaints. Vitals noted, Sitting up in bed, pleasant, conversationally confused, no distress. HEENT normocephalic atraumatic mucous membranes moist. Breathing unlabored no accessory muscle use good effort. Skin without rashes pallor or icterus. Neuro without focal deficits. Dementia with agitation. Continue current care. Continue reorientation and supportive care. Has not had IM Zyprexa since 06/28. appreciate case management efforts and he is still pending placement. agree with and appreciate psychiatry input. Otherwise as above, pending placement. Subjective Seen and evaluated at bedside this AM, sitting on edge of bed with all extremities free. Appearing calm and pleasant this AM, was amenable to most questioning and exam. Denies any chest pain, SOB, abdominal pain. Review of Systems Review of Systems: As per HPI Physical Exam Physical Exam: Constitutional: Well appearing, No acute distress, PILCCOD: Negative HEENT: Atraumatic, Normocephalic, No conjunctival injection CVS: S1 S2 no murmur, Regular Rhythm, no LE edema Respiratory: BL equal air entry with NVBS. No rhonchi, wheezes, or crackles. No increased work of breathing GI: Soft, Nondistended, Nontender, Normal Bowel sounds + MSK: No gross deformities noted Skin: Warm, Dry, No rashes Neuro: Alert, Oriented to TPP, No Focal deficit Psych: Mood and Affect congruent, Cooperative on exam Results & Data Results & Data Vital Signs (Past 12 Hours) Vital Signs Temp Pulse Resp BP Pulse Ox O2 Del Method 07/06/25 06:51 36.4 C L 54 L 16 162/89 H 94 Room Air 07/06/25 00:54 36.4 C L 80 18 140/98 92 Room Air
--- NOTE | 2025-07-06 12:29 | Billing Data ---
Date of Service July 06, 2025 Coding Level of Care Code 37978 SUB INP/OBS CARE
--- NOTE | 2025-07-07 11:09 | Hospitalist Progress Note ---
Date of Service July 07, 2025 Assessment & Plan (1) Dementia with agitation: (2) HTN (hypertension): (3) Obstructive sleep apnea of adult: Plan Nixon is an 80yo male with progressing dementia with agitation, acute kidney injury with hypokalemia, and HTN, requires continued admission for stabilization and optimization on medication regimen while pending placement. Required 2-point b/l UE restraints due to aggression and agitation. Pending placement: waitlist at [facility], no openings in foreseeable future. Also has a referral out to [facility], but they can't make a decision until pt is off restraints and 1:1 for 48 hours- did not require zyprexa IM prn since 3 evenings prior but has required restraints intermittently. Requires continued inpatient admission while pending placement which is contingent on medical optimization. #Dementia with agitation - Has become aggressive over the past few years, it is no longer safe for to live at home with pt Psychiatry consulted, appreciate recs: Advised by psych liaison to continue antipsychotic regimen based on IM availability for prn: zyprexa 10mg qHS, zyprexa 5mg qAM, keeping 2.5mg PO and IM BID prn for aggression (try PO first) Continue clonidine patch weekly, however now taken PO amlodipine- if BP <90/60 or symptomatic will scale back to clonidine 0.1mg patch Continue to give patient puzzles and activities to keep hands and mind busy Pursuing trial of discontinuing donepezil and memantine for now, after discussing GI adverse effects with Rosa, citing Dr. Owens's suggestion - Labs for workup of dementia: vitamin B1 131 (WNL); RPR and Lyme are negative; B12 at 520 and TSH 1.9 within past few months in H chart - Head CT negative for acute pathology, only showing atrophy and chronic microvascular ischemic changes - Reinforced to staff to have room well-lit with windows open during the day; otherwise no overt delirium inducing causes identified, and unfortunately current status seems c/w baseline decline - Promote safe environment, optimize daytime/nighttime status with minimal interventions or disruptions overnight - PT/OT when able #Constipation - Changed current bowel regimen to prn; discontinue dulcolax - If no BM within the next 2 days, consider making Miralax 17g scheduled for every other day - Continue to encourage good oral intake #AUDI / Hypokalemia #HTN, not at goal - No longer obtaining daily labs, but prior hypokalemia has been repleted with KCl - Continue amlodipine 5mg qAM, additionally on clonidine patch 0.2mg q7d - Give hydralazine IV for SBP >200 and/or DBP >110, or if symptomatic #Rash, lower chest (reported) - Reported by nursing staff as it was noticed when showering pt - Ordered clotrimazole 1% cream to apply after shower, starting with a small amount to ensue good tolerance #BEATRIZ - suspect will not be compliant with CPAP, defer at this time #prostate cancerDx in 2013, under surveillance. Finasteride in place of dutasteride while in hospital. VTE ppx: Lovenox Dispo: will need to be off PRNs for 24-48hrs for facility to accept; continue medical optimization on med floor Admission and Anticipated Discharge Date Admission Date: June 18, 2025 Supervising Physician Co-Signing Physician Notes ATTESTATION I also saw the patient and confirmed [place] portions of the history and exam. I agree with the impression and plan in the resident documentation, and as summarized below. EXAM Lying in bed, listening to music. Limited conversation. No s/s of pain. IMPRESSION & PLAN Dementia with agitation Hypokalemia Continue current care Bed search pending Recheck BMP in AM with regards to hypokalemia Additional per resident documentation. Subjective Patient seen resting comfortably this AM, patient is in 2 point restraints. Patient denies acute pain and discomfort, and replies yes or no to most questions and commands. Patient is not alert or oriented, but is able to follow basic commands. Patient remains afebrile and hemodynamically stable. Physical Exam Physical Exam: General: patient resting comfortably, NAD, non-toxic in appearance, answers questions appropriately Skin: warm, dry, intact HEENT: NC/AT, anicteric sclera, conjunctiva without injection, moist mucus mem branes Heart: +S1/S2, regular, no m/r/g Lungs: equal air entry bilaterally, no rales/rhonchi/wheezes Abd: +BS, soft, NT/ND Ext: warm, no clubbing/cyanosis or edema Neuro: nonfocal, speech intact, no facial droop, moving all extremities Results & Data Results & Data Vital Signs (Past 12 Hours) Vital Signs Temp Pulse Resp BP Pulse Ox O2 Del Method 07/07/25 09:20 36.4 C L 68 15 143/78 H 96 Room Air 07/06/25 23:41 36.5 C 87 18 141/92 H 92 Room Air Resident Activity Tracking Resident Involvement: Resident Care Provided Care Provided: Adult Hospital Medicine
[2025-07-07] MEDS: DOCUSATE SODIUM 100 MG CAP PO PRN (14:47)
--- NOTE | 2025-07-07 17:12 | Hospitalist Progress Note ---
Date of Service July 05, 2025 Assessment & Plan (1) Dementia with agitation: (2) HTN (hypertension): (3) Obstructive sleep apnea of adult: Plan Nixon is an 80yo male with progressing dementia with agitation, acute kidney injury with hypokalemia, and HTN, requires continued admission for stabilization and optimization on medication regimen while pending placement. Required 2-point b/l UE restraints due to aggression and agitation. Pending placement: waitlist at [facility], no openings in foreseeable future. Also has a referral out to [facility], but they can't make a decision until pt is off restraints and 1:1 for 48 hours- did not require zyprexa IM prn since 3 evenings prior but has required restraints intermittently. Requires continued inpatient admission while pending placement which is contingent on medical optimization. #Dementia with agitation Has become aggressive over the past few years, it is no longer safe for to live at home with pt Off restraints as of this AM, calm and cooperate thus far Psychiatry consulted, appreciate recs: Advised by psych liaison to continue antipsychotic regimen based on IM availability for prn: zyprexa 10mg qHS, zyprexa 5mg qAM, keeping 2.5mg PO and IM BID prn for aggression (try PO first) Continue clonidine patch weekly, however now taken PO amlodipine- if BP <90/60 or symptomatic will scale back to clonidine 0.1mg patch Continue to give patient puzzles and activities to keep hands and mind busy Pursuing trial of discontinuing donepezil and memantine for now, after discussing GI adverse effects with Rosa, citing Dr. Owens's suggestion Labs for workup of dementia: vitamin B1 131 (WNL); RPR and Lyme are negative; B12 at 520 and TSH 1.9 within past few months in P[facility] chart Head CT negative for acute pathology, only showing atrophy and chronic microvascular ischemic changes - Reinforced to staff to have room well-lit with windows open during the day; otherwise no overt delirogenic causes identified, and unfortunately current status seems c/w baseline decline Promote safe environment, optimize daytime/nighttime status with minimal interventions or disruptions overnight - PT/OT when able #Constipation Reportedly had a large BM 3 evenings ago Changed current bowel regimen to prn; discontinue dulcolax If no BM within the next 2 days, consider making Miralax 17g scheduled for every other day Continue to encourage good oral intake #AUDI / Hypokalemia #HTN, not at goal No longer obtaining daily labs, but prior hypokalemia has been repleted with KCl Continue amlodipine 5mg qAM, additionally on clonidine patch 0.2mg q7d Give hydralazine IV for SBP >200 and/or DBP >110, or if symptomatic #Rash, lower chest (reported) Reported by nursing staff as it was noticed when showering pt Ordered clotrimazole 1% cream to apply after shower, starting with a small amount to ensue good tolerance #BEATRIZ - suspect will not be compliant with CPAP, defer at this time #prostate cancerDx in 2013, under surveillance. Finasteride in place of dutasteride while in hospital. VTE ppx: Lovenox Dispo: will need to be off PRNs for 24-48hrs for facility to accept; continue medical optimization on med floor Admission and Anticipated Discharge Date Admission Date: June 18, 2025 Subjective Patient seen resting comfortably this AM, patient is in 2 point restraints. Patient denies acute pain . No any overnight events or new concerns. Review of Systems Review of Systems: As per HPI Physical Exam Physical Exam: Constitutional: Well appearing, No acute distress, PILCCOD: Negative HEENT: Atraumatic, Normocephalic, No conjunctival injection CVS: S1 S2 no murmur, Regular Rhythm, no LE edema Respiratory: BL equal air entry with NVBS. No rhonchi, wheezes, or crackles. No increased work of breathing GI: Soft, Nondistended, Nontender, Normal Bowel sounds + MSK: No gross deformities noted Skin: Warm, Dry, No rashes Neuro: Alert, Oriented to TPP, No Focal deficit Psych: Mood and Affect congruent, Cooperative on exam Results & Data Results & Data Vital Signs (Past 12 Hours) Vital Signs Temp Pulse Resp BP Pulse Ox O2 Del Method 07/07/25 15:22 36.5 C 75 15 141/92 H 96 Room Air 07/07/25 09:20 36.4 C L 68 15 143/78 H 96 Room Air Resident Activity Tracking Resident Involvement: Resident Care Provided Care Provided: Adult Hospital Medicine
[2025-07-08 06:24] LABS: Hematocrit (blood only) 40.7 % (42.0-52.0); Hemoglobin 13.7 g/dl (14.0-18.0); Immature Granulocytes # (auto) 0.08 K/uL (0.01-0.20); Immature Granulocytes % (auto) 1.3 %; Mean Corpuscular Hemoglobin 29.5 pg (25.0-34.0); Mean Corpuscular Volume 87.7 fL (80.0-100.0); Platelet Count 296 K/uL (130-400); RDW Standard Deviation 40.9 fL (36.4-46.3); Red Blood Count 4.64 M/uL (4.70-6.10); White Blood Count 5.98 K/ul (4.8-10.8)
[2025-07-08 06:48] LABS: Anion Gap 7.0 (3-11); Blood Urea Nitrogen 21.0 mg/dl (6-23); Calcium 9.5 mg/dl (8.6-10.3); Carbon Dioxide 29.0 mmol/L (21-32); Chloride 105.0 mmol/L (98-107); Creatinine Clr Calc Pharmacy 56.4 ml/min; Glucose 106.0 mg/dl (70-99(Fasting)); Potassium 3.2 mmol/L (3.5-5.1); Sodium 141.0 mmol/L (136-145)
[2025-07-08] MEDS: POTASSIUM CHLORIDE CRTAB 20 MEQ TABCR PO STA (09:29)
--- NOTE | 2025-07-08 10:36 | Hospitalist Progress Note ---
Date of Service July 08, 2025 Assessment & Plan (1) Dementia with agitation: (2) HTN (hypertension): (3) Obstructive sleep apnea of adult: Plan Nixon is an 80yo male with progressing dementia with agitation, acute kidney injury with hypokalemia, and HTN, requires continued admission for stabilization and optimization on medication regimen while pending placement. Required 2-point b/l UE restraints due to aggression and agitation. Pending placement: waitlist at [facility], no openings in foreseeable future. Also has a referral out to [facility], but they can't make a decision until pt is off restraints and 1:1 for 48 hours- did not require zyprexa IM prn since 3 evenings prior but has required restraints intermittently. Requires continued inpatient admission while pending placement which is contingent on medical optimization. #Dementia with agitation - Has become aggressive over the past few years, it is no longer safe for to live at home with pt Psychiatry consulted, appreciate recs: Advised by psych liaison to continue antipsychotic regimen based on IM availability for prn: zyprexa 10mg qHS, zyprexa 5mg qAM, keeping 2.5mg PO and IM BID prn for aggression (try PO first) Continue clonidine patch weekly, however now taken PO amlodipine- if BP <90/60 or symptomatic will scale back to clonidine 0.1mg patch Continue to give patient puzzles and activities to keep hands and mind busy Pursuing trial of discontinuing donepezil and memantine for now, after discussing GI adverse effects with Rosa, citing Dr. Owens's suggestion - Labs for workup of dementia: vitamin B1 131 (WNL); RPR and Lyme are negative; B12 at 520 and TSH 1.9 within past few months in H chart - Head CT negative for acute pathology, only showing atrophy and chronic microvascular ischemic changes - Reinforced to staff to have room well-lit with windows open during the day; otherwise no overt delirium inducing causes identified, and unfortunately current status seems c/w baseline decline - Promote safe environment, optimize daytime/nighttime status with minimal interventions or disruptions overnight - PT/OT when able #Constipation - Changed current bowel regimen to prn; discontinue dulcolax - If no BM within the next 2 days, consider making Miralax 17g scheduled for every other day - Continue to encourage good oral intake #AUDI / Hypokalemia #HTN, not at goal - No longer obtaining daily labs, but prior hypokalemia has been repleted with KCl - Continue amlodipine 5mg qAM, additionally on clonidine patch 0.2mg q7d - Give hydralazine IV for SBP >200 and/or DBP >110, or if symptomatic - 40mg PO potassium x2 given a couple hours apart today, recheck BMP QAM #Rash, lower chest (reported) - Reported by nursing staff as it was noticed when showering pt - Ordered clotrimazole 1% cream to apply after shower, starting with a small amount to ensue good tolerance #BEATRIZ - suspect will not be compliant with CPAP, defer at this time #prostate cancerDx in 2012, under surveillance. Finasteride in place of dutasteride while in hospital. VTE ppx: Lovenox Dispo: will need to be off PRNs for 24-48hrs for facility to accept; continue medical optimization on med floor Admission and Anticipated Discharge Date Admission Date: June 18, 2025 Supervising Physician Co-Signing Physician Notes ATTESTATION I also saw the patient and confirmed [place] portions of the history and exam. I agree with the impression and plan in the resident documentation, and as summarized below. EXAM Lying in bed, awake, alert, answers very simple questions Limited conversation. No s/s of pain. IMPRESSION & PLAN Dementia with agitation Hypokalemia Continue current care Bed search pending Replete potassium Additional per resident documentation. Subjective Patient seen resting comfortably this AM, patient is in 2 point restraints. Patient denies acute pain . No any overnight events or new concerns. Physical Exam Physical Exam: General: patient resting comfortably, NAD, non-toxic in appearance, answers questions appropriately Skin: warm, dry, intact HEENT: NC/AT, anicteric sclera, conjunctiva without injection, moist mucus membranes Heart: +S1/S2, regular, no m/r/g Lungs: equal air entry bilaterally, no rales/rhonchi/wheezes Abd: +BS, soft, NT/ND Ext: warm, no clubbing/cyanosis or edema Neuro: nonfocal, speech intact, no facial droop, moving all extremities Results & Data Results & Data Vital Signs (Past 12 Hours) Vital Signs Temp Pulse Resp BP Pulse Ox O2 Del Method 07/08/25 07:06 36.4 C L 59 L 16 124/75 93 Room Air Resident Activity Tracking Resident Involvement: Resident Care Provided Care Provided: Adult Hospital Medicine
[2025-07-08] MEDS: POTASSIUM CHLORIDE CRTAB 20 MEQ TABCR PO ONE (13:34)
[2025-07-09 09:25] LABS: Hematocrit (blood only) 41.4 % (42.0-52.0); Hemoglobin 14.0 g/dl (14.0-18.0); Immature Granulocytes # (auto) 0.05 K/uL (0.01-0.20); Immature Granulocytes % (auto) 0.8 %; Mean Corpuscular Hemoglobin 29.7 pg (25.0-34.0); Mean Corpuscular Volume 87.7 fL (80.0-100.0); Platelet Count 298 K/uL (130-400); RDW Standard Deviation 41.4 fL (36.4-46.3); Red Blood Count 4.72 M/uL (4.70-6.10); White Blood Count 6.04 K/ul (4.8-10.8)
[2025-07-09 09:45] LABS: Anion Gap 6.0 (3-11); Blood Urea Nitrogen 20.0 mg/dl (6-23); Calcium 9.4 mg/dl (8.6-10.3); Carbon Dioxide 28.0 mmol/L (21-32); Chloride 108.0 mmol/L (98-107); Creatinine Clr Calc Pharmacy 71.2 ml/min; Glucose 115.0 mg/dl (70-99(Fasting)); Potassium 3.3 mmol/L (3.5-5.1); Sodium 142.0 mmol/L (136-145)
--- NOTE | 2025-07-09 10:55 | Hospitalist Progress Note ---
Date of Service July 09, 2025 Assessment & Plan (1) Dementia with agitation: (2) HTN (hypertension): (3) Obstructive sleep apnea of adult: Plan Nixon is an 80yo male with progressing dementia with agitation, acute kidney injury with hypokalemia, and HTN, requires continued admission for stabilization and optimization on medication regimen while pending placement. Required 2-point b/l UE restraints due to aggression and agitation. Pending placement: waitlist at [facility], no openings in foreseeable future. Also has a referral out to [facility], but they can't make a decision until pt is off restraints and 1:1 for 48 hours- did not require zyprexa IM prn since 3 evenings prior but has required restraints intermittently. Requires continued inpatient admission while pending placement which is contingent on medical optimization. #Dementia with agitation - Has become aggressive over the past few years, it is no longer safe for to live at home with pt Psychiatry consulted, appreciate recs: Advised by psych liaison to continue antipsychotic regimen based on IM availability for prn: zyprexa 10mg qHS, zyprexa 5mg qAM, keeping 2.5mg PO and IM BID prn for aggression (try PO first) Continue clonidine patch weekly, however now taken PO amlodipine- if BP <90/60 or symptomatic will scale back to clonidine 0.1mg patch Continue to give patient puzzles and activities to keep hands and mind busy Pursuing trial of discontinuing donepezil and memantine for now, after discussing GI adverse effects with Rosa, citing Dr. Owens's suggestion - Labs for workup of dementia: vitamin B1 131 (WNL); RPR and Lyme are negative; B12 at 520 and TSH 1.9 within past few months in H chart - Head CT negative for acute pathology, only showing atrophy and chronic microvascular ischemic changes - Reinforced to staff to have room well-lit with windows open during the day; otherwise no overt delirium inducing causes identified, and unfortunately current status seems c/w baseline decline - Promote safe environment, optimize daytime/nighttime status with minimal interventions or disruptions overnight - Removed non-violent restraints and initiated 1:1, with hope of removing 1:1 as soon as possible for eventual transition to detention/memory unit - PT/OT when able #Constipation - Changed current bowel regimen to prn; discontinue dulcolax - If no BM within the next 2 days, consider making Miralax 17g scheduled for every other day - Continue to encourage good oral intake #AUDI / Hypokalemia #HTN, not at goal - No longer obtaining daily labs, but prior hypokalemia has been repleted with KCl - Continue amlodipine 5mg qAM, additionally on clonidine patch 0.2mg q7d - Give hydralazine IV for SBP >200 and/or DBP >110, or if symptomatic - 40mg PO potassium x2 given a couple hours apart today, recheck BMP QAM #Rash, lower chest (reported) - Reported by nursing staff as it was noticed when showering pt - Ordered clotrimazole 1% cream to apply after shower, starting with a small amount to ensue good tolerance #BEATRIZ - suspect will not be compliant with CPAP, defer at this time #prostate cancerDx in 2013, under surveillance. Finasteride in place of dutasteride while in hospital. VTE ppx: Lovenox Dispo: will need to be off PRNs for 24-48hrs for facility to accept; continue medical optimization on med floor Admission and Anticipated Discharge Date Admission Date: June 18, 2025 Supervising Physician Co-Signing Physician Notes ATTESTATION I also saw the patient and confirmed [place] portions of the history and exam. I agree with the impression and plan in the resident documentation, and as summarized below. EXAM Lying in bed, sleeping. Awakens to my voice but then falls back to sleep. CV regular Resp non labored No s/s of pain. IMPRESSION & PLAN Dementia with agitation Hypokalemia Remove soft restraints; add 1:1 Bed search pending Replete potassium Additional per resident documentation. Subjective Patient seen resting comfortably this AM, patient is now on 1:1 and restraints recently taken off. Patient without overnight adverse events or new concerns. Physical Exam Physical Exam: General: patient resting comfortably, NAD, non-toxic in appearance, answers questions appropriately Skin: warm, dry, intact HEENT: NC/AT, anicteric sclera, conjunctiva without injection, moist mucus membranes Heart: +S1/S2, regular, no m/r/g Lungs: equal air entry bilaterally, no rales/rhonchi/wheezes Abd: +BS, soft, NT/ND Ext: warm, no clubbing/cyanosis or edema Neuro: nonfocal, speech intact, no facial droop, moving all extremities Results & Data Results & Data Vital Signs (Past 12 Hours) Vital Signs Temp Pulse Resp BP Pulse Ox O2 Del Method 07/09/25 07:20 36.7 C 68 16 145/89 H 93 Room Air
[2025-07-09] MEDS ORDERED: POTASSIUM CHLORIDE 10 MEQ TABCR PO STA (14:41)
[2025-07-09] MEDS ORDERED: Nursing to Pharmacy Communication SCH (17:15)
[2025-07-09] MEDS: POTASSIUM CHLORIDE 10 MEQ TABCR PO STA (17:21)
[2025-07-09] MEDS: POTASSIUM CHLORIDE 10 MEQ TABCR PO ONE (19:22)
--- NOTE | 2025-07-10 08:27 | Hospitalist Progress Note ---
Date of Service July 10, 2025 Assessment & Plan (1) Dementia with agitation: (2) HTN (hypertension): (3) Obstructive sleep apnea of adult: Plan Nixon is an 80yo male with progressing dementia with agitation, acute kidney injury with hypokalemia, and HTN, requires continued admission for stabilization and optimization on medication regimen while pending placement. Required 2-point b/l UE restraints due to aggression and agitation. Pending placement: waitlist at [place], no openings in foreseeable future. Also has a referral out to [facility], but they can't make a decision until pt is off restraints and 1:1 for 48 hours- did not require zyprexa IM prn since 3 evenings prior but has required restraints intermittently. Requires continued inpatient admission while pending placement which is contingent on medical optimization. #Dementia with agitation - Has become aggressive over the past few years, it is no longer safe for to live at home with pt Psychiatry consulted, appreciate recs: Advised by psych liaison to continue antipsychotic regimen based on IM availability for prn: zyprexa 10mg qHS, zyprexa 5mg qAM, keeping 2.5mg PO and IM BID prn for aggression (try PO first) Continue clonidine patch weekly, however now taken PO amlodipine- if BP <90/60 or symptomatic will scale back to clonidine 0.1mg patch Continue to give patient puzzles and activities to keep hands and mind busy Pursuing trial of discontinuing donepezil and memantine for now, after discussing GI adverse effects with Rosa, citing Dr. Owens's suggestion - Labs for workup of dementia: vitamin B1 131 (WNL); RPR and Lyme are negative; B12 at 520 and TSH 1.9 within past few months in H chart - Head CT negative for acute pathology, only showing atrophy and chronic microvascular ischemic changes - Reinforced to staff to have room well-lit with windows open during the day; otherwise no overt delirium inducing causes identified, and unfortunately current status seems c/w baseline decline - Promote safe environment, optimize daytime/nighttime status with minimal interventions or disruptions overnight - Removed non-violent restraints and initiated 1:1, with hope of removing 1:1 as soon as possible for eventual transition to long term/memory unit - PT/OT when able #Constipation - Changed current bowel regimen to prn; discontinue dulcolax - If no BM within the next 2 days, consider making Miralax 17g scheduled for every other day - Continue to encourage good oral intake #AUDI / Hypokalemia #HTN, not at goal - No longer obtaining daily labs, but prior hypokalemia has been repleted with KCl - Continue amlodipine 5mg qAM, additionally on clonidine patch 0.2mg q7d - Give hydralazine IV for SBP >200 and/or DBP >110, or if symptomatic - 40mg PO potassium x2 given a couple hours apart today, recheck BMP QAM #Rash, lower chest (reported) - Reported by nursing staff as it was noticed when showering pt - Ordered clotrimazole 1% cream to apply after shower, starting with a small amount to ensue good tolerance #BEATRIZ - suspect will not be compliant with CPAP, defer at this time #prostate cancerDx in 2013, under surveillance. Finasteride in place of dutasteride while in hospital. VTE ppx: Lovenox Dispo: will need to be off PRNs for 24-48hrs for facility to accept; continue medical optimization on med floor Admission and Anticipated Discharge Date Admission Date: June 18, 2025 Supervising Physician Co-Signing Physician Notes ATTESTATION I also saw the patient and confirmed [place] portions of the history and exam. I agree with the impression and plan in the resident documentation, and as summarized below. EXAM Seated in bed. Cooperative at the time of my exam. CV regular Resp non labored No s/s of pain. IMPRESSION & PLAN Dementia with agitation Hypokalemia, resolved In reviewing records, patient had been on Namenda previously but stopped at some point recently. Hospice literature does note possibility of worsening behavioral symptoms in end stage dementia when Namenda is withdrawn. Recommend resuming Namenda daily - could consider resuming BID dosing in about a week. No indication to resume Aricept, as it has not demonstrated same effect on behavioral health. Continue 1:1 Bed search pending Additional per resident documentation. Subjective Patient seen resting comfortably this AM, patient is now on 1:1 and restraints recently taken off. Patient did have event of hitting nurse in hand with increased agitation during morning medication administration. Patient remains hemodynamically stable and afebrile. Physical Exam Physical Exam: General: patient resting comfortably, NAD, non-toxic in appearance, answers qu estions appropriately Skin: warm, dry, intact HEENT: NC/AT, anicteric sclera, conjunctiva without injection, moist mucus membranes Heart: +S1/S2, regular, no m/r/g Lungs: equal air entry bilaterally, no rales/rhonchi/wheezes Abd: +BS, soft, NT/ND Ext: warm, no clubbing/cyanosis or edema Neuro: nonfocal, speech intact, no facial droop, moving all extremities Results & Data Results & Data Vital Signs (Past 12 Hours) Vital Signs Temp Pulse Pulse Resp BP Pulse Ox O2 Del Method 07/10/25 07:11 36.5 C 64 16 138/78 93 Room Air 07/09/25 23:10 36.9 C 90 16 118/80 92 Room Air Resident Activity Tracking Resident Involvement: Resident Care Provided Care Provided: Adult Hospital Medicine
[2025-07-10 10:23] LABS: Anion Gap 10.0 (3-11); Blood Urea Nitrogen 24.0 mg/dl (6-23); Calcium 10.3 mg/dl (8.6-10.3); Carbon Dioxide 27.0 mmol/L (21-32); Chloride 104.0 mmol/L (98-107); Creatinine Clr Calc Pharmacy 49.5 ml/min; Glucose 107.0 mg/dl (70-99(Fasting)); Potassium 3.7 mmol/L (3.5-5.1); Sodium 141.0 mmol/L (136-145)
[2025-07-10] MEDS: MEMANTINE HCL 5 MG TAB PO ONE (16:11)
[2025-07-10] MEDS ORDERED: Nursing to Pharmacy Communication SCH (17:00)
[2025-07-10] MEDS: POTASSIUM CHLORIDE 10 MEQ TABCR PO STA (20:19)
--- NOTE | 2025-07-11 08:15 | Hospitalist Progress Note ---
Date of Service July 11, 2025 Assessment & Plan (1) Dementia with agitation: (2) HTN (hypertension): (3) Obstructive sleep apnea of adult: Plan Nixon is an 80yo male with progressing dementia with agitation, acute kidney injury with hypokalemia, and HTN, requires continued admission for stabilization and optimization on medication regimen while pending placement. Required 2-point b/l UE restraints due to aggression and agitation. Pending placement: waitlist at [place], no openings in foreseeable future. Also has a referral out to [facility], but they can't make a decision until pt is off restraints and 1:1 for 48 hours- did not require zyprexa IM prn since 3 evenings prior but has required restraints intermittently. Requires continued inpatient admission while pending placement which is contingent on medical optimization. #Dementia with agitation - Has become aggressive over the past few years, it is no longer safe for to live at home with pt Psychiatry consulted, appreciate recs: Advised by psych liaison to continue antipsychotic regimen based on IM availability for prn: zyprexa 10mg qHS, zyprexa 5mg qAM, keeping 2.5mg PO and IM BID prn for aggression (try PO first) Continue clonidine patch weekly, however now taken PO amlodipine- if BP <90/60 or symptomatic will scale back to clonidine 0.1mg patch Continue to give patient puzzles and activities to keep hands and mind busy Pursuing trial of discontinuing donepezil and memantine for now, after discussing GI adverse effects with Rosa, citing Dr. Owens's suggestion - Labs for workup of dementia: vitamin B1 131 (WNL); RPR and Lyme are negative; B12 at 520 and TSH 1.9 within past few months in H chart - Head CT negative for acute pathology, only showing atrophy and chronic microvascular ischemic changes - Reinforced to staff to have room well-lit with windows open during the day; otherwise no overt delirium inducing causes identified, and unfortunately current status seems c/w baseline decline - Promote safe environment, optimize daytime/nighttime status with minimal interventions or disruptions overnight - Removed non-violent restraints and initiated 1:1, with hope of removing 1:1 as soon as possible for eventual transition to [facility]/memory unit - PT/OT when able #Constipation - Changed current bowel regimen to prn; discontinue dulcolax - If no BM within the next 2 days, consider making Miralax 17g scheduled for every other day - Continue to encourage good oral intake #AUDI / Hypokalemia #HTN, not at goal - No longer obtaining daily labs, but prior hypokalemia has been repleted with KCl - Continue amlodipine 5mg qAM, additionally on clonidine patch 0.2mg q7d - Give hydralazine IV for SBP >200 and/or DBP >110, or if symptomatic - 40mg PO potassium x2 given a couple hours apart today - Potassium now resolved: 4.0 #Rash, lower chest (reported) - Reported by nursing staff as it was noticed when showering pt - Ordered clotrimazole 1% cream to apply after shower, starting with a small amount to ensue good tolerance #BEATRIZ - suspect will not be compliant with CPAP, defer at this time #prostate cancerDx in 2013, under surveillance. Finasteride in place of dutasteride while in hospital. VTE ppx: Lovenox Dispo: will need to be off PRNs for 24-48hrs for facility to accept; continue medical optimization on med floor Admission and Anticipated Discharge Date Admission Date: June 18, 2025 Supervising Physician Co-Signing Physician Notes I personally examined the patient and verified [place] points of history and exam, discussed case, and agree with decision making and plan documented by Dr. Espana. Patient with agitation in setting of dementia. Patient pending placement. Remains on 1:1. Subjective Patient seen resting comfortably this AM, patient is now on 1:1 and restraints recently taken off. Patient without overnight events. Patient is seen seated this AM, and is oriented to person, but not place, age or, year. Patient remains hemodynamically stable and afebrile. Physical Exam Physical Exam: General: patient resting comfortably, NAD, non-toxic in appearance, answers questions appropriately Skin: warm, dry, intact HEENT: NC/AT, anicteric sclera, conjunctiva without injection, moist mucus membranes Heart: +S1/S2, regular, no m/r/g Lungs: equal air entry bilaterally, no rales/rhonchi/wheezes Abd: +BS, soft, NT/ND Ext: warm, no clubbing/cyanosis or edema Neuro: nonfocal, speech intact, no facial droop, moving all extremities Results & Data Results & Data Vital Signs (Past 12 Hours) Vital Signs Temp Pulse Resp BP Pulse Ox O2 Del Method 07/11/25 07:36 36.5 C 64 16 133/75 93 Room Air 07/10/25 23:09 36.5 C 84 16 116/84 94 Room Air Resident Activity Tracking Resident Involvement: Resident Care Provided Care Provided: Adult Hospital Medicine
[2025-07-11 08:28] LABS: Hematocrit (blood only) 43.8 % (42.0-52.0); Hemoglobin 14.7 g/dl (14.0-18.0); Immature Granulocytes # (auto) 0.06 K/uL (0.01-0.20); Immature Granulocytes % (auto) 0.6 %; Mean Corpuscular Hemoglobin 29.9 pg (25.0-34.0); Mean Corpuscular Volume 89.2 fL (80.0-100.0); Platelet Count 303 K/uL (130-400); RDW Standard Deviation 42.5 fL (36.4-46.3); Red Blood Count 4.91 M/uL (4.70-6.10); White Blood Count 9.89 K/ul (4.8-10.8)
[2025-07-11 08:43] LABS: Anion Gap 7.0 (3-11); Blood Urea Nitrogen 27.0 mg/dl (6-23); Calcium 9.9 mg/dl (8.6-10.3); Carbon Dioxide 25.0 mmol/L (21-32); Chloride 105.0 mmol/L (98-107); Creatinine Clr Calc Pharmacy 52.7 ml/min; Glucose 109.0 mg/dl (70-99(Fasting)); Potassium 4.0 mmol/L (3.5-5.1); Sodium 137.0 mmol/L (136-145)
[2025-07-11] MEDS: MEMANTINE HCL 5 MG TAB PO SCH (08:52)
--- NOTE | 2025-07-12 08:17 | Hospitalist Progress Note ---
Date of Service July 12, 2025 Assessment & Plan (1) Dementia with agitation: (2) HTN (hypertension): (3) Obstructive sleep apnea of adult: Plan Nixon is an 80yo male with progressing dementia with agitation, acute kidney injury with hypokalemia, and HTN, requires continued admission for stabilization and optimization on medication regimen while pending placement. Required 2-point b/l UE restraints due to aggression and agitation. Pending placement: waitlist at [place], no openings in foreseeable future. Also has a referral out to [facility], but they can't make a decision until pt is off restraints and 1:1 for 48 hours- did not require zyprexa IM prn since 3 evenings prior but has required restraints intermittently. Requires continued inpatient admission while pending placement which is contingent on medical optimization. #Dementia with agitation - Has become aggressive over the past few years, it is no longer safe for to live at home with pt Psychiatry consulted, appreciate recs: Advised by psych liaison to continue antipsychotic regimen based on IM availability for prn: zyprexa 10mg qHS, zyprexa 5mg qAM, keeping 2.5mg PO and IM BID prn for aggression Continue clonidine patch 0.2mg weekly Continue to give patient puzzles and activities to keep hands and mind busy - Vitamin B1: wnl; RPR and Lyme are negative; B12 at 520 and TSH 1.9 within past few months in H chart - Head CT negative for acute pathology, only showing atrophy and chronic microvascular ischemic changes - Reinforced to staff to have room well-lit with windows open during the day; otherwise no overt delirium inducing causes identified, and unfortunately current status seems c/w baseline decline - Promote safe environment, optimize daytime/nighttime status with minimal interventions or disruptions overnight - Removed non-violent restraints and initiated 1:1, with hope of removing 1:1 as soon as possible for eventual transition to intermediate/memory unit - PT/OT when able #Constipation - If no BM within the next 2 days, consider making Miralax 17g scheduled for every other day - Continue to encourage good oral intake #AUDI / Hypokalemia #HTN, not at goal - Cr: 1.08, K+: 4.0, BP: well controlled - Resolved #Rash, lower chest - Ordered clotrimazole 1% cream to apply after shower, starting with a small amount to ensue good tolerance - resolved #BEATRIZ - suspect will not be compliant with CPAP, defer at this time #prostate cancerDx in 2013, under surveillance. Finasteride in place of dutasteride while in hospital. VTE ppx: Lovenox Dispo: will need to be off PRNs for 24-48hrs for facility to accept; continue medical optimization on med floor Admission and Anticipated Discharge Date Admission Date: June 18, 2025 Supervising Physician Co-Signing Physician Notes I personally examined the patient and verified [place] points of history and exam, discussed case, and agree with decision making and plan documented by Dr. Espana. Patient with agitation in setting of dementia. Patient pending placement. Remains on 1:1. Trial lidocaine patch if low back pain persists. Subjective Patient seen resting comfortably this AM, patient is now on 1:1 and restraints recently taken off. Patient without overnight events. Patient is seen seated this AM, and is oriented to person, but not place, age or, year. 1:1 reports that patient became agitated when trying to find the bathroom and again during his clonidine patch exchange slapping away his nurse when attempting to exchange. Patient remains hemodynamically stable and afebrile. Physical Exam Physical Exam: General: patient resting comfortably, NAD, non-toxic in appearance Skin: warm, dry, intact HEENT: NC/AT, anicteric sclera, conjunctiva without injection, moist mucus membranes Heart: +S1/S2, regular, no m/r/g Lungs: equal air entry bilaterally, no rales/rhonchi/wheezes
[2025-07-12] MEDS: LIDOCAINE 5% 1 PATCH TD SCH (12:08)
[2025-07-12] MEDS: REMOVE LIDODERM PATCH SCH (20:09)
--- NOTE | 2025-07-13 11:46 | Hospitalist Progress Note ---
Date of Service July 13, 2025 Assessment & Plan (1) Dementia with agitation: (2) HTN (hypertension): (3) Obstructive sleep apnea of adult: Plan Nixon is an 80yo male with progressing dementia with agitation, acute kidney injury with hypokalemia, and HTN, requires continued admission for stabilization and optimization on medication regimen while pending placement. Required 2-point b/l UE restraints due to aggression and agitation. Pending placement: waitlist at [facility] [place], no openings in foreseeable future. Also has a referral out to [facility], but they can't make a decision until pt is off restraints and 1:1 for 48 hours- did not require zyprexa IM prn since 3 evenings prior but has required restraints intermittently. Requires continued inpatient admission while pending placement which is contingent on medical optimization. #Dementia with agitation - Has become aggressive over the past few years, it is no longer safe for to live at home with pt Psychiatry consulted, appreciate recs: Advised by psych liaison to continue antipsychotic regimen based on IM availability for prn: zyprexa 10mg qHS, zyprexa 5mg qAM, keeping 2.5mg PO and IM BID prn for aggression Continue clonidine patch 0.2mg weekly Continue to give patient puzzles and activities to keep hands and mind busy - Vitamin B1: wnl; RPR and Lyme are negative; B12 at 520 and TSH 1.9 within past few months in H chart - Head CT negative for acute pathology, only showing atrophy and chronic microvascular ischemic changes - Reinforced to staff to have room well-lit with windows open during the day; otherwise no overt delirium inducing causes identified, and unfortunately current status seems c/w baseline decline - Promote safe environment, optimize daytime/nighttime status with minimal interventions or disruptions overnight - Removed non-violent restraints and initiated 1:1, with hope of removing 1:1 as soon as possible for eventual transition to [facility]/memory unit - PT/OT when able #Constipation - If no BM within the next 2 days, consider making Miralax 17g scheduled for every other day - Continue to encourage good oral intake #AUDI / Hypokalemia #HTN, not at goal - Cr: 1.08, K+: 4.0, BP: well controlled - Resolved #Rash, lower chest - Ordered clotrimazole 1% cream to apply after shower, starting with a small amount to ensue good tolerance - resolved #BEATRIZ - suspect will not be compliant with CPAP, defer at this time #prostate cancerDx in 2013, under surveillance. Finasteride in place of dutasteride while in hospital. VTE ppx: Lovenox Dispo: will need to be off PRNs for 24-48hrs for facility to accept; continue medical optimization on med floor Admission and Anticipated Discharge Date Admission Date: June 18, 2025 Supervising Physician Co-Signing Physician Notes I personally examined the patient and verified [place] points of history and exam, discussed case, and agree with decision making and plan documented by Dr. Espana. Patient with agitation in setting of dementia. Episodic aggression today requiring zyprexa. Patient pending placement. Remains on 1:1. Rosa updated. Subjective Patient seen this AM, patient on 1:1 observation. 2 points restraints had to be briefly restarted this AM as patient became combative and was throwing punches at nursing staff. Patient required PRN IM Zyprexa 2.5mg dose, and after this he became much less agitated and restraints were removed. Patient remains hemodynamically stable and afebrile. Physical Exam Physical Exam: General: patient resting comfortably, NAD, non-toxic in appearance Skin: warm, dry, intact HEENT: NC/AT, anicteric sclera, conjunctiva without injection, moist mucus membranes Heart: +S1/S2, regular, no m/r/g Lungs: equal air entry bilaterally, no rales/rhonchi/wheezes Results & Data Results & Data Vital Signs (Past 12 Hours) Vital Signs Temp Pulse Resp BP Pulse Ox O2 Del Method 07/13/25 07:05 36.5 C 75 16 121/78 96 Room Air Resident Activity Tracking Resident Involvement: Resident Care Provided Care Provided: Adult Hospital Medicine
--- NOTE | 2025-07-14 09:47 | Hospitalist Progress Note ---
Date of Service July 14, 2025 Assessment & Plan (1) Dementia with agitation: (2) HTN (hypertension): (3) Obstructive sleep apnea of adult: Plan Nixon is an 80yo male with progressing dementia with agitation, acute kidney injury with hypokalemia, and HTN, requires continued admission for stabilization and optimization on medication regimen while pending placement. Required 2-point b/l UE restraints due to aggression and agitation. Pending placement: waitlist at [facility], no openings in foreseeable future. Also has a referral out to [facility], but they can't make a decision until pt is off restraints and 1:1 for 48 hours- did not require zyprexa IM prn since 3 evenings prior but has required restraints intermittently. Requires continued inpatient admission while pending placement which is contingent on medical optimization. #Dementia with agitation - Has become aggressive over the past few years, it is no longer safe for to live at home with pt Psychiatry consulted, appreciate recs: Advised by psych liaison to continue antipsychotic regimen based on IM availability for prn: zyprexa 10mg qHS, zyprexa 5mg qAM, keeping 2.5mg PO and IM BID prn for aggression Continue clonidine patch 0.2mg weekly Continue to give patient puzzles and activities to keep hands and mind busy - Vitamin B1: wnl; RPR and Lyme are negative; B12 at 520 and TSH 1.9 within past few months in H chart - Head CT negative for acute pathology, only showing atrophy and chronic microvascular ischemic changes - Reinforced to staff to have room well-lit with windows open during the day; otherwise no overt delirium inducing causes identified, and unfortunately current status seems c/w baseline decline - Promote safe environment, optimize daytime/nighttime status with minimal interventions or disruptions overnight - Removed non-violent restraints and initiated 1:1, with hope of removing 1:1 as soon as possible for eventual transition to [facility]/memory unit - PT/OT when able #Constipation - If no BM within the next 2 days, consider making Miralax 17g scheduled for every other day - Continue to encourage good oral intake #AUDI / Hypokalemia #HTN, not at goal - Cr: 1.08, K+: 4.0, BP: well controlled - Resolved #Rash, lower chest - Ordered clotrimazole 1% cream to apply after shower, starting with a small amount to ensue good tolerance - resolved #BEATRIZ - suspect will not be compliant with CPAP, defer at this time #prostate cancerDx in 2013, under surveillance. Finasteride in place of dutasteride while in hospital. VTE ppx: Lovenox Dispo: will need to be off PRNs for 24-48hrs for facility to accept; continue medical optimization on med floor Admission and Anticipated Discharge Date Admission Date: June 18, 2025 Supervising Physician Co-Signing Physician Notes I personally examined the patient and verified all [place] points of history and exam, discussed case, and agree with decision making with Dr Espana again no issues today. Walking the hallway with nursing. Vitals noted, walking, pleasant, conversationally confused, no distress. HEENT normocephalic atraumatic mucous membranes moist. Breathing unlabored no accessory muscle use good effort. Skin without rashes pallor or icterus. Neuro without focal deficits. Dementia with agitation. Continue current care. Continue reorientation and supportive care. appreciate case management efforts and he is still pending placement. Continue current care for now. Otherwise as above, pending placement. Subjective Patient seen this AM, seated with no acute complaints/concerns. patient on 1:1 observation. 2 points restraints removed, with some improvements in agitation, but with some attempts to leave his room. Patient remains hemodynamically stable and afebrile. Physical Exam Physical Exam: General: patient resting comfortably, NAD, non-toxic in appearance, answers questions appropriately. Skin: warm, dry, intact HEENT: NC/AT, anicteric sclera, conjunctiva without injection, moist mucus membranes. Heart: +S1/S2, regular, no m/r/g Lungs: equal air entry bilaterally, no rales/rhonchi/wheezes Abd: +BS, soft, NT/ND Ext: warm, no clubbing/cyanosis or edema Neuro: nonfocal, speech intact, no facial droop, moving all extremities. Results & Data Results & Data Vital Signs (Past 12 Hours) Vital Signs Temp Pulse Resp BP Pulse Ox O2 Del Method 07/14/25 07:21 55 L 120/79 95 Room Air 07/14/25 07:12 36.2 C L 58 L 16 127/80 92 Room Air 07/13/25 23:03 36.5 C 87 18 120/84 94 Room Air Resident Activity Tracking Resident Involvement: Resident Care Provided Care Provided: Adult Hospital Medicine
--- NOTE | 2025-07-14 13:12 | Billing Data ---
Date of Service July 14, 2025 Coding Level of Care Code 08953 SUB INP/OBS CARE
--- NOTE | 2025-07-15 08:54 | Hospitalist Progress Note ---
Date of Service July 15, 2025 Assessment & Plan (1) Dementia with agitation: (2) HTN (hypertension): (3) Obstructive sleep apnea of adult: Plan Nixon is an 80yo male with progressing dementia with agitation, acute kidney injury with hypokalemia, and HTN, requires continued admission for stabilization and optimization on medication regimen while pending placement. Required 2-point b/l UE restraints due to aggression and agitation. Pending placement: waitlist at [facility], no openings in foreseeable future. Also has a referral out to [facility], but they can't make a decision until pt is off restraints and 1:1 for 48 hours- did not require zyprexa IM prn since 3 evenings prior but has required restraints intermittently. Requires continued inpatient admission while pending placement which is contingent on medical optimization. #Dementia with agitation - Has become aggressive over the past few years, it is no longer safe for to live at home with pt Psychiatry consulted, appreciate recs: Advised by psych liaison to continue antipsychotic regimen based on IM availability for prn: zyprexa 10mg qHS, zyprexa 5mg qAM, keeping 2.5mg PO and IM BID prn for aggression Continue clonidine patch 0.2mg weekly Continue to give patient puzzles and activities to keep hands and mind busy - Vitamin B1: wnl; RPR and Lyme are negative; B12 at 520 and TSH 1.9 within past few months in H chart - Head CT negative for acute pathology, only showing atrophy and chronic microvascular ischemic changes - Reinforced to staff to have room well-lit with windows open during the day; otherwise no overt delirium inducing causes identified, and unfortunately current status seems c/w baseline decline - Promote safe environment, optimize daytime/nighttime status with minimal interventions or disruptions overnight - Removed non-violent restraints and initiated 1:1, with hope of removing 1:1 as soon as possible for eventual transition to assisted/memory unit - PT/OT when able #Constipation - If no BM within the next 2 days, consider making Miralax 17g scheduled for every other day - Continue to encourage good oral intake #AUDI / Hypokalemia #HTN, not at goal - Cr: 1.08, K+: 4.0, BP: well controlled - Resolved #Rash, lower chest - Ordered clotrimazole 1% cream to apply after shower, starting with a small amount to ensue good tolerance - resolved #BEATRIZ - suspect will not be compliant with CPAP, defer at this time #prostate cancerDx in 2013, under surveillance. Finasteride in place of dutasteride while in hospital. VTE ppx: Lovenox Dispo: will need to be off PRNs for 24-48hrs for facility to accept; continue medical optimization on med floor Admission and Anticipated Discharge Date Admission Date: June 18, 2025 Supervising Physician Co-Signing Physician Notes I personally examined the patient and verified all [place] points of history and exam, discussed case, and agree with decision making with Dr Espana again no issues today. sitting in chair today. Vitals noted, walking, pleasant, conversationally confused, no distress. HEENT normocephalic atraumatic mucous membranes moist. Breathing unlabored no accessory muscle use good effort. Skin without rashes pallor or icterus. Neuro without focal deficits. Dementia with agitation. Continue current care. Continue reorientation and supportive care. 1:1 as needed rather than continuous. appreciate case management efforts and he is still pending placement. Continue current care for now. Otherwise as above, pending placement. Subjective Patient seen this AM, standing in front of the exit to his room. Patient with no acute complaints/concerns other than leaving. Patient on 1:1 observation. 2 points restraints removed, with some improvements in agitation, but with some attempts to leave his room. Patient remains hemodynamically stable and afebrile. Physical Exam Physical Exam: General: patient resting comfortably, NAD, non-toxic in appearance, answers questions appropriately. Skin: warm, dry, intact HEENT: NC/AT, anicteric sclera, conjunctiva without injection, moist mucus membranes. Heart: +S1/S2, regular, no m/r/g Lungs: equal air entry bilaterally, no rales/rhonchi/wheezes Abd: +BS, soft, NT/ND Ext: warm, no clubbing/cyanosis or edema Neuro: nonfocal, speech intact, no facial droop, moving all extremities. Results & Data Results & Data Vital Signs (Past 12 Hours) Vital Signs Temp Pulse Resp BP Pulse Ox O2 Del Method 07/15/25 07:06 36.5 C 54 L 16 157/106 H 95 Room Air 07/15/25 00:23 87 15 141/102 H 94 Room Air 07/14/25 22:00 Room Air Resident Activity Tracking Resident Involvement: Resident Care Provided Care Provided: Adult Hospital Medicine
--- NOTE | 2025-07-15 13:46 | Billing Data ---
Date of Service July 15, 2025 Coding Level of Care Code 88498 SUB INP/OBS CARE
--- NOTE | 2025-07-15 13:47 | Billing Data ---
Date of Service July 15, 2025 Coding Level of Care Code 87665 SUB INP/OBS CARE
--- NOTE | 2025-07-16 08:43 | Hospitalist Progress Note ---
Date of Service July 16, 2025 Assessment & Plan (1) Dementia with agitation: (2) HTN (hypertension): (3) Obstructive sleep apnea of adult: Plan Nixon is an 80yo male with progressing dementia with agitation, acute kidney injury with hypokalemia, and HTN, requires continued admission for stabilization and optimization on medication regimen while pending placement. Required 2-point b/l UE restraints due to aggression and agitation. Pending placement: waitlist at [facility], no openings in foreseeable future. Also has a referral out to [facility], but they can't make a decision until pt is off restraints and 1:1 for 48 hours- did not require zyprexa IM prn since 3 evenings prior but has required restraints intermittently. Requires continued inpatient admission while pending placement which is contingent on medical optimization. #Dementia with agitation - Has become aggressive over the past few years, it is no longer safe for to live at home with pt Psychiatry consulted, appreciate recs: Advised by psych liaison to continue antipsychotic regimen based on IM availability for prn: zyprexa 10mg qHS, zyprexa 5mg qAM, keeping 2.5mg PO and IM BID prn for aggression Continue clonidine patch 0.2mg weekly Continue to give patient puzzles and activities to keep hands and mind busy - Vitamin B1: wnl; RPR and Lyme are negative; B12 at 520 and TSH 1.9 within past few months in H chart - Head CT negative for acute pathology, only showing atrophy and chronic microvascular ischemic changes - Reinforced to staff to have room well-lit with windows open during the day; otherwise no overt delirium inducing causes identified, and unfortunately current status seems c/w baseline decline - Promote safe environment, optimize daytime/nighttime status with minimal interventions or disruptions overnight - Removed non-violent restraints and initiated 1:1, with hope of removing 1:1 as soon as possible for eventual transition to retirement/memory unit - PT/OT when able #Constipation - If no BM within the next 2 days, consider making Miralax 17g scheduled for every other day - Continue to encourage good oral intake #AUDI / Hypokalemia #HTN, not at goal - Cr: 1.08, K+: 4.0, BP: well controlled - Resolved #Rash, lower chest - Ordered clotrimazole 1% cream to apply after shower, starting with a small amount to ensue good tolerance - resolved #BEATRIZ - suspect will not be compliant with CPAP, defer at this time #prostate cancerDx in 2013, under surveillance. Finasteride in place of dutasteride while in hospital. VTE ppx: Lovenox Dispo: will need to be off PRNs for 24-48hrs for facility to accept; continue medical optimization on med floor Admission and Anticipated Discharge Date Admission Date: June 18, 2025 Supervising Physician Co-Signing Physician Notes I personally examined the patient and verified all [place] points of history and exam, discussed case, and agree with decision making with Dr Espana no new problems no new needs identified. Vitals noted, walking, pleasant, conversationally confused, no distress. HEENT normocephalic atraumatic mucous membranes moist. Breathing unlabored no accessory muscle use good effort. Skin without rashes pallor or icterus. Neuro without focal deficits. Dementia with agitation. Continue current care. Continue reorientation and supportive care. 1:1 as needed rather than continuous. appreciate case management efforts and he is still pending placement. more calm recently Otherwise as above, pending placement. Subjective Patient seen this AM, standing in front of the exit to his room. Patient with no acute complaints/concerns other than leaving. Patient on 1:1 observation. 2 points restraints removed, with some improvements in agitation. Patient remains hemodynamically stable and afebrile. Physical Exam Physical Exam: General: patient resting comfortably, NAD, non-toxic in appearance, answers questions appropriately. Skin: warm, dry, intact HEENT: NC/AT, anicteric sclera, conjunctiva without injection, moist mucus membranes. Heart: +S1/S2, regular, no m/r/g Lungs: equal air entry bilaterally, no rales/rhonchi/wheezes Abd: +BS, soft, NT/ND Ext: warm, no clubbing/cyanosis or edema Neuro: nonfocal, speech intact, no facial droop, moving all extremities. Results & Data Results & Data Vital Signs (Past 12 Hours) Vital Signs Pulse Resp BP Pulse Ox O2 Del Method 07/16/25 08:16 56 L 132/84 07/16/25 07:59 69 16 164/108 H 94 Room Air Resident Activity Tracking Resident Involvement: Resident Care Provided Care Provided: Adult Hospital Medicine
--- NOTE | 2025-07-16 18:48 | Billing Data ---
Date of Service July 16, 2025 Coding Level of Care Code 61441 SUB INP/OBS CARE
--- NOTE | 2025-07-17 11:19 | Hospitalist Progress Note ---
Date of Service July 17, 2025 Assessment & Plan (1) Dementia with agitation: (2) HTN (hypertension): (3) Obstructive sleep apnea of adult: Plan Nixon is an 80yo male with progressing dementia with agitation, acute kidney injury with hypokalemia, and HTN, requires continued admission for stabilization and optimization on medication regimen while pending placement. Required 2-point b/l UE restraints due to aggression and agitation. Pending placement: waitlist at [facility], no openings in foreseeable future. Also has a referral out to [facility], but they can't make a decision until pt is off restraints and 1:1 for 48 hours- did not require zyprexa IM prn since 3 evenings prior but has required restraints intermittently. Requires continued inpatient admission while pending placement which is contingent on medical optimization. #Dementia with agitation - Has become aggressive over the past few years, it is no longer safe for to live at home with pt Psychiatry consulted, appreciate recs: Advised by psych liaison to continue antipsychotic regimen based on IM availability for prn: zyprexa 10mg qHS, zyprexa 5mg qAM, keeping 2.5mg PO and IM BID prn for aggression Continue clonidine patch 0.2mg weekly Continue to give patient puzzles and activities to keep hands and mind busy - Vitamin B1: wnl; RPR and Lyme are negative; B12 at 520 and TSH 1.9 within past few months in H chart - Head CT negative for acute pathology, only showing atrophy and chronic microvascular ischemic changes - Reinforced to staff to have room well-lit with windows open during the day; otherwise no overt delirium inducing causes identified, and unfortunately current status seems c/w baseline decline - Promote safe environment, optimize daytime/nighttime status with minimal interventions or disruptions overnight - Removed non-violent restraints and initiated 1:1, with hope of removing 1:1 as soon as possible for eventual transition to usp/memory unit - PT/OT when able #Constipation - If no BM within the next 2 days, consider making Miralax 17g scheduled for every other day - Continue to encourage good oral intake #AUDI / Hypokalemia #HTN, not at goal - Cr: 1.08, K+: 4.0, BP: well controlled - Resolved #Rash, lower chest - Ordered clotrimazole 1% cream to apply after shower, starting with a small amount to ensue good tolerance - resolved #BEATRIZ - suspect will not be compliant with CPAP, defer at this time #prostate cancerDx in 2013, under surveillance. Finasteride in place of dutasteride while in hospital. VTE ppx: Lovenox Dispo: will need to be off PRNs for 24-48hrs for facility to accept; continue medical optimization on med floor Admission and Anticipated Discharge Date Admission Date: June 18, 2025 Supervising Physician Co-Signing Physician Notes I personally examined the patient and verified all [place] points of history and exam, discussed case, and agree with decision making with Dr Espana no new problems no new needs identified. Still pending placement. Vitals noted, Sitting in his room, no distress. HEENT normocephalic atraumatic mucous membranes moist. Breathing unlabored no accessory muscle use good effort. Skin without rashes pallor or icterus. Neuro without focal deficits. Dementia with agitation. Continue current care. Continue reorientation and supportive care. more calm recently. Pending placement. Otherwise as above, pending placement. Subjective Patient seen this AM, standing in front of the exit to his room. Patient with no acute complaints/concerns other than leaving. Patient on 1:1 observation. Patient remains hemodynamically stable and afebrile. Physical Exam Physical Exam: General: patient resting comfortably, NAD, non-toxic in appearance, answers questions appropriately. Skin: warm, dry, intact HEENT: NC/AT, anicteric sclera, conjunctiva without injection, moist mucus membranes. Heart: +S1/S2, regular, no m/r/g Lungs: equal air entry bilaterally, no rales/rhonchi/wheezes Abd: +BS, soft, NT/ND Ext: warm, no clubbing/cyanosis or edema Neuro: nonfocal, speech intact, no facial droop, moving all extremities. Results & Data Results & Data Vital Signs (Past 12 Hours) Vital Signs Temp Pulse Resp BP Pulse Ox O2 Del Method 07/17/25 07:08 36.7 C 85 16 132/98 95 Room Air Resident Activity Tracking Resident Involvement: Resident Care Provided Care Provided: Adult Hospital Medicine
--- NOTE | 2025-07-17 13:32 | Billing Data ---
Date of Service July 17, 2025 Coding Level of Care Code 58688 SUB INP/OBS CARE
--- NOTE | 2025-07-18 07:10 | Hospitalist Progress Note ---
Date of Service July 18, 2025 Assessment & Plan (1) Dementia with agitation: (2) HTN (hypertension): (3) Obstructive sleep apnea of adult: Plan Nixon is an 80yo male with progressing dementia with agitation, acute kidney injury with hypokalemia, and HTN, requires continued admission for stabilization and optimization on medication regimen while pending placement. Required 2-point b/l UE restraints due to aggression and agitation. Pending placement: waitlist at [facility], no openings in foreseeable future. Also has a referral out to [facility], but they can't make a decision until pt is off restraints and 1:1 for 48 hours- did not require zyprexa IM prn since 3 evenings prior but has required restraints intermittently. Requires continued inpatient admission while pending placement which is contingent on medical optimization. #Dementia with agitation - Has become aggressive over the past few years, it is no longer safe for to live at home with pt Psychiatry consulted, appreciate recs: Advised by psych liaison to continue antipsychotic regimen based on IM availability for prn: zyprexa 10mg qHS, zyprexa 5mg qAM, keeping 2.5mg PO and IM BID prn for aggression Continue clonidine patch 0.2mg weekly Continue to give patient puzzles and activities to keep hands and mind busy - Vitamin B1: wnl; RPR and Lyme are negative; B12 at 520 and TSH 1.9 within past few months in H chart - Head CT negative for acute pathology, only showing atrophy and chronic microvascular ischemic changes - Reinforced to staff to have room well-lit with windows open during the day; otherwise no overt delirium inducing causes identified, and unfortunately current status seems c/w baseline decline - Promote safe environment, optimize daytime/nighttime status with minimal interventions or disruptions overnight - Removed non-violent restraints and initiated 1:1, with hope of removing 1:1 as soon as possible for eventual transition to intermediate/memory unit - PT/OT when able #Constipation - If no BM within the next 2 days, consider making Miralax 17g scheduled for every other day - Continue to encourage good oral intake #AUDI / Hypokalemia #HTN, not at goal - Cr: 1.08, K+: 4.0, BP: well controlled - Resolved #Rash, lower chest - Ordered clotrimazole 1% cream to apply after shower, starting with a small amount to ensue good tolerance - resolved #BEATRIZ - suspect will not be compliant with CPAP, defer at this time #prostate cancerDx in 2013, under surveillance. Finasteride in place of dutasteride while in hospital. VTE ppx: Lovenox Dispo: will need to be off PRNs for 24-48hrs for facility to accept; continue medical optimization on med floor Admission and Anticipated Discharge Date Admission Date: June 18, 2025 Subjective Patient seen this AM, standing in front of the exit to his room. Patient with no acute complaints/concerns other than leaving. Patient on 1:1 observation. Patient remains hemodynamically stable and afebrile. Physical Exam Physical Exam: General: patient resting comfortably, NAD, non-toxic in appearance, answers questions appropriately. Skin: warm, dry, intact HEENT: NC/AT, anicteric sclera, conjunctiva without injection, moist mucus membranes. Heart: +S1/S2, regular, no m/r/g Lungs: equal air entry bilaterally, no rales/rhonchi/wheezes Abd: +BS, soft, NT/ND Ext: warm, no clubbing/cyanosis or edema Neuro: nonfocal, speech intact, no facial droop, moving all extremities. Results & Data Results & Data Vital Signs (Past 12 Hours) Vital Signs Pulse BP O2 Del Method 07/17/25 20:02 84 122/90 07/17/25 20:00 Room Air Resident Activity Tracking Resident Involvement: Resident Care Provided Care Provided: Adult Hospital Medicine
--- NOTE | 2025-07-18 14:28 | Hospitalist Progress Note ---
Date of Service July 18, 2025 Assessment & Plan (1) Dementia with agitation: (2) HTN (hypertension): (3) Obstructive sleep apnea of adult: Plan Nixon is an 80yo male with progressing dementia with agitation, acute kidney injury with hypokalemia, and HTN, requires continued admission for stabilization and optimization on medication regimen while pending placement. Required 2-point b/l UE restraints due to aggression and agitation. Pending placement: waitlist at [facility], no openings in foreseeable future. Also has a referral out to [facility], but they can't make a decision until pt is off restraints and 1:1 for 48 hours- did not require zyprexa IM prn since 3 evenings prior but has required restraints intermittently. Requires continued inpatient admission while pending placement which is contingent on medical optimization. #Dementia with agitation - Has become aggressive over the past few years, it is no longer safe for to live at home with pt Psychiatry consulted, appreciate recs: Advised by psych liaison to continue antipsychotic regimen based on IM availability for prn: zyprexa 10mg qHS, zyprexa 5mg qAM, keeping 2.5mg PO and IM BID prn for aggression Continue clonidine patch 0.2mg weekly Continue to give patient puzzles and activities to keep hands and mind busy - Vitamin B1: wnl; RPR and Lyme are negative; B12 at 520 and TSH 1.9 within past few months in H chart - Head CT negative for acute pathology, only showing atrophy and chronic microvascular ischemic changes - Reinforced to staff to have room well-lit with windows open during the day; otherwise no overt delirium inducing causes identified, and unfortunately current status seems c/w baseline decline - Promote safe environment, optimize daytime/nighttime status with minimal interventions or disruptions overnight - Awaiting placement #Constipation - follow and treat as needed #AUDI / Hypokalemia #HTN, not at goal - AUDI Resolved, appears to be asymptomatic with hypertension not at goalat t imes he declines medications, no need to force given his blood pressure ranges and lack of symptoms/vascular endpoints #BEATRIZ - suspect will not be compliant with CPAP, defer at this time #prostate cancerDx in 2013, under surveillance. Finasteride in place of dutasteride while in hospital. VTE ppx: Lovenox [facility]aiting SNF Admission and Anticipated Discharge Date Admission Date: June 18, 2025 Subjective No new problems. Sitting in a chair. Nurse with him notices no problems and denies any acute needs. Physical Exam Physical Exam: General he is awake and alert sitting in a chair there is mostly completed puzzle on his nightstand. There is to be in no distress. HEENT normocephalic atraumatic mucous membranes moist. Breathing unlabored no accessory muscle use good effort. Skin without rashes pallor or icterus. Neuro without focal deficits. Results & Data Results & Data Vital Signs (Past 12 Hours) Vital Signs Temp Pulse Resp BP Pulse Ox O2 Del Method 07/18/25 09:06 113/74 07/18/25 07:04 97.5 F L 65 16 98 Room Air PG Care Time/CCT Total # of Minutes Spent Total Time Spent with Patient: Total time spent is greater than 50% in coordination of care (as documented) at patient's floor/unit and/or counseling patient: Coding Level of Care Code 55714 SUB INP/OBS CARE 11/30MIN Diagnoses Dementia with agitation F03.911 HTN (hypertension) I10 Obstructive sleep apnea of adult G47.33
--- NOTE | 2025-07-19 06:55 | Hospitalist Progress Note ---
Date of Service July 19, 2025 Assessment & Plan (1) Dementia with agitation: (2) HTN (hypertension): (3) Obstructive sleep apnea of adult: Plan Nixon is an 80yo male with progressing dementia with agitation, acute kidney injury with hypokalemia, and HTN, requires continued admission for stabilization and optimization on medication regimen while pending placement. Required 2-point b/l UE restraints due to aggression and agitation. Pending placement: waitlist at [facility], no openings in foreseeable future. Also has a referral out to [facility], but they can't make a decision until pt is off restraints and 1:1 for 48 hours- did not require zyprexa IM prn since 3 evenings prior but has required restraints intermittently. Requires continued inpatient admission while pending placement which is contingent on medical optimization. #Dementia with agitation Vitamin B1: wnl; RPR and Lyme are negative; B12 at 520 and TSH 1.9 within past few months in H chart. Head CT negative for acute pathology, only showing atrophy and chronic microvascular ischemic changes - Has become aggressive over the past few years, it is no longer safe for to live at home with pt Psychiatry consulted, appreciate recs: Advised by psych liaison to continue antipsychotic regimen based on IM availability for prn: zyprexa 10mg qHS, zyprexa 5mg qAM, keeping 2.5mg PO and IM BID prn for aggression Continue clonidine patch 0.2mg weekly Continue to give patient puzzles and activities to keep hands and mind busy - Reinforced to staff to have room well-lit with windows open during the day; otherwise no overt delirium inducing causes identified, and unfortunately current status seems c/w baseline decline - Promote safe environment, optimize daytime/nighttime status with minimal interventions or disruptions overnight - Continue 11/06 - CM working on placement. Last CM from 07/18 reflects: If able to note pt is not having aggressive behaviors will be able to begin making referrals for placement. Will remain here until able to find an accepting facility. #Constipation No current complaints - follow and treat as needed #AUDI / Hypokalemia #HTN, not at goal - AUDI Resolved, appears to be asymptomatic with hypertension not at goalat times he declines medications, no need to force given his blood pressure ranges and lack of symptoms/vascular endpoints #BEATRIZ - Defer CPAP at this time due to pt noncompliance #prostate cancerDx in 2012, under surveillance. Finasteride in place of dutasteride while in hospital. VTE ppx: Lovenox dispositionawaiting SNF Admission and Anticipated Discharge Date Admission Date: June 18, 2025 Supervising Physician Co-Signing Physician Notes I personally examined the patient and verified all [place] points of history and exam, discussed case, and agree with decision making with Dr Espana no new problems no new needs identified. took a walk, now sleeping in the chair. Vitals noted, Sitting in his room, no distress. HEENT normocephalic atraumatic mucous membranes moist. Breathing unlabored no accessory muscle use good effort. Skin without rashes pallor or icterus. Neuro without focal deficits. Dementia with agitation. Continue current care. Continue reorientation and supportive care. Doing well given the situation. Pending placement. Otherwise as above, pending placement. Subjective Pt is a 80 yo male who presents on admission day 31. Pt was awake and alert sitting at EOB when provider arrived. Pt answers questions, half time appropriately. Pt was cooperative to exam. 11/06 attendant in room reports no acute overnight events. Nurse reports pt refuses to take his meds and vitals unless pt's is present. No severe agitation noted. Denies CP, SOB, headaches, dizziness, abdominal pain, N/V/D/C, dysuria, new arthralgias/myalgias, changes in vision/hearing/sensation Review of Systems Review of Systems: As per HPI Physical Exam Physical Exam: Gen: NAD HENT: Normocephalic, atraumatic. External ear without deformities. Trachea midline, no thyromegaly Cardio: RRR, no murmurs or clicks. Resp: CTAB, Equal bilateral chest rise, no increased work of breathing GI: Non-distended, soft, non-tender, normoactive bowel sounds in all 4 quadrants MSK: Moving all 4 extremities independently Skin: Dry, of normal skin tone, no rashes noted on exposed skin Neuro: Oriented to self. Follows commands, answers questions 50% of time Results & Data Results & Data Vital Signs (Past 12 Hours) Vital Signs O2 Del Method 07/18/25 20:00 Room Air Resident Activity Tracking Resident Involvement: Resident Care Provided Care Provided: Adult Hospital Medicine
--- NOTE | 2025-07-19 17:15 | Billing Data ---
Date of Service July 19, 2025 Coding Level of Care Code 91956 SUB INP/OBS CARE
--- NOTE | 2025-07-20 06:58 | Hospitalist Progress Note ---
Date of Service July 20, 2025 Assessment & Plan (1) Dementia with agitation: (2) HTN (hypertension): (3) Obstructive sleep apnea of adult: Plan Nixon is an 80yo male with progressing dementia with agitation, acute kidney injury with hypokalemia, and HTN, requires continued admission for stabilization and optimization on medication regimen while pending placement. Required 2-point b/l UE restraints due to aggression and agitation. Pending placement: waitlist at [facility], no openings in foreseeable future. Also has a referral out to [facility], but they can't make a decision until pt is off restraints and 1:1 for 48 hours- did not require zyprexa IM prn since 3 evenings prior but has required restraints intermittently. Requires continued inpatient admission while pending placement which is contingent on medical optimization. #Dementia with agitation Vitamin B1: wnl; RPR and Lyme are negative; B12 at 520 and TSH 1.9 within past few months in H chart. Head CT negative for acute pathology, only showing atrophy and chronic microvascular ischemic changes - Has become aggressive over the past few years, it is no longer safe for to live at home with pt Psychiatry consulted, appreciate recs: Advised by psych liaison to continue antipsychotic regimen based on IM availability for prn: zyprexa 10mg qHS, zyprexa 5mg qAM, keeping 2.5mg PO and IM BID prn for aggression Continue clonidine patch 0.2mg weekly Continue to give patient puzzles and activities to keep hands and mind busy - Reinforced to staff to have room well-lit with windows open during the day; otherwise no overt delirium inducing causes identified, and unfortunately current status seems c/w baseline decline - Promote safe environment, optimize daytime/nighttime status with minimal interventions or disruptions overnight - Continue 11/06 - CM working on placement. Last CM from 07/18 reflects: If able to note pt is not having aggressive behaviors will be able to begin making referrals for placement. Will remain here until able to find an accepting facility. #Constipation No current complaints - follow and treat as needed #AUDI / Hypokalemia #HTN - AUDI Resolved - BP has been stable over the last 48 hours, pt has been intermittently taking meds. -Continue oral meds as pt will take - Continue Clonidine patch #BEATRIZ - Defer CPAP at this time due to pt noncompliance #prostate cancerDx in 2012, under surveillance. Venkataasteride in place of dutasteride while in hospital. VTE ppx: Lovenox dispositionawaiting SNF Admission and Anticipated Discharge Date Admission Date: June 18, 2025 Supervising Physician Co-Signing Physician Notes I personally examined the patient and verified all [place] points of history and exam, discussed case, and agree with decision making with Dr Delgadillo no new problems no new needs identified. sitting on the side of the bed and smiling. Vitals noted, Sitting in his room, no distress. HEENT normocephalic atraumatic mucous membranes moist. Breathing unlabored no accessory muscle use good effort. Skin without rashes pallor or icterus. Neuro without focal deficits. Dementia with agitation. Continue current care. Continue reorientation and supportive care. Doing well given the situation. Pending placement. case management efforts appreciated Otherwise as above, pending placement. Subjective Pt is a 80 yo male who presents on admission day 32. Pt was awake and alert sitting at EOB when provider arrived. Pt answers questions with 1-2 word answers, appropriately. Pt was cooperative to exam. 11/06 attendant in room reports no agitation events overnight or this morning. Nurse reports pt was agreeable to taking meds last night and walked the unit with his attendant yesterday afternoon. Denies CP, SOB, headaches, dizziness, abdominal pain, N/V/D/C, dysuria, new arthralgias/myalgias, changes in vision/hearing/sensation Review of Systems Review of Systems: As per HPI Physical Exam Physical Exam: Gen: NAD HENT: Normocephalic, atraumatic. External ear without deformities. Trachea midline, no thyromegaly Cardio: RRR, no murmurs or clicks. Resp: CTAB, Equal bilateral chest rise, no increased work of breathing GI: Non-distended, soft, non-tender, normoactive bowel sounds in all 4 quadrants MSK: Moving all 4 extremities independently Skin: Dry, of normal skin tone, no rashes noted on exposed skin Neuro: Oriented to self. Follows commands, answers questions 50% of time. No agitation noted during exam today Resident Activity Tracking Resident Involvement: Resident Care Provided Care Provided: Adult [facility]
--- NOTE | 2025-07-20 14:06 | Billing Data ---
Date of Service July 20, 2025 Coding Level of Care Code 77472 SUB INP/OBS CARE
--- NOTE | 2025-07-21 07:32 | Hospitalist Progress Note ---
Date of Service July 21, 2025 Assessment & Plan (1) Dementia with agitation: (2) HTN (hypertension): (3) Obstructive sleep apnea of adult: Plan Nixon is an 80yo male with progressing dementia with agitation, AUDI with hypokalemia, and HTN, requires continued admission for stabilization and optimization on medication regimen while pending placement. Required 2-point b/l UE restraints due to aggression and agitation. Pending placement: waitlist at [facility], no openings in foreseeable future. Also has a referral out to [facility], but they can't make a decision until pt is off restraints and 1:1 for 48 hours. This AM he was little aggressive, however got better with re- orientation. Titrating scheduled Zyprexa would be reasonable at this point rather than giving intermittent IM dose, hence reached out to behavioral team. Requires continued inpatient admission while pending placement which is contingent on medical optimization.Last IM zyprexa was 5 days back. Family was involved in discussion this AM. #Aggression 2/2 Severe Dementia - Stable labs including B1, B12, TSH Head CT negative for acute pathology. - Psychiatry consulted, appreciate recs: [facility] Zyprexa 10mg QHS+ 5mg QAM, PRN 2.5mg PO and IM BID for aggression( Last IM dose 07/16) Continue clonidine patch 0.2mg/ 24 hour release, Q week. Continue reorientation, activity involvement Consider pain medication like lidocaine patch. Increasing dose of zyprexa would be last alternative as this does not have much evidence that it lowers frequency of aggression. - Promote safe environment,minimal interventions or disruptions overnight - Continue / - CM working on placement. No new updates today. -PT: Not candidate for Skilled PT, will f.u if needed. #Constipation Stable on regimen now. #HTN -BP: 126/83 today ( Stable in last 48 hours). -Continue Amlodipine 5 mg QAM. -Continue Clonidine patch VTE ppx: Lovenox Dispo awaiting SNF Admission and Anticipated Discharge Date Admission Date: June 18, 2025 Supervising Physician Co-Signing Physician Notes I personally examined the patient and verified all [place] points of history and exam, discussed case, and agree with decision making with Dr Hodgson no new problems no new needs identified. sitting in a chair present in the room. Did not get his medications till a bit later this morning. Having some issues with being redirected however later in the day with recheck the patient was much improved.. Vitals noted, Sitting in his room, no distress. HEENT normocephalic atraumatic mucous membranes moist. Breathing unlabored no accessory muscle use good effort. Skin without rashes pallor or icterus. Neuro without focal deficits. Dementia with agitation. Continue current care. Continue reorientation and supportive care. Doing well given the situation. Pending placement. case management efforts appreciated Otherwise as above, pending placement. Subjective 80 year admitted with severe cognitive deficit with dementia. Admitted with 1:1 observation, nurse on bedside mentioned he was little aggressive this morning, was hitting the door. She was not able to give med. Got better with re- orientation. Mr. Sarmiento was calm, sitting in chair when I met him. He was not responsive to my questions though. Last night was stable, he slept baseline per nurse, eating baseline too. Review of Systems Review of Systems: As per HPI Physical Exam Physical Exam: Constitutional: Well appearing, No acute distress, PILCCOD: Negative HEENT: Atraumatic, Normocephalic, No conjunctival injection CVS: Looks well perfused Respiratory: No increased work of breathing GI: Soft, Nondistended+ MSK: No gross deformities noted Skin: Looks perfused Neuro/ Psych: Baseline cognition, No focal deficit. Not Oriented to TPP Resident Activity Tracking Resident Involvement: Resident Care Provided Care Provided: Adult Hospital Medicine
--- NOTE | 2025-07-21 12:47 | Psychiatric Progress Note ---
Date of Service July 21, 2025 Impression / Recommendations Impression Diagnostically consistent with dementia with behavioral disturbance and seems low suspicion at this point for any co-occurring delirium process. Unclear based on chart review what type of dementia he has, suspect Alzheimer's is top differential given his memantine and donepezil. Goal in dementia is to avoid medication management of behaviors if possible by maximizing non-pharmacologic strategies for behavioral management. However, given worsening agitation/aggression use of antipsychotics is warranted given risk/benefit profile favors treatment. Note all antipsychotic medications carry black box warning for increased risk of all-cause mortality in setting of dementia. The patient's behavioral disturbances were unresponsive to Risperdal and Seroquel. Improvements seen with olanzapine. There seems to be a pattern of behavioral disturbances occurring in opposition to boundaries set by staff.In this case, emergent medication can manage imminent danger to self or others but would do little to resolved the behavioral disturbances themselves. Outbursts of this type require a biopsychosocial focused intervention plan. Maintaining daily routines/structure as well as routine interventions may limit the frequency of these behavioral disturbances. The patient is also notably sleeping throughout the day with increased disturbances at night. Recommend opening the blinds in the morning and engaging the patient throughout the day to support/maintain the natural circadian rhythm and minimize disturbances resulting from sun-downing related disorientation. Abilify has shown some potential, in small studies, to be favored for dementia with behavioral disturbance though it is less sedating which can make management of sundowning/overnight behaviors more challenging. Also wonder about his past hobbies and career, encourage distraction activities during the day that may interest him. A: Improving significantly in terms of lessening of agitation since last assessment on 06/26/25 but ongoing periods of verbal escalation and agitation at times. Continues to refuse some of his medications but has been taking the olanzapine. Difficult to know if further medication adjustments would be helpful versus further clarification of potential contributing factors to his periods of escalation. If a pattern emerges regarding timing of agitation would consider option of moving up morning dose of olanzapine (i.e. to 6am) or adding 5mg to morning or evening dose depending on when episodes of agitation most frequently occur. Consider alternative means of addressing his back pain such as heating knapp which he may be more agreeable to using. Additionally would limit nursing interventions as much as possible as it seems that vital sign checks and pulse ox seem to increase agitation. Overall, I spent a total of 50 minutes with this case including review of chart records, review of labwork, direct evaluation of the patient at bedside, counseling the patient, discussion of the patient with the hospitalist provider, discussion with the psychiatric liason during clinical rounds and review of collateral history from the family and documentation in the electronic health record. 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 Olanzapine 10mg HS --> 15mg HS and continue olanzapine 5mg qAM Interval History Identifying Information Nixon Sarmiento is an 80-year-old male with past medical history of dementia with agitation, BEATRIZ, HTN, prostate cancer diagnosed in 2012 under surveillance admitted medically due to increased support needs. Psychiatry consulted for medication recommendations for agitation. Chief Complaint "My mother". Subjective Subjective Patient was seen & assessed and interval progress reviewed. Per chart review periods of verbal agitation overnight and increased this morning. Per RN notes he reported back pain but hasn't been accepting of lidocaine patch or po options. Today he was seen midday where he is dressed, sitting in a chair and with his and 1-on-1 sitting nearby. He was listening to music and is calm and friendly when I see him. He thinks his is his mother and introduces her as such. He makes a few statements but was largely quiet, listening while I spoke to his . She reviewed that he tends to enjoy listening to music and she brought in a lot of CDs. He was able to walk a few laps with the 1-on-1 in the hooper this morning. Physical Exam Vital Signs (Past 24 Hours) Last Vital Signs Temp 36.4 C L 07/19/25 16:00 Pulse 62 07/21/25 08:53 Resp 16 07/20/25 09:22 BP 126/83 07/19/25 16:00 Pulse Ox 96 07/21/25 08:53 O2 Del Method Room Air 07/21/25 08:53 O2 Flow Rate 2 06/22/25 14:55 Results & Data ([facility]) Current Inpatient Medications Current Inpatient Medications: Current Inpatient Medications Acetaminophen (Acetaminophen 325 Mg Tab) 650 mg PO Q4H PRN PRN Reason: Pain or Fever Stop: 08/16/25 21:31 Last Admin: 07/20/25 20:44 Dose: 650 mg Amlodipine Besylate (Amlodipine Besylate 5 Mg Tab) 5 mg PO QAM [facility] Stop: 08/16/25 08:59 Last Admin: 07/21/25 10:26 Dose: 5 mg Bisacodyl (Bisacodyl 10 Mg Supp) 10 mg [place] DAILY PRN PRN Reason: Constipation Stop: 08/16/25 07:08 Last Admin: 07/09/25 11:32 Dose: 10 mg Clonidine HCl (Clonidine Hcl 0.2 Mg/24 Hr Transderm Sys) 1 patch TD Q7D [facility] Stop: 08/16/25 12:59 Last Admin: 07/14/25 13:52 Dose: 1 patch Clotrimazole (Clotrimazole 1% Cr 15 Gm Tube) 1 appln EXT DAILY PRN PRN Reason: Rash Stop: 08/16/25 15:51 Docusate Sodium (Docusate Sodium 100 Mg Cap) 100 mg PO DAILY PRN PRN Reason: Constipation Stop: 08/16/25 07:08 Last Admin: 07/19/25 11:05 Dose: 100 mg Enoxaparin Sodium (Enoxaparin Inj 40 Mg/0.4 Ml Syr) 40 mg SQ Q24H [facility] Stop: 08/16/25 05:59 Last Admin: 07/21/25 06:05 Dose: Not Given Finasteride (Finasteride 5 Mg Tab) 5 mg PO QAM [facility] Stop: 08/16/25 11:44 Last Admin: 07/21/25 10:26 Dose: 5 mg Hydralazine HCl (Hydralazine Hcl 20 Mg/Ml Vial) 5 mg IV Q8H PRN PRN Reason: Hypertension Stop: 08/16/25 09:42 Lidocaine (Lidocaine 5% 1 Patch) 1 patch TD QAM [facility] Stop: 08/11/25 10:59 Last Admin: 07/21/25 11:04 Dose: 1 patch Melatonin (Melatonin 3 Mg Tab) 3 mg PO HS PRN PRN Reason: Sleep Stop: 08/16/25 21:31 Last Admin: 07/20/25 20:44 Dose: 3 mg Memantine (Memantine Hcl 5 Mg Tab) 5 mg PO DAILY [facility] Stop: 08/10/25 08:59 Last Admin: 07/21/25 10:25 Dose: 5 mg Miscellaneous (Remove Clonidine Patch) 1 each N/A CQWK [facility] Stop: 08/16/25 12:59 Last Admin: 07/14/25 13:51 Dose: 1 each Miscellaneous (Check Clonidine Patch Placement) 1 each N/A QS [facility] Stop: 08/16/25 15:59 Last Admin: 07/21/25 10:27 Dose: Not Given Miscellaneous (Remove Lidoderm Patch) 1 each N/A DAILY@2100 [facility] Stop: 08/11/25 20:59 Last Admin: 07/20/25 22:40 Dose: Not Given Olanzapine (Olanzapine 10 Mg/2.1 Ml Sdv) 2.5 mg IM BID PRN PRN Reason: Agitation Stop: 08/16/25 19:38 Last Admin: 07/16/25 19:54 Dose: 2.5 mg Olanzapine (Olanzapine 10 Mg Tab) 10 mg PO HS [facility] Stop: 08/16/25 20:59 Last Admin: 07/20/25 20:43 Dose: 10 mg Olanzapine (Olanzapine 5 Mg Tablet) 5 mg PO QAM [facility] Stop: 08/16/25 08:59 Last Admin: 07/21/25 10:28 Dose: 5 mg Olanzapine (Olanzapine 2.5 Mg Tab) 2.5 mg PO BID PRN PRN Reason: Agitation Stop: 08/16/25 15:09 Last Admin: 07/08/25 09:21 Dose: 2.5 mg Polyethylene Glycol (Polyethylene (Miralax) 17 Gm Pack) 17 gm PO Q2D [facility] Stop: 08/16/25 07:14 Last Admin: 07/21/25 12:10 Dose: 17 gm Psyllium Hydrophilic Mucilloid (Psyllium Husk 4gm Packet) 4 gm PO QAM [facility] Stop: 08/16/25 18:59 Last Admin: 07/21/25 10:29 Dose: Not Given Sennosides (Senna 8.6 Mg Tab) 8.6 mg PO QAM [facility] Stop: 08/16/25 15:44 Last Admin: 07/21/25 11:17 Dose: 8.6 mg Sertraline HCl (Sertraline Hcl 50 Mg Tablet) 50 mg PO DAILY [facility] Stop: 08/16/25 08:59 Last Admin: 07/21/25 10:25 Dose: 50 mg
--- NOTE | 2025-07-22 07:17 | Hospitalist Progress Note ---
Date of Service July 22, 2025 Assessment & Plan (1) Dementia with agitation: (2) HTN (hypertension): (3) Obstructive sleep apnea of adult: Plan Nixon is an 80yo male with progressing dementia with agitation, AUDI with hypokalemia, and HTN, requires continued admission for stabilization and optimization on medication regimen while pending placement. Required 2-point b/l UE restraints due to aggression and agitation. Pending placement: waitlist at [facility], no openings in foreseeable future. Also has a referral out to [facility], but they can't make a decision until pt is off restraints and 1:1 for 48 hours. This AM he was little aggressive, however got better with re- orientation. Titrating scheduled Zyprexa would be reasonable at this point rather than giving intermittent IM dose, hence reached out to behavioral team. Requires continued inpatient admission while pending placement which is contingent on medical optimization.Last IM zyprexa was 5 days back. Family was involved in discussion this AM. #Aggression 2/2 Severe Dementia - Stable labs including B1, B12, TSH Head CT negative for acute pathology. - Psychiatry consulted, appreciate recs: [facility] Zyprexa 10mg QHS+ 5mg QAM, PRN 2.5mg PO and IM BID for aggression( Last IM dose 07/16) Continue clonidine patch 0.2mg/ 24 hour release, Q week. Continue reorientation, activity involvement Consider pain medication like lidocaine patch. Increasing dose of zyprexa would be last alternative as this does not have much evidence that it lowers frequency of aggression. - Promote safe environment,minimal interventions or disruptions overnight - Continue / - CM working on placement. No new updates today. -PT: Not candidate for Skilled PT, will f.u if needed. #Constipation Stable on regimen now. #HTN -BP: 126/83 today ( Stable in last 48 hours). -Continue Amlodipine 5 mg QAM. -Continue Clonidine patch VTE ppx: Lovenox Dispo awaiting SNF Admission and Anticipated Discharge Date Admission Date: June 18, 2025 Supervising Physician Co-Signing Physician Notes I personally examined the patient and verified all [place] points of history and exam, discussed case, and agree with decision making with Dr Hodgson PGY 2 no new problems no new needs identified. There is no family present at this meeting. 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 Continues having some issues with being redirected . Vitals noted, Sitting in his room, no distress. HEENT normocephalic atraumatic mucous membranes moist. Breathing unlabored no accessory muscle use good effort. Skin without rashes pallor or icterus. Neuro without focal deficits. Dementia with agitation. Continue current care. Continue reorientation and supportive care. Doing well given the situation. Pending placement. case management efforts appreciated Otherwise as above, pending placement. Subjective 80 year admitted with severe cognitive deficit with dementia. Admitted with 1:1 observation, nurse on bedside mentioned he has been calm this morning.No significant OG issue, slept baseline. RN was not able to give his oral med this morning, bit earlier. Mr. Sarmiento was calm, sitting in chair calmly when I met him. I tried to talk about his visit to [place] and [place] like we talked yesterday, he was not able to answer like he was responding little bit in front of his . RN mentioned he get little more stimulated when his is here, even though knows boundaries. Music helps him get more calmer, so they have been trying that frequently. Whenever he is aggressive he tries to leave room, hence hits door, however has not been threatening to our staffs recently. He is very picky eater, does not complete full meal, however snacks a lot throughout day. He eats better when is around. This morning he was little more sleepy than yesterday per RN. Review of Systems Review of Systems: As per HPI Physical Exam Physical Exam: Constitutional: Well appearing, No acute distress, PILCCOD: Negative HEENT: Atraumatic, Normocephalic, No conjunctival injection CVS: Looks well perfused Respiratory: No increased work of breathing GI: Soft, Nondistended+ MSK: No gross deformities noted Skin: Looks perfused Neuro/ Psych: Baseline cognition, No focal deficit. Not Oriented to TPP Results & Data Results & Data Vital Signs (Past 12 Hours) Vital Signs Temp Pulse Resp BP Pulse Ox O2 Del Method 07/22/25 07:10 36.2 C L 64 16 110/65 95 Room Air 07/21/25 23:00 36.3 C L 75 16 139/91 93 Room Air Resident Activity Tracking Resident Involvement: Resident Care Provided Care Provided: Adult Hospital Medicine
--- NOTE | 2025-07-22 07:24 | Billing Data ---
Date of Service July 22, 2025 Coding Level of Care Code 65590 INT INP/OBS CARE
[2025-07-22 11:47] LABS: Hematocrit (blood only) 37.6 % (42.0-52.0); Hemoglobin 13.0 g/dl (14.0-18.0); Immature Granulocytes # (auto) 0.05 K/uL (0.01-0.20); Immature Granulocytes % (auto) 0.6 %; Mean Corpuscular Hemoglobin 31.0 pg (25.0-34.0); Mean Corpuscular Volume 89.5 fL (80.0-100.0); Platelet Count 234 K/uL (130-400); RDW Standard Deviation 42.2 fL (36.4-46.3); Red Blood Count 4.20 M/uL (4.70-6.10); White Blood Count 8.10 K/ul (4.8-10.8)
[2025-07-22 12:06] LABS: Albumin Level 3.6 gm/dl (3.4-5.0); Anion Gap 7.0 (3-11); Bilirubin,Total 1.2 mg/dl (0.2-1.0); Calcium 9.5 mg/dl (8.6-10.3); Carbon Dioxide 30.0 mmol/L (21-32); Chloride 101.0 mmol/L (98-107); Potassium 3.6 mmol/L (3.5-5.1); Sodium 138.0 mmol/L (136-145)
[2025-07-22 12:12] LABS: Alanine Aminotransferase 11.0 U/L (7-52); Albumin Globulin Ratio 1.3 (0.9-2); Alkaline Phosphatase 70.0 U/L (34-104); Blood Urea Nitrogen 18.0 mg/dl (6-23); Creatinine Clr Calc Pharmacy 68.6 ml/min; Globulin 2.8 gm/dl (2.5-4.0); Glucose 110.0 mg/dl (70-99(Fasting)); Total Protein 6.4 gm/dl (6.0-8.3)
--- NOTE | 2025-07-22 13:59 | Billing Data ---
Date of Service July 22, 2025 Coding Level of Care Code 28940 SUB INP/OBS CARE
[2025-07-22] MEDS: REMOVE CLONIDINE PATCH SCH (17:48)
[2025-07-22] MEDS: CHECK CLONIDINE PATCH PLACEMENT SCH (23:13)
--- NOTE | 2025-07-23 09:56 | Hospitalist Progress Note ---
Date of Service July 23, 2025 Assessment & Plan (1) Dementia with agitation: (2) HTN (hypertension): (3) Obstructive sleep apnea of adult: Plan Nixon is an 80yo male with progressing dementia with agitation, AUDI with hypokalemia, and HTN, requires continued admission for stabilization and optimization on medication regimen while pending placement. Required 2-point b/l UE restraints due to aggression and agitation. Pending placement: waitlist at [facility], no openings in foreseeable future. Also has a referral out to [facility], but they can't make a decision until pt is off restraints and 1:1 for 48 hours. This AM he was little aggressive, however got better with re- orientation. Titrating scheduled Zyprexa would be reasonable at this point rather than giving intermittent IM dose, hence reached out to behavioral team. Requires continued inpatient admission while pending placement which is contingent on medical optimization.Last IM zyprexa was 5 days back. Family was involved in discussion this AM. #Aggression 2/2 Severe Dementia - Stable labs including B1, B12, TSH Head CT negative for acute pathology. - Psychiatry consulted, appreciate recs: [facility] Zyprexa 10mg QHS+ 5mg QAM, PRN 2.5mg PO and IM BID for aggression( Last IM dose 07/16) Continue clonidine patch 0.2mg/ 24 hour release, Q week. Continue reorientation, activity involvement Consider pain medication like lidocaine patch. Increasing dose of zyprexa would be last alternative as this does not have much evidence that it lowers frequency of aggression. - Promote safe environment,minimal interventions or disruptions overnight - Continue / - CM working on placement. No new updates today. - PT: Not candidate for Skilled PT, will f.u if needed. #HTN -Stable in last 48 hours. -Continue Amlodipine 5 mg QAM. -Continue Clonidine patch #Weight loss Significant wt loss after admission Deconditioning vs Poor intake Nutrition on board; Appreciate mgmt. No swallowing issue per RN on bedside, no choking Add Mirtazapine 7.5 mg daily for appetite stimulation. VTE ppx: Lovenox Dispo awaiting SNF Admission and Anticipated Discharge Date Admission Date: June 18, 2025 Supervising Physician Co-Signing Physician Notes I personally examined the patient and verified all [place] points of history and exam, discussed case, and agree with decision making with Dr Hodgson PGY 2 no new problems no new needs identified. There is no family present at this meeting. The patient continues to some issues with being redirected . Vitals noted, Sitting in his room, no distress. HEENT normocephalic atraumatic mucous membranes moist. Breathing unlabored no accessory muscle use good effort. Skin without rashes pallor or icterus. Neuro without focal deficits. Dementia with agitation. Continue current care. Continue reorientation and supportive care. Pending placement. Case management efforts appreciated Otherwise as above, pending placement. Subjective 1:1 observation at bedside. No new change today. Review of Systems Review of Systems: As per HPI Physical Exam Physical Exam: Constitutional: Well appearing, No acute distress, PILCCOD: Negative HEENT: Atraumatic, Normocephalic, No conjunctival injection CVS: Looks well perfused Respiratory: No increased work of breathing GI: Soft, Nondistended+ MSK: No gross deformities noted Skin: Looks perfused Neuro/ Psych: Baseline cognition, No focal deficit. Not Oriented to TPP Results & Data Results & Data Vital Signs (Past 12 Hours) Vital Signs Temp Pulse Pulse Resp BP Pulse Ox O2 Del Method 07/23/25 09:34 55 L 16 113/74 94 Room Air 07/22/25 23:11 36.3 C L 57 L 16 137/85 94 Room Air Resident Activity Tracking Resident Involvement: Resident Care Provided Care Provided: Adult Hospital Medicine
[2025-07-23] MEDS: REMOVE CLONIDINE PATCH SCH (16:47)
[2025-07-23] MEDS: CHECK CLONIDINE PATCH PLACEMENT SCH (16:48)
[2025-07-23] MEDS: MIRTAZAPINE TAB 15 MG TAB PO SCH (20:03)
--- NOTE | 2025-07-24 07:05 | Hospitalist Progress Note ---
Date of Service July 24, 2025 Assessment & Plan (1) Dementia with agitation: (2) HTN (hypertension): (3) Obstructive sleep apnea of adult: Plan Nixon is an 80yo male with progressing dementia with agitation, AUDI with hypokalemia, and HTN, requires continued admission for stabilization and optimization on medication regimen while pending placement. Still 1:1, still having some issues of reorientation #Aggression 2/2 Severe Dementia - Stable labs including B1, B12, TSH Head CT negative for acute pathology. - Psychiatry consulted, appreciate recs: [facility] Zyprexa 10mg QHS+ 5mg QAM, PRN 2.5mg PO and IM BID for aggression( Last IM dose 07/16) Continue clonidine patch 0.2mg/ 24 hour release, Q week. Continue reorientation, activity involvement Consider pain medication like lidocaine patch. Increasing dose of zyprexa would be last alternative as this does not have much evidence that it lowers frequency of aggression. - Promote safe environment,minimal interventions or disruptions overnight - CM working on placement. No new updates today. - PT: Not candidate for Skilled PT at hospital, will f.u if needed. #HTN -Stable in last 48 hours. -Continue Amlodipine 5 mg QAM. -Continue Clonidine patch #Weight loss Significant wt loss after admission Deconditioning vs Poor intake Nutrition on board; Appreciate mgmt. No swallowing issue per RN on bedside, no choking But aversion to food. Add Mirtazapine 7.5 mg daily for appetite stimulation. VTE ppx: Lovenox Dispo awaiting SNF Admission and Anticipated Discharge Date Admission Date: June 18, 2025 Supervising Physician Co-Signing Physician Notes I personally examined the patient and verified all [place] points of history and exam, discussed case, and agree with decision making with Dr Hodgson PGY 2 no new problems no new needs identified. There is no family present at this meeting. The patient continues to some issues with being redirected . Vitals noted, Sitting in his room, no distress. HEENT normocephalic atraumatic mucous membranes moist. Breathing unlabored no accessory muscle use good effort. Skin without rashes pallor or icterus. Neuro without focal deficits. Dementia with agitation. Continue current care. Continue reorientation and supportive care. Pending placement. Case management efforts appreciated Discussed with nursing if we can have patient moved to another room as 1 to 1 is limiting discharge options. Discussed with case management, will plan to try over the weekend. Complex discharge plan as their is concern that patient may try to elope. Otherwise as above, pending placement. Subjective 1:1 observation at bedside. RN mentioned that he has been having hard time eating, He does not want to eat. No swallowing issue, just does not want to eat. No new fever, cough, leg swelling. Review of Systems Review of Systems: As per HPI Physical Exam Physical Exam: Constitutional: Well appearing, No acute distress, PILCCOD: Negative HEENT: Atraumatic, Normocephalic, No conjunctival injection CVS: Looks well perfused Respiratory: No increased work of breathing GI: Soft, Nondistended MSK: No gross deformities noted Skin: Looks perfused Neuro/ Psych: Baseline cognition, No focal deficit. Not Oriented to TPP Resident Activity Tracking Resident Involvement: Resident Care Provided Care Provided: Adult Hospital Medicine
--- NOTE | 2025-07-24 09:15 | Billing Data ---
Date of Service July 23, 2025 Coding Level of Care Code 38109 SUB INP/OBS CARE MIN
--- NOTE | 2025-07-25 07:46 | Hospitalist Progress Note ---
Date of Service July 25, 2025 Assessment & Plan (1) Dementia with agitation: (2) HTN (hypertension): (3) Obstructive sleep apnea of adult: Plan Nixon is an 80yo male with progressing dementia with agitation, AUDI with hypokalemia, and HTN, requires continued admission for stabilization and optimization on medication regimen while pending placement. Still 1:1, still having some issues of reorientation. Issues of placement d/t ongoing 1:1. #Aggression 2/2 Severe Dementia - Stable labs including B1, B12, TSH Head CT negative for acute pathology. - Psychiatry consulted, appreciate recs: [facility] Zyprexa 10mg QHS+ 5mg QAM, PRN 2.5mg PO and IM BID for aggression( Last IM dose 07/16) Continue clonidine patch 0.2mg/ 24 hour release, Q week. Continue reorientation, activity involvement Consider pain medication like lidocaine patch. Increasing dose of zyprexa would be last alternative as this does not have much evidence that it lowers frequency of aggression. - Promote safe environment,minimal interventions or disruptions overnight - CM working on placement. No new updates today. - PT: Not candidate for Skilled PT at hospital, will f.u if needed. #HTN -Stable in last 48 hours. -Continue Amlodipine 5 mg QAM. -Continue Clonidine patch #Weight loss Significant wt loss after admission Deconditioning vs Poor intake Nutrition on board; Appreciate mgmt. No swallowing issue per RN on bedside, no choking But aversion to food. Continue Mirtazapine 7.5 mg daily for appetite stimulation. VTE ppx: Lovenox Dispo awaiting SNF Admission and Anticipated Discharge Date Admission Date: June 18, 2025 Supervising Physician Co-Signing Physician Notes I personally examined the patient and verified all [place] points of history and exam, discussed case, and agree with decision making with Dr Hodgson PGY 2 no new problems no new needs identified. There is no family present at this meeting. The patient continues to some issues with being redirected . Vitals noted, Sitting in his room, no distress. HEENT normocephalic atraumatic mucous membranes moist. Breathing unlabored no accessory muscle use good effort. Skin without rashes pallor or icterus. Neuro without focal deficits. Dementia with agitation. Continue current care. Continue reorientation and supportive care. Pending placement. Case management efforts appreciated Discussed with nursing if we can have patient moved to another room as 1 to 1 is limiting discharge options. May be risky to try this over the weekend as patient has been known to run to the elevator. Discussed with case management, looking for other options Complex discharge plan as their is concern that patient may try to elope. Otherwise as above, pending placement. Subjective 1:1 observation at bedside. RN mentioned that he has been having hard time eating, He does not want to eat. No swallowing issue, just does not want to eat. No new fever, cough, leg swelling. Review of Systems Review of Systems: As per HPI Physical Exam Physical Exam: Constitutional: Well appearing, No acute distress, PILCCOD: Negative HEENT: Atraumatic, Normocephalic, No conjunctival injection CVS: Looks well perfused Respiratory: No increased work of breathing GI: Soft, Nondistended MSK: No gross deformities noted Skin: Looks perfused Neuro/ Psych: Baseline cognition, No focal deficit. Not Oriented to TPP Results & Data Results & Data Vital Signs (Past 12 Hours) Vital Signs Pulse Resp BP Pulse Ox O2 Del Method 07/25/25 07:09 56 L 17 115/75 91 Room Air Resident Activity Tracking Resident Involvement: Resident Care Provided Care Provided: Adult Hospital Medicine
[2025-07-26 07:34] LABS: Hematocrit (blood only) 39.3 % (42.0-52.0); Hemoglobin 13.0 g/dl (14.0-18.0); Immature Granulocytes # (auto) 0.06 K/uL (0.01-0.20); Immature Granulocytes % (auto) 0.8 %; Mean Corpuscular Hemoglobin 29.8 pg (25.0-34.0); Mean Corpuscular Volume 90.1 fL (80.0-100.0); Platelet Count 236 K/uL (130-400); RDW Standard Deviation 42.8 fL (36.4-46.3); Red Blood Count 4.36 M/uL (4.70-6.10); White Blood Count 7.34 K/ul (4.8-10.8)
--- NOTE | 2025-07-26 07:35 | Hospitalist Progress Note ---
Date of Service July 26, 2025 Assessment & Plan (1) Dementia with agitation: (2) HTN (hypertension): (3) Obstructive sleep apnea of adult: Plan Nixon is an 80yo male with progressing dementia with agitation, AUDI with hypokalemia, and HTN, requires continued admission for stabilization and optimization on medication regimen while pending placement. Still 1:1, still having some issues of reorientation. Issues of placement d/t ongoing 1:1. #Aggression 2/2 Severe Dementia - Stable labs including B1, B12, TSH Head CT negative for acute pathology. - Psychiatry consulted, appreciate recs: [facility] Zyprexa 10mg QHS+ 5mg QAM, PRN 2.5mg PO and IM BID for aggression( Last IM dose 07/16) Continue clonidine patch 0.2mg/ 24 hour release, Q week. Continue reorientation, activity involvement Consider pain medication like lidocaine patch. Increasing dose of zyprexa would be last alternative as this does not have much evidence that it lowers frequency of aggression. - Promote safe environment,minimal interventions or disruptions overnight - CM working on placement. No new updates today. - PT: Not candidate for Skilled PT at hospital, will f.u if needed. #HTN -Stable in last 48 hours. -Continue Amlodipine 5 mg QAM. -Continue Clonidine patch #Weight loss Significant wt loss after admission Deconditioning vs Poor intake Nutrition on board; Appreciate mgmt. No swallowing issue per RN on bedside, no choking But aversion to food. Continue Mirtazapine 7.5 mg daily for appetite stimulation. VTE ppx: Lovenox Dispo awaiting SNF Admission and Anticipated Discharge Date Admission Date: June 18, 2025 Supervising Physician Co-Signing Physician Notes I personally examined the patient and verified all [place] points of history and exam, discussed case, and agree with decision making with Dr Hodgson PGY 2 no new problems no new needs identified. There is no family present at this meeting. The patient continues to some issues with being redirected . Vitals noted, Sitting in his room, no distress. HEENT normocephalic atraumatic mucous membranes moist. Breathing unlabored no accessory muscle use good effort. Skin without rashes pallor or icterus. Neuro without focal deficits. Dementia with agitation. Continue current care. Continue reorientation and supportive care. Pending placement. Case management efforts appreciated Discussed with nursing if we can have patient moved to another room as 1 to 1 is limiting discharge options. May be risky to try this over the weekend as patient has been known to run to the elevator. Discussed with case management, looking for other options Complex discharge plan as their is concern that patient may try to elope. will keep 1 to 1 for now Otherwise as above, pending placement. Subjective 1:1 observation at bedside. RN mentioned that he has been stable. They are doing some puzzle games and talking. No swallowing issue. No new fever, cough, leg swelling. Review of Systems Review of Systems: As per HPI Physical Exam Physical Exam: Constitutional: Well appearing, No acute distress, PILCCOD: Negative HEENT: Atraumatic, Normocephalic, No conjunctival injection CVS: Looks well perfused Respiratory: No increased work of breathing GI: Soft, Nondistended MSK: No gross deformities noted Skin: Looks perfused Neuro/ Psych: Baseline cognition, No focal deficit. Not Oriented to TPP Results & Data Results & Data Vital Signs (Past 12 Hours) Vital Signs Temp Pulse Pulse Resp BP BP Pulse Ox 07/26/25 07:15 36.3 C L 57 L 16 116/70 93 07/25/25 20:44 57 L 18 117/80 95 O2 Del Method 07/26/25 07:15 Room Air 07/25/25 20:44 Room Air Resident Activity Tracking Resident Involvement: Resident Care Provided Care Provided: Adult Hospital Medicine
[2025-07-26 07:53] LABS: Alanine Aminotransferase 9.0 U/L (7-52); Albumin Globulin Ratio 1.3 (0.9-2); Albumin Level 3.7 gm/dl (3.4-5.0); Alkaline Phosphatase 80.0 U/L (34-104); Anion Gap 7.0 (3-11); Bilirubin,Total 1.2 mg/dl (0.2-1.0); Blood Urea Nitrogen 16.0 mg/dl (6-23); Calcium 9.5 mg/dl (8.6-10.3); Carbon Dioxide 28.0 mmol/L (21-32); Chloride 103.0 mmol/L (98-107); Creatinine Clr Calc Pharmacy 67.2 ml/min; Globulin 2.8 gm/dl (2.5-4.0); Glucose 101.0 mg/dl (70-99(Fasting)); Potassium 3.6 mmol/L (3.5-5.1); Sodium 138.0 mmol/L (136-145); Total Protein 6.5 gm/dl (6.0-8.3)
--- NOTE | 2025-07-26 09:19 | Billing Data ---
Date of Service July 24, 2025 Coding Level of Care Code 90355 SUB INP/OBS CARE
--- NOTE | 2025-07-26 09:20 | Billing Data ---
Date of Service July 25, 2025 Coding Level of Care Code 84581 SUB INP/OBS CARE MIN
--- NOTE | 2025-07-27 06:56 | Hospitalist Progress Note ---
Date of Service July 27, 2025 Assessment & Plan (1) Dementia with agitation: (2) HTN (hypertension): (3) Obstructive sleep apnea of adult: Plan Nixon is an 80yo male with progressing dementia with agitation, AUDI with hypokalemia, and HTN, requires continued admission for stabilization and optimization on medication regimen while pending placement. Still 1:1, became aggressive last evening, still having some issues of reorientation. Issues of placement d/t ongoing 1:1. #Aggression 2/2 Severe Dementia - Stable labs including B1, B12, TSH Head CT negative for acute pathology. - Psychiatry consulted, appreciate recs: [facility] Zyprexa 10mg QHS+ 5mg QAM, PRN 2.5mg PO and IM BID for aggression( Last IM dose 07/26) Continue clonidine patch 0.2mg/ 24 hour release, Q week. Continue reorientation, activity involvement Consider pain medication like lidocaine patch. Increasing dose of zyprexa would be last alternative as this does not have much evidence that it lowers frequency of aggression. - Promote safe environment,minimal interventions or disruptions overnight - CM working on placement. No new updates today. - PT: Not candidate for Skilled PT at hospital, will f.u if needed. #HTN -Stable in last 48 hours. -Continue Amlodipine 5 mg QAM. -Continue Clonidine patch #Weight loss Significant wt loss after admission Deconditioning vs Poor intake Nutrition on board; Appreciate mgmt. No swallowing issue per RN on bedside, no choking But aversion to food. Continue Mirtazapine 7.5 mg daily for appetite stimulation. VTE ppx: Lovenox Dispo awaiting SNF Admission and Anticipated Discharge Date Admission Date: June 18, 2025 Supervising Physician Co-Signing Physician Notes I personally examined the patient and verified all [place] points of history and exam, discussed case, and agree with decision making with Dr Hodgson PGY 2 no new problems no new needs identified. There is no family present at this meeting. The patient continues to some issues with being redirected . Vitals noted, Sitting in his room, no distress. HEENT normocephalic atraumatic mucous membranes moist. Breathing unlabored no accessory muscle use good effort. Skin without rashes pallor or icterus. Neuro without focal deficits. Dementia with agitation. Continue current care. Continue reorientation and supportive care. Pending placement. Case management efforts appreciated Discussed with nursing if we can have patient moved to another room as 1 to 1 is limiting discharge options. May be risky to try this over the weekend as patient has been known to run to the elevator. Discussed with case management, looking for other options Complex discharge plan as their is concern that patient may try to elope. will keep 1 to 1 for now Continue mirtazapine for weight loss Otherwise as above, pending placement. Subjective 1:1 observation at bedside. Last evening patient was aggressive, trying to leave room, combative, hitting bedside staff, could not be reoriented, hence Zyprexa was given. This morning pt appeared restless c/t yesterday, refusing to eat food, refusing Zyprexa morning dose per RN. However No swallowing issue. No new fever, cough, leg swelling. Review of Systems Review of Systems: As per HPI Physical Exam Physical Exam: Constitutional: Appeared frustrated, frail, restless, pale looking. HEENT: Atraumatic, Normocephalic, No conjunctival injection CVS: Looks well perfused Respiratory: No increased work of breathing GI: Soft, Nondistended MSK: No gross deformities noted Skin: Looks perfused Neuro/ Psych: Baseline cognition, No focal deficit. Not Oriented to TPP Resident Activity Tracking Resident Involvement: Resident Care Provided Care Provided: Adult Hospital Medicine
--- NOTE | 2025-07-27 16:13 | Billing Data ---
Date of Service July 26, 2025 Coding Level of Care Code 32057 SUB INP/OBS CARE
--- NOTE | 2025-07-27 16:18 | Billing Data ---
Date of Service July 27, 2025 Coding Level of Care Code 49637 SUB INP/OBS CARE
--- NOTE | 2025-07-28 23:32 | Hospitalist Progress Note ---
Date of Service July 28, 2025 Assessment & Plan (1) Dementia with agitation: (2) HTN (hypertension): (3) Obstructive sleep apnea of adult: Plan Nixon is an 80yo male with progressing dementia with agitation, AUDI with hypokalemia, and HTN, requires continued admission for stabilization and optimization on medication regimen while pending placement. Still 1:1, became aggressive last evening, still having some issues of reorientation. Issues of placement d/t ongoing 1:1. #Aggression 2/2 Severe Dementia - Stable labs including B1, B12, TSH Head CT negative for acute pathology. - Psychiatry consulted, appreciate recs: [facility] Zyprexa 10mg QHS+ 5mg QAM, PRN 2.5mg PO and IM BID for aggression( Last IM dose 07/26) Continue clonidine patch 0.2mg/ 24 hour release, Q week. Continue reorientation, activity involvement Consider pain medication like lidocaine patch. Increasing dose of zyprexa would be last alternative as this does not have much evidence that it lowers frequency of aggression. - Promote safe environment,minimal interventions or disruptions overnight - CM working on placement. No new updates today. - PT: Not candidate for Skilled PT at hospital, will f.u if needed. d/w case manageent on 07/28 #HTN -Stable in last 48 hours. -Continue Amlodipine 5 mg QAM. -Continue Clonidine patch #Weight loss Significant wt loss after admission Deconditioning vs Poor intake Nutrition on board; Appreciate mgmt. No swallowing issue per RN on bedside, no choking But aversion to food. Continue Mirtazapine 7.5 mg daily for appetite stimulation. VTE ppx: Lovenox Dispo awaiting SNF Admission and Anticipated Discharge Date Admission Date: June 18, 2025 Subjective Patient reports no new symptoms. Physical Exam Physical Exam: General he is awake and alert sitting in a chair there is mostly completed puzzle on his nightstand. There is to be in no distress. HEENT normocephalic atraumatic mucous membranes moist. Breathing unlabored no accessory muscle use good effort. Skin without rashes pallor or icterus. Neuro without focal deficits. PG Care Time/CCT Total # of Minutes Spent Total Time Spent with Patient: Total time spent is greater than 50% in coordination of care (as documented) at patient's floor/unit and/or counseling patient: Coding Level of Care Code 42668 SUB INP/OBS CARE 2/35MIN Diagnoses Dementia with agitation F03.911 HTN (hypertension) I10 Obstructive sleep apnea of adult G47.33
--- NOTE | 2025-07-29 23:12 | Hospitalist Progress Note ---
Date of Service July 29, 2025 Assessment & Plan (1) Dementia with agitation: (2) HTN (hypertension): (3) Obstructive sleep apnea of adult: Plan Nixon is an 80yo male with progressing dementia with agitation, AUDI with hypokalemia, and HTN, requires continued admission for stabilization and optimization on medication regimen while pending placement. Still 1:1, became aggressive last evening, still having some issues of reorientation. Issues of placement d/t ongoing 1:1. #Aggression 2/2 Severe Dementia - Stable labs including B1, B12, TSH Head CT negative for acute pathology. - Psychiatry consulted, appreciate recs: [facility] Zyprexa 10mg QHS+ 5mg QAM, PRN 2.5mg PO and IM BID for aggression( Last IM dose 07/26) Continue clonidine patch 0.2mg/ 24 hour release, Q week. Continue reorientation, activity involvement Consider pain medication like lidocaine patch. Increasing dose of zyprexa would be last alternative as this does not have much evidence that it lowers frequency of aggression. - Promote safe environment,minimal interventions or disruptions overnight - CM working on placement. No new updates today. - PT: Not candidate for Skilled PT at hospital, will f.u if needed. d/w case manageent on 07/29 #HTN -Stable in last 48 hours. -Continue Amlodipine 5 mg QAM. -Continue Clonidine patch #Weight loss Significant wt loss after admission Deconditioning vs Poor intake Nutrition on board; Appreciate mgmt. No swallowing issue per RN on bedside, no choking But aversion to food. Increased Mirtazapine 15 mg daily for appetite stimulation on 07/29, may help with sleep VTE ppx: Lovenox Dispo awaiting SNF Admission and Anticipated Discharge Date Admission Date: June 18, 2025 Subjective Patient is confused. Patient only slept one hour last night. Physical Exam Physical Exam: General he is awake and alert sitting in a chair there is mostly completed puzzle on his nightstand. There is to be in no distress. HEENT normocephalic atraumatic mucous membranes moist. Breathing unlabored no accessory muscle use good effort. Skin without rashes pallor or icterus. Neuro without focal deficits. PG Care Time/CCT Total # of Minutes Spent Total Time Spent with Patient: Total time spent is greater than 50% in coordination of care (as documented) at patient's floor/unit and/or counseling patient: Coding Level of Care Code 91929 SUB INP/OBS CARE 2MIN Diagnoses Dementia with agitation F03.911 HTN (hypertension) I10 Obstructive sleep apnea of adult G47.33
--- NOTE | 2025-07-30 12:24 | Hospitalist Progress Note ---
Date of Service July 30, 2025 Assessment & Plan (1) Dementia with agitation: (2) HTN (hypertension): (3) Obstructive sleep apnea of adult: Plan Nixon is an 80yo male with progressing dementia with agitation, AUDI with hypokalemia, and HTN, requires continued admission for stabilization and optimization on medication regimen while pending placement. Still requiring 1:1 sitter. Ongoing issues of placement due to 1:1. #Severe Dementia with Aggression/Agitation - Stable labs including B1, B12, TSH - Head CT negative for acute pathology - Psychiatry consulted, appreciate recs: [facility] Zyprexa 10mg QHS+ 5mg QAM, PRN 2.5mg PO and IM BID for aggression( Last IM dose 07/29) Continue clonidine patch 0.2mg/ 24 hour release, Q week. Continue reorientation, activity involvement Consider pain medication like lidocaine patch Increasing dose of Zyprexa would be last alternative as this does not have much evidence that it lowers frequency of aggression - Promote safe environment, minimal interventions or disruptions overnight - CM working on placement - PT: Not candidate for Skilled PT at hospital, will f.u if needed - Last dose of IM Zyprexa on 07/29 #HTN - overall has been more stable. Continue Amlodipine 5 mg QAM, Clonidine patch Q7D #Weight loss - Significant wt loss since admission --> Deconditioning vs Poor intake - Nutrition on board; Appreciate mgmt. - No swallowing issue per RN on bedside, no choking but aversion to food - Increased Mirtazapine 15 mg daily for appetite stimulation on 07/29, may help with sleep VTE ppx: Lovenox Dispo: awaiting placement, CM following Updated at bedside Reviewed prior records Admission and Anticipated Discharge Date Admission Date: June 18, 2025 Supervising Physician Co-Signing Physician Notes PA Supervision Note: I did not personally see or examine the patient today, but I verified all [place] points of ANKUR Diamond's assessment and plan with the following exceptions/additions: None Subjective Patient seen and evaluated in bedside chair with his and 1:1 sitter present. He is only oriented to self at baseline secondary to dementia, so no meaningful ROS able to be obtained. reports that Joce had a shower today. RN reports patient again did not sleep at all overnight - spent most of the night pacing. He still has a poor appetite/oral intake - continuing to encourage. RN reports he can become combative when touched. He has not displayed any aggressive behaviors overnight or today so far. He was agreeable to taking all of his morning medications today. No additional complaints or concerns at this time. Review of Systems Review of Systems: Unobtainable due to cognitive status Physical Exam Physical Exam: General: No acute distress, nondiaphoretic. Frail elderly man. Cardiac: Well-perfused. Rate in 60s. Pulm: Normal respiratory effort. 95% on room air. Neuro: A&O x1 (self - baseline). No focal neurological deficits. Results & Data Results & Data Vital Signs (Past 12 Hours) Vital Signs Temp Pulse Resp BP Pulse Ox O2 Del Method 07/30/25 08:02 98.2 F 57 L 16 151/73 H 95 Room Air PG Care Time/CCT Total # of Minutes Spent Total Time Spent with Patient: Total time spent is greater than 50% in coordination of care (as documented) at patient's floor/unit and/or counseling patient: Coding Level of Care Code 95976 SUB INP/OBS CARE 2/35MIN Diagnoses Dementia with agitation F03.911 HTN (hypertension) I10 Obstructive sleep apnea of adult G47.33
[2025-07-30] MEDS: MIRTAZAPINE TAB 15 MG TAB PO SCH (20:02)
--- NOTE | 2025-07-31 17:49 | Hospitalist Progress Note ---
Date of Service July 31, 2025 Assessment & Plan (1) Dementia with agitation: (2) HTN (hypertension): (3) Obstructive sleep apnea of adult: Plan Nixon is an 80yo male with progressing dementia with agitation, AUDI with hypokalemia, and HTN, requires continued admission for stabilization and optimization on medication regimen while pending placement. Still requiring 1:1 sitter. Ongoing issues of placement due to 1:1. #Severe Dementia with Aggression/Agitation - Stable labs including B1, B12, TSH - Head CT negative for acute pathology - Psychiatry consulted, appreciate recs: [facility] Zyprexa 10mg QHS+ 5mg QAM, PRN 2.5mg PO and IM BID for aggression( Last IM dose 07/29) Continue clonidine patch 0.2mg/ 24 hour release, Q week. Continue reorientation, activity involvement Consider pain medication like lidocaine patch Increasing dose of Zyprexa would be last alternative as this does not have much evidence that it lowers frequency of aggression - Promote safe environment, minimal interventions or disruptions overnight - CM working on placement - PT: Not candidate for Skilled PT at hospital, will f.u if needed - Last dose of IM Zyprexa on 07/29 #HTN - overall has been more stable. Continue Amlodipine 5 mg QAM, Clonidine patch Q7D #Weight loss - Significant wt loss since admission --> Deconditioning vs Poor intake - Nutrition on board; Appreciate mgmt. - No swallowing issue per RN on bedside, no choking but aversion to food - Increased Mirtazapine 15 mg daily for appetite stimulation on 07/29, may help with sleep VTE ppx: Lovenox Dispo: awaiting placement, CM following Updated at bedside Reviewed prior records Admission and Anticipated Discharge Date Admission Date: June 18, 2025 Supervising Physician Co-Signing Physician Notes PA Supervision Note: I did not personally see or examine the patient today, but I verified all [place] points of ANKUR Diamond's assessment and plan with the following exceptions/additions: None Subjective Patient seen and evaluated in bedside chair with his and 1:1 sitter present. He finally slept overnight. He still does not have much of an appetite. He took his morning medications without difficulty. No aggressive or agitated behaviors yesterday or today. No acute complaints or concerns at this time. Physical Exam Physical Exam: General: No acute distress, nondiaphoretic. Frail elderly man. Cardiac: Well-perfused. Rate in 60s. Pulm: Normal respiratory effort. 93% on room air. Neuro: A&O x1 (self - baseline). No focal neurological deficits. Results & Data Results & Data Vital Signs (Past 12 Hours) Vital Signs Temp Pulse Resp BP Pulse Ox O2 Del Method 07/31/25 07:10 97.7 F 59 L 16 113/72 93 Room Air PG Care Time/CCT Total # of Minutes Spent Total Time Spent with Patient: Total time spent is greater than 50% in coordination of care (as documented) at patient's floor/unit and/or counseling patient: Coding Level of Care Code 97925 SUB INP/OBS CARE 11/30MIN Diagnoses Dementia with agitation F03.911 HTN (hypertension) I10 Obstructive sleep apnea of adult G47.33
--- NOTE | 2025-08-01 13:16 | Hospitalist Progress Note ---
Date of Service August 01, 2025 Assessment & Plan (1) Dementia with agitation: (2) HTN (hypertension): (3) Obstructive sleep apnea of adult: Plan Nixon is an 80yo male with progressing dementia with agitation, AUDI with hypokalemia, and HTN, requires continued admission for stabilization and optimization on medication regimen while pending placement. Still requiring 1:1 sitter for elopement risk. Ongoing issues of placement due to 1:1. #Severe Dementia with Aggression/Agitation - behaviors much improved/stable now. Remains on 1:1 for elopement risk, not because of behaviors. - Stable labs including B1, B12, TSH - Head CT negative for acute pathology - Psychiatry consulted, appreciate recs: [facility] Zyprexa 10mg QHS+ 5mg QAM, PRN 2.5mg PO and IM BID for aggression( Last IM dose 07/29) Continue clonidine patch 0.2mg/ 24 hour release, Q week. Continue reorientation, activity involvement Consider pain medication like lidocaine patch Increasing dose of Zyprexa would be last alternative as this does not have much evidence that it lowers frequency of aggression - Promote safe environment, minimal interventions or disruptions overnight - CM working on placement - PT: Not candidate for Skilled PT at hospital, will f.u if needed - Last dose of IM Zyprexa on 07/29 #HTN - overall has been more stable. Continue Amlodipine 5 mg QAM, Clonidine patch Q7D #Weight loss - Significant wt loss since admission --> Deconditioning vs Poor intake - Nutrition on board; Appreciate mgmt. - No swallowing issue per RN on bedside, no choking but aversion to food - Increased Mirtazapine 15 mg daily for appetite stimulation on 07/29, may help with sleep #Constipation-chronic issue even before hospitalization - Continue daily fiber and MiraLAX every other day - Increase Senokot to 8.6 mg p.o. twice daily - Make docusate 100 mg p.o. twice daily scheduled VTE ppx: Lovenox Dispo: awaiting placement, CM following. [place] Benjamín to come meet with patient today 08/01. Admission and Anticipated Discharge Date Admission Date: June 18, 2025 Supervising Physician Co-Signing Physician Notes PA Supervision Note: I did not personally see or examine the patient today, but I verified all [place] points of ANKUR Diamond's assessment and plan with the following exceptions/additions: None Subjective Patient seen and evaluated in bedside chair with 1:1 sitter present. He did not sleep at all overnight. He has been sleeping on and off for periods of 10 minutes during the day today. He took his morning medications without difficulty. His appetite remains reduced. [place] Benjamín is coming in today to meet with Nixon. No acute complaints or concerns at this time. Physical Exam Physical Exam: General: No acute distress, nondiaphoretic. Frail elderly man. Cardiac: Well-perfused. Rate in 60s. Pulm: Normal respiratory effort. 94% on room air. Neuro: A&O x1 (self - baseline). No focal neurological deficits. Results & Data Results & Data Vital Signs (Past 12 Hours) Vital Signs Pulse Resp BP Pulse Ox O2 Del Method 08/01/25 08:55 58 L 18 120/82 94 Room Air PG Care Time/CCT Total # of Minutes Spent Total Time Spent with Patient: Total time spent is greater than 50% in coordination of care (as documented) at patient's floor/unit and/or counseling patient: Coding Level of Care Code 15715 SUB INP/OBS CARE 11/30MIN Diagnoses Dementia with agitation F03.911 HTN (hypertension) I10 Obstructive sleep apnea of adult G47.33
[2025-08-01] MEDS: DOCUSATE SODIUM 100 MG CAP PO SCH (20:36)
[2025-08-01] MEDS: SENNA 8.6 MG TAB PO SCH (20:36)
--- NOTE | 2025-08-02 13:28 | Hospitalist Progress Note ---
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 Given the patient's risk for elopement, he remains with one-to-one observation. Psychiatry has been consulted and provided pharmacologic interventions as well as nonpharmacologic interventions. The patient has had progressive weight loss since her initial admission; this is most likely consequential of physical deconditioning given their prolonged hospitalization; additionally, the patient does have diminished appetite, which is typical in geriatric population especially in someone who suffers with this degree of cognitive impairment. Would not recommend further adjustment of the patient's mirtazapine as this medication has very poor evidence for any appetite simulation, may cause significant interaction with his other medications necessary for assistance with his dementia as described above. Small, more frequent meals with high caloric concentration would be preferable than pharmacologic stimulation of appetite. With patient's chronic medical conditions they have been no recent changes to their chronic management. Admission and Anticipated Discharge Date Admission Date: June 18, 2025 Subjective Mr. 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 This morning, the patient does not have any specific complaints or concerns. Review of Systems Review of Systems: Review of constitutional, cardiovascular, pulmonary, gastrointestinal, neurologic systems was unremarkable Physical Exam Physical Exam: General: Frail, elderly male in no acute distress Vital Signs: Reviewed HEENT: Moist mucous membranes Pulmonary: Symmetric chest wall excursion without restriction; clear to auscult ation bilaterally Cardiovascular: Regular rate and rhythm without murmurs, rubs, or gallops; S1 and S2 normal; right radial pulse 2+ with brisk capillary refill Neurologic: Cranial nerves II through XII grossly intact; oriented to self, not oriented to place nor time; no focal neurologic deficits no paresthesias Results & Data Results & Data Vital Signs (Past 12 Hours) Vital Signs Temp Pulse Resp BP Pulse Ox O2 Del Method 08/02/25 08:45 36.5 C 56 L 16 111/75 93 Room Air PG Care Time/CCT Total # of Minutes Spent Total Time Spent with Patient: Total time spent is greater than 50% in coordination of care (as documented) at patient's floor/unit and/or counseling patient: Coding Level of Care Code 09207 SUB INP/OBS CARE 11/30MIN Diagnoses 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 Frailty syndrome in geriatric patient R54
--- NOTE | 2025-08-03 07:42 | Hospitalist Progress Note ---
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 Given the patient's risk for elopement, he remains with one-to-one observation. Psychiatry has been consulted and provided pharmacologic interventions as well as nonpharmacologic interventions. The patient has had progressive weight loss since her initial admission; this is most likely consequential of physical deconditioning given their prolonged hospitalization; additionally, the patient does have diminished appetite, which is typical in geriatric population especially in someone who suffers with this degree of cognitive impairment. Would not recommend further adjustment of the patient's mirtazapine as this medication has very poor evidence for any appetite simulation, may cause significant interaction with his other medications necessary for assistance with his dementia as described above. Small, more frequent meals with high caloric concentration would be preferable than pharmacologic stimulation of appetite. With patient's chronic medical conditions there have been no recent changes to their chronic management. Pending placement at this time Admission and Anticipated Discharge Date Admission Date: June 18, 2025 Subjective Mr. 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 This morning, the patient does not have any specific complaints or concerns. Review of Systems Review of Systems: Review of constitutional, cardiovascular, pulmonary, gastrointestinal, neurologic systems was unremarkable Physical Exam Physical Exam: General: Frail, elderly male in no acute distress Vital Signs: Reviewed HEENT: Moist mucous membranes Pulmonary: Symmetric chest wall excursion without restriction; clear to auscultation bilaterally Cardiovascular: Regular rate and rhythm without murmurs, rubs, or gallops; S1 and S2 normal; right radial pulse 2+ with brisk capillary refill Neurologic: Cranial nerves II through XII grossly intact; oriented to self, not oriented to place nor time; no focal neurologic deficits no paresthesias Results & Data Results & Data Vital Signs (Past 12 Hours) Vital Signs Temp Pulse Resp BP Pulse Ox O2 Del Method 08/02/25 23:00 36.5 C 55 L 16 113/78 93 Room Air PG Care Time/CCT Total # of Minutes Spent Total Time Spent with Patient: Total time spent is greater than 50% in coordination of care (as documented) at patient's floor/unit and/or counseling patient: Coding Level of Care Code 66877 SUB INP/OBS CARE 11/30MIN Diagnoses 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 Frailty syndrome in geriatric patient R54
--- NOTE | 2025-08-04 07:35 | Hospitalist Progress Note ---
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 Given the patient's risk for elopement, he remains with one-to-one observation. Psychiatry has been consulted and provided pharmacologic interventions as well as nonpharmacologic interventions. The patient has had progressive weight loss since her initial admission; this is most likely consequential of physical deconditioning given their prolonged hospitalization; additionally, the patient does have diminished appetite, which is typical in geriatric population especially in someone who suffers with this degree of cognitive impairment. Would not recommend further adjustment of the patient's mirtazapine as this medication has very poor evidence for any appetite simulation, may cause significant interaction with his other medications necessary for assistance with his dementia as described above. Small, more frequent meals with high caloric concentration would be preferable than pharmacologic stimulation of appetite. With patient's chronic medical conditions there have been no recent changes to their chronic management. Pending placement at this time Admission and Anticipated Discharge Date Admission Date: June 18, 2025 Subjective Mr. 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 This morning, the patient does not have any specific complaints or concerns. Review of Systems Review of Systems: Review of constitutional, cardiovascular, pulmonary, gastrointestinal, neurologic systems was unremarkable Physical Exam Physical Exam: General: Frail, elderly male in no acute distress Vital Signs: Reviewed HEENT: Moist mucous membranes Pulmonary: Symmetric chest wall excursion without restriction; clear to auscultation bilaterally Cardiovascular: Regular rate and rhythm without murmurs, rubs, or gallops; S1 and S2 normal; right radial pulse 2+ with brisk capillary refill Neurologic: Cranial nerves II through XII grossly intact; oriented to self, not oriented to place nor time; no focal neurologic deficits no paresthesias Results & Data Results & Data Vital Signs (Past 12 Hours) Vital Signs Pulse Resp BP Pulse Ox O2 Del Method 09/28/25 21:39 62 18 116/76 92 Room Air PG Care Time/CCT Total # of Minutes Spent Total Time Spent with Patient: Total time spent is greater than 50% in coordination of care (as documented) at patient's floor/unit and/or counseling patient: Coding Level of Care Code 83326 SUB INP/OBS CARE 11/30MIN Diagnoses 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 Frailty syndrome in geriatric patient R54
--- NOTE | 2025-08-05 07:28 | Hospitalist Progress Note ---
Date of Service August 05, 2025 Assessment & Plan (1) Major neurocognitive disorder due to Alzheimer disease, with behavioral disturbance: (2) Frailty syndrome in geriatric patient: Plan In summary this is an 80-year-old male who presented for progressively worsening dementia with behavioral disturbance, unable to be cared for at home given his medical complexity. Given the patient's risk for elopement, he remains with one-to-one observation. Psychiatry has been consulted and provided pharmacologic interventions as well as nonpharmacologic interventions. The patient has had progressive weight loss since her initial admission; this is most likely consequential of physical deconditioning given their prolonged hospitalization; additionally, the patient does have diminished appetite, which is typical in geriatric population especially in someone who suffers with this degree of cognitive impairment. Would not recommend further adjustment of the patient's mirtazapine as this medication has very poor evidence for any appetite simulation, may cause significant interaction with his other medications necessary for assistance with his dementia as described above. Small, more frequent meals with high caloric concentration would be preferable than pharmacologic stimulation of appetite. With patient's chronic medical conditions there have been no recent changes to their chronic management. Pending placement at this time Admission and Anticipated Discharge Date Admission Date: June 18, 2025 Subjective Mr. 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 on [facility]/18 accompanied by his spouse due to progressive worsening behavioral disturbances in the setting of the patient's dementia and inability to care for the patient at home. This morning, the patient does not have any specific complaints or concerns. Review of Systems Review of Systems: Review of constitutional, cardiovascular, pulmonary, gastrointestinal, neurologic systems was unremarkable Physical Exam Physical Exam: General: Frail, elderly male in no acute distress Vital Signs: Reviewed HEENT: Moist mucous membranes Pulmonary: Symmetric chest wall excursion without restriction; clear to auscultation bilaterally Cardiovascular: Regular rate and rhythm without murmurs, rubs, or gallops; S1 and S2 normal; right radial pulse 2+ with brisk capillary refill Neurologic: Cranial nerves II through XII grossly intact; oriented to self, not oriented to place nor time; no focal neurologic deficits no paresthesias PG Care Time/CCT Total # of Minutes Spent Total Time Spent with Patient: Total time spent is greater than 50% in coordination of care (as documented) at patient's floor/unit and/or counseling patient: Coding Level of Care Code 15786 SUB INP/OBS CARE Diagnoses 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 Frailty syndrome in geriatric patient R54
--- NOTE | 2025-08-06 10:45 | CT Scan Report ---
CT cervical spine wo con CT DOSE: 1164.32 mGy.cm CLINICAL HISTORY: fall. COMPARISON: 12/03/2016 TECHNIQUE: Multiple axial CT images of the cervical spine were obtained without contrast. A dose low ering technique was utilized adhering to the principles of ALARA. FINDINGS: There is diffuse degenerative disc disease. No fracture or subluxation. IMPRESSION: No cervical spine fracture seen. ACT 112: Negative or not required by law. The above report was generated using voice recognition software. It may contain grammatical, syntax o r spelling errors. Electronically signed by: Kemal Nunez M.D. 08/06/2025 10:44 AM
--- NOTE | 2025-08-06 11:08 | CT Scan Report ---
CT head/brain wo con CLINICAL HISTORY: 80 years-old Male with fall. Acute head trauma status post fall TECHNIQUE: Multiple axial CT images of the head were obtained without contrast. A dose lowering tech nique was utilized adhering to the principles of ALARA. COMPARISON: Head CT 06/18/2025 FINDINGS: No acute intracranial hemorrhage, midline shift, intracranial mass, hydrocephalus, territorial ischem ia or abnormal extra-axial collection. Involutional changes with chronic microvascular ischemic disea se. Chronic left cerebellar lacunar infarct. The calvarium is intact. The paranasal sinuses, mastoid air cells, and middle ear cavities are clear . IMPRESSION: No acute intracranial abnormality or calvarial fracture. ACT 112: Negative or not required by law. The above report was generated using voice recognition software. It may contain grammatical, syntax o r spelling errors. Electronically signed by: Barber Dooley M.D. 08/06/2025 11:07 AM
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
--- NOTE | 2025-08-07 22:10 | Hospitalist Progress Note ---
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 Given the patient's risk for elopement, he remains with one-to-one observation. Psychiatry has been consulted and provided pharmacologic interventions as well as nonpharmacologic interventions. The patient has had progressive weight loss since her initial admission; this is most likely consequential of physical deconditioning given their prolonged hospitalization; additionally, the patient does have diminished appetite, which is typical in geriatric population especially in someone who suffers with this degree of cognitive impairment. Would not recommend further adjustment of the patient's mirtazapine as this medication has very poor evidence for any appetite simulation, may cause significant interaction with his other medications necessary for assistance with his dementia as described above. Small, more frequent meals with high caloric concentration would be preferable than pharmacologic stimulation of appetite. Patient had a fall on 08/[address] scan of head and neck. This was negative. With patient's chronic medical conditions there have been no recent changes to their chronic management. No new issues today. Pending placement at this time Admission and Anticipated Discharge Date Admission Date: June 18, 2025 Subjective Patient appears calm today. Physical Exam Physical Exam: General he is awake and alert sitting in a chair there is mostly completed puzzle on his nightstand. There is to be in no distress. HEENT normocephalic atraumatic mucous membranes moist. Breathing unlabored no accessory muscle use good effort. Skin without rashes pallor or icterus. Neuro without focal deficits. PG Care Time/CCT Total # of Minutes Spent Total Time Spent with Patient: Total time spent is greater than 50% in coordination of care (as documented) at patient's floor/unit and/or counseling patient: Coding Level of Care Code 00062 SUB INP/OBS CARE 2/35MIN Diagnoses 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 Frailty syndrome in geriatric patient R54
--- NOTE | 2025-08-08 19:04 | Hospitalist Progress Note ---
Date of Service August 08, 2025 Assessment & Plan (1) Major neurocognitive disorder due to Alzheimer disease, with behavioral disturbance: (2) Frailty syndrome in geriatric patient: Plan In summary this is an 80-year-old male who presented for progressively worsening dementia with behavioral disturbance, unable to be cared for at home given his medical complexity. Given the patient's risk for elopement, he remains with one-to-one observation. Psychiatry has been consulted and provided pharmacologic interventions as well as nonpharmacologic interventions. The patient has had progressive weight loss since her initial admission; this is most likely consequential of physical deconditioning given their prolonged hospitalization; additionally, the patient does have diminished appetite, which is typical in geriatric population especially in someone who suffers with this degree of cognitive impairment. Would not recommend further adjustment of the patient's mirtazapine as this medication has very poor evidence for any appetite simulation, may cause significant interaction with his other medications necessary for assistance with his dementia as described above. Small, more frequent meals with high caloric concentration would be preferable than pharmacologic stimulation of appetite. Patient had a fall on 08/[address] scan of head and neck. This was negative. With patient's chronic medical conditions there have been no recent changes to their chronic management. No new issues today, continues to get agitated at times. will have psych reach out again, Pending placement at this time Admission and Anticipated Discharge Date Admission Date: June 18, 2025 Subjective 80 yo male reports no new symptoms. Physical Exam Physical Exam: General he is awake and alert sitting in a chair there is mostly completed puzzle on his nightstand. There is to be in no distress. HEENT normocephalic atraumatic mucous membranes moist. Breathing unlabored no accessory muscle use good effort. Skin without rashes pallor or icterus. Neuro without focal deficits. Results & Data Results & Data Vital Signs (Past 12 Hours) Vital Signs Pulse Resp BP Pulse Ox O2 Del Method 08/08/25 07:25 52 L 18 132/82 94 Room Air PG Care Time/CCT Total # of Minutes Spent Total Time Spent with Patient: Total time spent is greater than 50% in coordination of care (as documented) at patient's floor/unit and/or counseling patient: Coding Level of Care Code 81173 SUB INP/OBS CARE 2/35MIN Diagnoses 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 Frailty syndrome in geriatric patient R54
--- NOTE | 2025-08-09 18:45 | Hospitalist Progress Note ---
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 Given the patient's risk for elopement, he remains with one-to-one observation. Psychiatry has been consulted and provided pharmacologic interventions as well as nonpharmacologic interventions. The patient has had progressive weight loss since her initial admission; this is most likely consequential of physical deconditioning given their prolonged hospitalization; additionally, the patient does have diminished appetite, which is typical in geriatric population especially in someone who suffers with this degree of cognitive impairment. Would not recommend further adjustment of the patient's mirtazapine as this medication has very poor evidence for any appetite simulation, may cause significant interaction with his other medications necessary for assistance with his dementia as described above. Small, more frequent meals with high caloric concentration would be preferable than pharmacologic stimulation of appetite. Patient had a fall on 08/[address] scan of head and neck. This was negative. With patient's chronic medical conditions there have been no recent changes to their chronic management. No new issues today, continues to get agitated at times. will have psych reach out again, Pending placement at this time Admission and Anticipated Discharge Date Admission Date: June 18, 2025 Subjective 80 yo male reports no new symptoms. Physical Exam Physical Exam: General he is awake and alert sitting in a chair there is mostly completed puzzle on his nightstand. There is to be in no distress. HEENT normocephalic atraumatic mucous membranes moist. Breathing unlabored no accessory muscle use good effort. Skin without rashes pallor or icterus. Neuro without focal deficits. PG Care Time/CCT Total # of Minutes Spent Total Time Spent with Patient: Total time spent is greater than 50% in coordination of care (as documented) at patient's floor/unit and/or counseling patient: Coding Level of Care Code 23625 SUB INP/OBS CARE 2/35MIN Diagnoses 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 Frailty syndrome in geriatric patient R54
--- NOTE | 2025-08-11 12:40 | Psychiatric Progress Note ---
Date of Service August 11, 2025 Impression / Recommendations Impression Diagnostically consistent with dementia with behavioral disturbance and with low suspicion for a co-occurring delirium process. Goal in dementia is to avoid medication management of behaviors if possible by maximizing non-pharmacologic strategies for behavioral management. However, given worsening agitation/aggression use of antipsychotics is warranted given risk/benefit profile favors treatment. Note all antipsychotic medications carry black box warning for increased risk of all-cause mortality in setting of dementia. A: Patient has been sleeping well most nights. Concern for late day confusion. Refusing meds at times. Recent increase in agitation striking caregivers. Chart review shows past Risperdal and Seroquel were ineffective and improvements seen with Olanzapine. Recommend to control environmental stressors (limiting noise and overstimulation, limiting nursing interventions as much as possible, providing regular reassurance and feedback, distraction, regular toileting). Potential medication interventions to improve agitation: 1. Addition of Olanzapine 2.5mg to 5mg dose at noon, 2. Consider reduction of mirtazapine to 7.5mg HS as higher doses may contribute to disinhibition, 3. Gabapentin 100mg BID up to 300mg BID, 4. Increase in Sertraline to 75mg daily. Overall, I spent a total of 30 minutes with this case including review of chart records, review of labwork, direct evaluation of the patient at bedside, counseling the patient, discussion of the patient with the hospitalist provider, discussion with the psychiatric liason during clinical rounds and review of collateral history from the family and documentation in the electronic health record. (1) Major neurocognitive disorder due to Alzheimer disease, with behavioral disturbance: Plan 08/11/25: See assessment 07/21/2025: -Consider specific nursing assessments daily of total sleep, how much he's eating at each meal, precipitants of events leading to agitation, and queries about his back pain -Continue to use music and walking laps as tolerated -Limit nursing interventions where feasible (less frequent vital sign checks) -Consider moving dose of olanzapine 5mg QAM to earlier if agitation tends to occur on awakening -If all the above is non-beneficial consider increasing olanzapine by 5mg total likely starting with HS dose to limit risk for sedation during the day. Olanzapine 10mg HS --> 15mg HS and continue olanzapine 5mg qAM Interval History Identifying Information Nixon Sarmiento is an 80-year-old male with past medical history of dementia with agitation, BEATRIZ, HTN, prostate cancer diagnosed in 2012 under surveillance admitted medically due to increased support needs. Psychiatry consulted for medication recommendations for agitation. Chief Complaint Agitation Subjective Subjective Patient was seen & assessed and interval progress reviewed with treatment team nursing and social work Overnight slept well. Last agitation incident last night, and on 08/09 afternoon and required IM olanzapine. Concern for late day confusion. Pt AO to self only. Sitting at side of bed. Does not appear distressed. Denies being in pain. Physical Exam Mental Examination Appearance: Disheveled Eye Contact: Fleeting Contact Motor Behavior: Slowed Speech: Poverty of Speech Mood: Anxious Affect: Congruent Thought Process: Slowed Thinking Thought Content: Poverty of Content Insight: Poor Judgement: Poor Vital Signs (Past 24 Hours) Last Vital Signs Temp 36.6 C 08/11/25 07:35 Pulse 58 L 08/11/25 07:35 Resp 18 08/11/25 07:35 BP 149/89 H 08/11/25 07:35 Pulse Ox 94 08/11/25 07:35 O2 Del Method Room Air 08/11/25 07:35 O2 Flow Rate 2 06/22/25 14:55 Results & Data ([facility]) Current Inpatient Medications Current Inpatient Medications: Current Inpatient Medications Acetaminophen (Acetaminophen 325 Mg Tab) 650 mg PO Q4H PRN PRN Reason: Pain or Fever Stop: 08/16/25 21:31 Last Admin: 08/10/25 21:14 Dose: 650 mg Amlodipine Besylate (Amlodipine Besylate 5 Mg Tab) 5 mg PO QAM [facility] Stop: 08/16/25 08:59 Last Admin: 08/11/25 08:09 Dose: 5 mg Bisacodyl (Bisacodyl 10 Mg Supp) 10 mg OH DAILY PRN PRN Reason: Constipation Stop: 08/16/25 07:08 Last Admin: 07/09/25 11:32 Dose: 10 mg Clonidine HCl (Clonidine Hcl 0.2 Mg/24 Hr Transderm Sys) 1 patch TD Q7D [facility] Stop: 08/22/25 15:59 Last Admin: 08/06/25 15:54 Dose: 1 patch Clotrimazole (Clotrimazole 1% Cr 15 Gm Tube) 1 appln EXT DAILY PRN PRN Reason: Rash Stop: 08/16/25 15:51 Docusate Sodium (Docusate Sodium 100 Mg Cap) 100 mg PO BID [facility] Stop: 08/31/25 20:59 Last Admin: 08/11/25 08:08 Dose: 100 mg Finasteride (Finasteride 5 Mg Tab) 5 mg PO QAM [facility] Stop: 08/16/25 11:44 Last Admin: 08/11/25 08:08 Dose: 5 mg Hydralazine HCl (Hydralazine Hcl 20 Mg/Ml Vial) 5 mg IV Q8H PRN PRN Reason: Hypertension Stop: 08/16/25 09:42 Melatonin (Melatonin 3 Mg Tab) 3 mg PO HS PRN PRN Reason: Sleep Stop: 08/16/25 21:31 Last Admin: 08/10/25 21:14 Dose: 3 mg Mirtazapine (Mirtazapine Tab 15 Mg Tab) 15 mg PO HS [facility] Stop: 08/29/25 20:59 Last Admin: 08/10/25 21:13 Dose: 15 mg Miscellaneous (Remove Lidoderm Patch) 1 each N/A DAILY@2100 [facility] Stop: 08/11/25 20:59 Last Admin: 08/10/25 21:13 Dose: 1 each Miscellaneous (Remove Clonidine Patch) 1 each N/A CQWK [facility] Stop: 08/22/25 15:44 Last Admin: 08/06/25 15:53 Dose: 1 each Miscellaneous (Check Clonidine Patch Placement) 1 each N/A QS [facility] Stop: 08/22/25 15:59 Last Admin: 08/11/25 07:50 Dose: 1 each Olanzapine (Olanzapine 10 Mg/2.1 Ml Sdv) 2.5 mg IM BID PRN PRN Reason: Agitation Stop: 08/16/25 19:38 Last Admin: 08/09/25 16:14 Dose: 2.5 mg Olanzapine (Olanzapine 10 Mg Tab) 10 mg PO HS [facility] Stop: 08/16/25 20:59 Last Admin: 08/10/25 21:13 Dose: 10 mg Olanzapine (Olanzapine 2.5 Mg Tab) 2.5 mg PO BID PRN PRN Reason: Agitation Stop: 08/16/25 15:09 Last Admin: 08/10/25 08:35 Dose: 2.5 mg Olanzapine (Olanzapine 5 Mg Tablet) 5 mg PO QAM [facility] Stop: 08/21/25 05:59 Last Admin: 08/11/25 08:10 Dose: 5 mg Polyethylene Glycol (Polyethylene (Miralax) 17 Gm Pack) 17 gm PO Q2D [facility] Stop: 08/16/25 07:14 Last Admin: 08/10/25 08:34 Dose: 17 gm Psyllium Hydrophilic Mucilloid (Psyllium Husk 4gm Packet) 4 gm PO QAM [facility] Stop: 08/16/25 18:59 Last Admin: 08/11/25 08:11 Dose: 4 gm Sennosides (Senna 8.6 Mg Tab) 8.6 mg PO BID [facility] Stop: 08/31/25 20:59 Last Admin: 08/11/25 08:08 Dose: 8.6 mg Sertraline HCl (Sertraline Hcl 50 Mg Tablet) 50 mg PO DAILY [facility] Stop: 08/16/25 08:59 Last Admin: 08/11/25 08:09 Dose: 50 mg
--- NOTE | 2025-08-11 23:34 | Hospitalist Progress Note ---
Date of Service August 11, 2025 Assessment & Plan (1) Major neurocognitive disorder due to Alzheimer disease, with behavioral disturbance: (2) Frailty syndrome in geriatric patient: Plan In summary this is an 80-year-old male who presented for progressively worsening dementia with behavioral disturbance, unable to be cared for at home given his medical complexity. Given the patient's risk for elopement, he remains with one-to-one observation. Psychiatry has been consulted and provided pharmacologic interventions as well as nonpharmacologic interventions. The patient has had progressive weight loss since her initial admission; this is most likely consequential of physical deconditioning given their prolonged hospitalization; additionally, the patient does have diminished appetite, which is typical in geriatric population especially in someone who suffers with this degree of cognitive impairment. Would not recommend further adjustment of the patient's mirtazapine as this medication has very poor evidence for any appetite simulation, may cause significant interaction with his other medications necessary for assistance with his dementia as described above. Small, more frequent meals with high caloric concentration would be preferable than pharmacologic stimulation of appetite. Patient had a fall on 08/[address] scan of head and neck. This was negative. With patient's chronic medical conditions there have been no recent changes to their chronic management. No new issues today, continues to get agitated at times. reconsulted psych on 08/11, Pending placement at this time Admission and Anticipated Discharge Date Admission Date: June 18, 2025 Subjective 80 yo male reports no new symptoms. Physical Exam Physical Exam: General he is awake and alert sitting in a chair there is mostly completed puzzle on his nightstand. There is to be in no distress. HEENT normocephalic atraumatic mucous membranes moist. Breathing unlabored no accessory muscle use good effort. Skin without rashes pallor or icterus. Neuro without focal def icits. Results & Data Results & Data Vital Signs (Past 12 Hours) Vital Signs Temp Pulse Resp BP Pulse Ox O2 Del Method 08/11/25 16:19 36.5 C 67 18 129/88 94 Room Air PG Care Time/CCT Total # of Minutes Spent Total Time Spent with Patient: Total time spent is greater than 50% in coordination of care (as documented) at patient's floor/unit and/or counseling patient: Coding Level of Care Code 21932 SUB INP/OBS CARE 2/35MIN Diagnoses 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 Frailty syndrome in geriatric patient R54
[2025-08-12] MEDS: OLANZAPINE 2.5 MG TAB PO SCH (13:32)
[2025-08-12] MEDS: MIRTAZAPINE TAB 15 MG TAB PO SCH (20:13)
--- NOTE | 2025-08-12 22:22 | Hospitalist Progress Note ---
Date of Service August 12, 2025 Assessment & Plan (1) Major neurocognitive disorder due to Alzheimer disease, with behavioral disturbance: (2) Frailty syndrome in geriatric patient: Plan In summary this is an 80-year-old male who presented for progressively worsening dementia with behavioral disturbance, unable to be cared for at home given his medical complexity. Given the patient's risk for elopement, he remains with one-to-one observation. Psychiatry has been consulted and provided pharmacologic interventions as well as nonpharmacologic interventions. The patient has had progressive weight loss since her initial admission; this is most likely consequential of physical deconditioning given their prolonged hospitalization; additionally, the patient does have diminished appetite, which is typical in geriatric population especially in someone who suffers with this degree of cognitive impairment. Would not recommend further adjustment of the patient's mirtazapine as this medication has very poor evidence for any appetite simulation, may cause significant interaction with his other medications necessary for assistance with his dementia as described above. Small, more frequent meals with high caloric concentration would be preferable than pharmacologic stimulation of appetite. Patient had a fall on 08/[address] scan of head and neck. This was negative. With patient's chronic medical conditions there have been no recent changes to their chronic management. No new issues today, continues to get agitated at times. reconsulted psych on 08/11, On 08/12 Cut back remeron to 7.5mg HS as this can increase disinhibition increased sertraline to 75 mg PO daily Added noon dose of olanzapine 2.5 mg Pending placement at this time Admission and Anticipated Discharge Date Admission Date: June 18, 2025 Subjective Patient has been verbally aggressive to 1:1 but has not been violent. Physical Exam Physical Exam: General he is awake and alert sitting in a chair there is mostly completed puzzle on his nightstand. There is to be in no distress. HEENT normocephalic atraumatic mucous membranes moist. Breathing unlabored no accessory muscle use good effort. Skin without rashes pallor or icterus. Neuro without focal deficits. Results & Data Results & Data Vital Signs (Past 12 Hours) Vital Signs O2 Del Method 08/12/25 11:39 Room Air PG Care Time/CCT Total # of Minutes Spent Total Time Spent with Patient: Total time spent is greater than 50% in coordination of care (as documented) at patient's floor/unit and/or counseling patient: Coding Level of Care Code 17631 SUB INP/OBS CARE 350MIN Diagnoses 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 Frailty syndrome in geriatric patient R54
[2025-08-13] MEDS: SERTRALINE HCL 50 MG TABLET PO SCH (09:30)
--- NOTE | 2025-08-13 17:30 | Hospitalist Progress Note ---
Date of Service August 13, 2025 Assessment & Plan (1) Dementia with agitation: (2) HTN (hypertension): (3) Obstructive sleep apnea of adult: Plan Nixon is an 80yo male with progressing dementia with agitation, AUDI with hypokalemia, and HTN, requires continued admission for stabilization and optimization on medication regimen while pending placement. Still requiring 1:1 sitter for elopement risk. Ongoing issues of placement due to 1:1. #Severe Dementia with Aggression/Agitation - behaviors much improved/stable now. Remains on 1:1 for elopement risk, not because of behaviors. - Stable labs including B1, B12, TSH - Head CT negative for acute pathology - Psychiatry consulted, appreciate recs: [facility] Zyprexa 5 mg QAM, 2.5 mg @1200, 10mg HS PRN Zyprexa 2.5mg IM BID for aggression (Last IM dose 08/09) Continue clonidine patch 0.2mg/ 24 hour release Q weekly Continue reorientation, activity involvement - Sertraline increased to 75 mg daily - continue - Remeron reduced to 7.5 mg HS - continue - Promote safe environment, minimal interventions or disruptions overnight #HTN - overall has been more stable. Continue Amlodipine 5 mg QAM, Clonidine patch Q7D #Weight loss - Significant wt loss since admission --> Deconditioning vs Poor intake - Nutrition on board; Appreciate mgmt. - No swallowing issue per RN on bedside, no choking but aversion to food - Continue Remeron #Fall - occurred on 08/06 - CT head and neck were negative - Fall precautions VTE ppx: Lovenox - fell off medication list after 1 month, resumed on 08/13 Dispo: awaiting placement, CM following Admission and Anticipated Discharge Date Admission Date: June 18, 2025 Supervising Physician Co-Signing Physician Notes PA Supervision Note: I did not personally see or examine the patient today, but I verified all [place] points of ANKUR Diamond's assessment and plan with the following exceptions/additions: None Subjective Patient seen and evaluated in bedside chair with 1:1 sitter present. He denies any complaints or concerns. RN reports his appetite is improved compared to earlier in his hospital stay. He ate half of his breakfast this morning. He slept well last night. He has not exhibited any aggressive behaviors the past few days. Continuing to wait for placement. Physical Exam Physical Exam: General: No acute distress, nondiaphoretic. Frail elderly man. Cardiac: Well-perfused. Rate in 60s. Pulm: Normal respiratory effort. 97% on room air. Neuro: A&O x1 (self - baseline). No focal neurological deficits. Results & Data Results & Data Vital Signs (Past 12 Hours) Vital Signs Temp Pulse Resp BP Pulse Ox O2 Del Method 08/13/25 07:43 97.2 F L 54 L 16 120/80 97 Room Air PG Care Time/CCT Total # of Minutes Spent Total Time Spent with Patient: Total time spent is greater than 50% in coordination of care (as documented) at patient's floor/unit and/or counseling patient: Coding Level of Care Code 93657 SUB INP/OBS CARE 11/30MIN Diagnoses Dementia with agitation F03.911 HTN (hypertension) I10 Obstructive sleep apnea of adult G47.33
[2025-08-14] MEDS: ENOXAPARIN INJ 40 MG/0.4 ML SYR SQ SCH (08:50)
--- NOTE | 2025-08-14 14:19 | Hospitalist Progress Note ---
Date of Service August 14, 2025 Assessment & Plan (1) Dementia with agitation: (2) HTN (hypertension): (3) Obstructive sleep apnea of adult: Plan Nixon is an 80yo male with progressing dementia with agitation, AUDI with hypokalemia, and HTN, requires continued admission for stabilization and optimization on medication regimen while pending placement. Still requiring 1:1 sitter for elopement risk. Ongoing issues of placement due to 1:1. #Severe Dementia with Aggression/Agitation - behaviors much improved/stable now. Remains on 1:1 for elopement risk, not because of behaviors. - Stable labs including B1, B12, TSH - Head CT negative for acute pathology - Psychiatry consulted, appreciate recs: [facility] Zyprexa 5 mg QAM, 2.5 mg @1200, 10mg HS PRN Zyprexa 2.5mg IM BID for aggression (Last IM dose 08/09) Continue clonidine patch 0.2mg/ 24 hour release Q weekly Continue reorientation, activity involvement - Sertraline increased to 75 mg daily - continue - Remeron reduced to 7.5 mg HS - continue - Promote safe environment, minimal interventions or disruptions overnight #HTN - overall has been more stable. Continue Amlodipine 5 mg QAM, Clonidine patch Q7D #Weight loss - Significant wt loss since admission --> Deconditioning vs Poor intake - Nutrition on board; Appreciate mgmt. - No swallowing issue per RN on bedside, no choking but aversion to food - Continue Remeron #Fall - occurred on 08/06 - CT head and neck were negative - Fall precautions VTE ppx: Lovenox - fell off medication list after 1 month, resumed on 08/13 Dispo: awaiting placement, CM following. reports [facility] is coming to evaluate him tomorrow, 08/15. She says that they do have an open bed, so she is hopeful if they are able to accept him that he could go there as early as next week. Updated at bedside. Admission and Anticipated Discharge Date Admission Date: June 18, 2025 Supervising Physician Co-Signing Physician Notes ANKUR Supervision Note: I did not personally see or examine the patient today, but I verified all [place] points of ANKUR Diamond's assessment and plan with the following exceptions/additions: None Subjective Patient seen and evaluated in bedside chair with his and 1:1 sitter present. He slept well overnight. He continues to have improved appetite. Joce asked for ice cream but otherwise had no needs, complaints, concerns at this time. informed me in the hide that [facility] is coming to evaluate him tomorrow. She is hopeful they will be able to accept him sometime next week. Physical Exam Physical Exam: General: No acute distress, nondiaphoretic. Frail elderly man. Cardiac: Well-perfused. Rate in 60s. Pulm: Normal respiratory effort. 96% on room air. Neuro: A&O x1 (self - baseline). No focal neurological deficits. Results & Data Results & Data Vital Signs (Past 12 Hours) Vital Signs Pulse Resp BP Pulse Ox O2 Del Method 08/14/25 07:22 59 L 16 139/85 96 Room Air PG Care Time/CCT Total # of Minutes Spent Total Time Spent with Patient: Total time spent is greater than 50% in coordination of care (as documented) at patient's floor/unit and/or counseling patient: Coding Level of Care Code 67315 SUB INP/OBS CARE 11/30MIN Diagnoses Dementia with agitation F03.911 HTN (hypertension) I10 Obstructive sleep apnea of adult G47.33
--- NOTE | 2025-08-15 16:55 | Hospitalist Progress Note ---
Date of Service August 15, 2025 Assessment & Plan (1) Dementia with agitation: (2) HTN (hypertension): (3) Obstructive sleep apnea of adult: Plan Nixon is an 80yo male with progressing dementia with agitation, AUDI with hypokalemia, and HTN, requires continued admission for stabilization and optimization on medication regimen while pending placement. Still requiring 1:1 sitter for elopement risk. Ongoing issues of placement due to 1:1. #Severe Dementia with Aggression/Agitation - behaviors much improved/stable now. Remains on 1:1 for elopement risk, not because of behaviors. - Stable labs including B1, B12, TSH - Head CT negative for acute pathology - Psychiatry consulted, appreciate recs: [facility] Zyprexa 5 mg QAM, 2.5 mg @1200, 10mg HS PRN Zyprexa 2.5mg IM BID for aggression (Last IM dose 08/09) Continue clonidine patch 0.2mg/ 24 hour release Q weekly Continue reorientation, activity involvement - Sertraline increased to 75 mg daily - continue - Remeron reduced to 7.5 mg HS - continue - Promote safe environment, minimal interventions or disruptions overnight #HTN - overall has been more stable. Continue Amlodipine 5 mg QAM, Clonidine patch Q7D #Weight loss - Significant wt loss since admission --> Deconditioning vs Poor intake - Nutrition on board; Appreciate mgmt. - No swallowing issue per RN on bedside, no choking but aversion to food - Continue Remeron #Fall - occurred on 08/06 - CT head and neck were negative - Fall precautions VTE ppx: Lovenox - fell off medication list after 1 month, resumed on 08/13 Dispo: awaiting placement, CM following. [place] [facility] evaluate Nixon on 08/15 and this visit went well. They will be reaching out to case management on Saturday 08/18 with a determination if they can accept him. They do have an open bed so if they are able to accept, he can likely be discharged early next week. Admission and Anticipated Discharge Date Admission Date: June 18, 2025 Supervising Physician Co-Signing Physician Notes ANKUR Supervision Note: I did not personally see or examine the patient today, but I verified all [place] points of ANKUR Diamond's assessment and plan with the following exceptions/additions: None Subjective Patient seen and evaluated at bedside chair with 1:1 sitter present. He took his morning medications and had difficulty. He has been walking the halls today. He is eating fairly well. RN reports [facility] who is here to evaluate him earlier today and said they could accept him as early as next week potentially. No acute complaints or concerns at this time. Physical Exam Physical Exam: General: No acute distress, nondiaphoretic. Frail elderly man. Cardiac: Well-perfused. Rate in 60s. Pulm: Normal respiratory effort. 96% on room air. Neuro: A&O x1 (self - baseline). No focal neurological deficits. Results & Data Results & Data Vital Signs (Past 12 Hours) Vital Signs O2 Del Method 08/15/25 08:00 Room Air PG Care Time/CCT Total # of Minutes Spent Total Time Spent with Patient: Total time spent is greater than 50% in coordination of care (as documented) at patient's floor/unit and/or counseling patient: Coding Level of Care Code 70277 SUB INP/OBS CARE 11/30MIN Diagnoses Dementia with agitation F03.911 HTN (hypertension) I10 Obstructive sleep apnea of adult G47.33
[2025-08-16 08:37] LABS: Creatinine Clr Calc Pharmacy 68.6 ml/min
--- NOTE | 2025-08-16 14:28 | Hospitalist Progress Note ---
Date of Service August 16, 2025 Assessment & Plan (1) Dementia with agitation: (2) HTN (hypertension): (3) Obstructive sleep apnea of adult: Plan Nixon is an 80yo male with progressing dementia with agitation, AUDI with hypokalemia, and HTN, requires continued admission for stabilization and optimization on medication regimen while pending placement. Still requiring 1:1 sitter for elopement risk. Ongoing issues of placement due to 1:1. #Severe Dementia with Aggression/Agitation - behaviors much improved/stable now. Remains on 1:1 for elopement risk, not because of behaviors. - Stable labs including B1, B12, TSH - Head CT negative for acute pathology - Psychiatry consulted, appreciate recs: WICHO Zyprexa 5 mg QAM, 2.5 mg @1200, 10mg HS PRN Zyprexa 2.5mg IM BID for aggression (Last IM dose 08/09) Continue clonidine patch 0.2mg/ 24 hour release Q weekly Continue reorientation, activity involvement - Sertraline increased to 75 mg daily - continue - Remeron reduced to 7.5 mg HS - continue - Promote safe environment, minimal interventions or disruptions overnight #HTN - overall has been more stable. Continue Amlodipine 5 mg QAM, Clonidine patch Q7D #Weight loss - Significant wt loss since admission --> Deconditioning vs Poor intake - Nutrition on board; Appreciate mgmt. - No swallowing issue per RN on bedside, no choking but aversion to food - Continue Remeron #Fall - occurred on 08/06 - CT head and neck were negative - Fall precautions VTE ppx: Lovenox - fell off medication list after 1 month, resumed on 08/13 Dispo: awaiting placement, CM following. [place] [facility] evaluate Nixon on 08/15 and this visit went well. They will be reaching out to case management on Saturday 08/18 with a determination if they can accept him. They do have an open bed so if they are able to accept, he can likely be discharged early next week. Admission and Anticipated Discharge Date Admission Date: June 18, 2025 Supervising Physician Co-Signing Physician Notes ANKUR Supervision Note: I did not personally see or examine the patient today, but I verified all [place] points of ANKUR Diamond's assessment and plan with the following exceptions/additions: None Subjective Patient seen and evaluated at bedside chair with 1:1 sitter present. He is doing well today, currently listening to his radio at bedside. He took his morning medications without difficulty. He slept well overnight. He continues to have an improved appetite. Has been calm and cooperative with his care today. No acute complaints or concerns at this time. Physical Exam Physical Exam: General: No acute distress, nondiaphoretic. Frail elderly man. Cardiac: Well-perfused. Rate in 60s. Pulm: Normal respiratory effort. 96% on room air. Neuro: A&O x1 (self - baseline). No focal neurological deficits. Results & Data Results & Data Vital Signs (Past 12 Hours) Vital Signs Temp Pulse Resp BP Pulse Ox O2 Del Method 08/16/25 07:10 97.5 F L 56 L 16 131/87 94 Room Air PG Care Time/CCT Total # of Minutes Spent Total Time Spent with Patient: Total time spent is greater than 50% in coordination of care (as documented) at patient's floor/unit and/or counseling patient: Coding Level of Care Code 75477 SUB INP/OBS CARE 11/30MIN Diagnoses Dementia with agitation F03.911 HTN (hypertension) I10 Obstructive sleep apnea of adult G47.33
[2025-08-16] MEDS: OLANZapine 10 MG TAB PO SCH (19:55)
--- NOTE | 2025-08-17 16:36 | Hospitalist Progress Note ---
Date of Service August 17, 2025 Assessment & Plan (1) Dementia with agitation: (2) HTN (hypertension): (3) Obstructive sleep apnea of adult: Plan Nixon is an 80yo male with progressing dementia with agitation, AUDI with hypokalemia, and HTN, requires continued admission for stabilization and optimization on medication regimen while pending placement. Still requiring 1:1 sitter for elopement risk. Ongoing issues of placement due to 1:1. #Severe Dementia with Aggression/Agitation - behaviors much improved/stable now. Remains on 1:1 for elopement risk, not because of behaviors. - Stable labs including B1, B12, TSH - Head CT negative for acute pathology - Psychiatry consulted, appreciate recs: WICHO Zyprexa 5 mg QAM, 2.5 mg @1200, 10mg HS PRN Zyprexa 2.5mg IM BID for aggression (Last IM dose 08/09) Continue clonidine patch 0.2mg/ 24 hour release Q weekly Continue reorientation, activity involvement - Sertraline increased to 75 mg daily - continue - Remeron reduced to 7.5 mg HS - continue - Promote safe environment, minimal interventions or disruptions overnight #HTN - overall has been more stable. Continue Amlodipine 5 mg QAM, Clonidine patch Q7D #Weight loss - Significant wt loss since admission --> Deconditioning vs Poor intake - Nutrition on board; Appreciate mgmt. - No swallowing issue per RN on bedside, no choking but aversion to food - Continue Remeron #Fall - occurred on 08/06 - CT head and neck were negative - Fall precautions VTE ppx: Lovenox - fell off medication list after 1 month, resumed on 08/13 Dispo: awaiting placement, CM following. [place] [facility] Tiw[facility] evaluate Nixon on 08/15 and this visit went well. They will be reaching out to case management on Saturday 08/18 with a determination if they can accept him. They do have an open bed so if they are able to accept, he can likely be discharged early next week. Admission and Anticipated Discharge Date Admission Date: June 18, 2025 Supervising Physician Co-Signing Physician Notes ANKUR Supervision Note: I did not personally see or examine the patient today, but I verified all [place] points of ANKUR Diamond's assessment and plan with the following exceptions/additions: None Subjective Patient seen and evaluated at bedside with 1:1 sitter present. He has been calm and cooperative today. He is currently watching the [employer] game. He took his morning medications without difficulty. He continues to have an improved appetite and is eating well. He slept well overnight. No acute complaints or concerns at this time. Physical Exam Physical Exam: General: No acute distress, nondiaphoretic. Frail elderly man. Cardiac: Well-perfused. Rate in 60s. Pulm: Normal respiratory effort. 95% on room air. Neuro: A&O x1 (self - baseline). No focal neurological deficits. Results & Data Results & Data Vital Signs (Past 12 Hours) Vital Signs Pulse Resp BP Pulse Ox O2 Del Method 08/17/25 08:30 Room Air 08/17/25 07:25 55 L 16 139/87 95 Room Air PG Care Time/CCT Total # of Minutes Spent Total Time Spent with Patient: Total time spent is greater than 50% in coordination of care (as documented) at patient's floor/unit and/or counseling patient: Coding Level of Care Code 25957 SUB INP/OBS CARE 11/30MIN Diagnoses Dementia with agitation F03.911 HTN (hypertension) I10 Obstructive sleep apnea of adult G47.33
--- NOTE | 2025-08-18 15:44 | Hospitalist Progress Note ---
Date of Service August 18, 2025 Assessment & Plan (1) Dementia with agitation: (2) HTN (hypertension): (3) Obstructive sleep apnea of adult: Plan Nixon is an 80yo male with progressing dementia with agitation, AUDI with hypokalemia, and HTN, requires continued admission for stabilization and optimization on medication regimen while pending placement. Still requiring 1:1 sitter for elopement risk. Ongoing issues of placement due to 1:1. #Severe Dementia with Aggression/Agitation - behaviors much improved/stable now. Remains on 1:1 for elopement risk, not because of behaviors. - Stable labs including B1, B12, TSH - Head CT negative for acute pathology - Psychiatry consulted, appreciate recs: WICHO Zyprexa 5 mg QAM, 2.5 mg @1200, 10mg HS PRN Zyprexa 2.5mg IM BID for aggression (Last IM dose 08/09) Continue clonidine patch 0.2mg/ 24 hour release Q weekly Continue reorientation, activity involvement - Sertraline increased to 75 mg daily - continue - Remeron reduced to 7.5 mg HS - continue - Promote safe environment, minimal interventions or disruptions overnight - 72 hours post any additional medications or PRNs. #HTN - overall has been more stable. Continue Amlodipine 5 mg QAM, Clonidine patch Q7D #Weight loss - Significant wt loss since admission --> Deconditioning vs Poor intake - Nutrition on board; Appreciate mgmt. - No swallowing issue per RN on bedside, no choking but aversion to food - Continue Remeron #Fall - occurred on 08/06 - CT head and neck were negative - Fall precautions VTE ppx: Lovenox - fell off medication list after 1 month, resumed on 08/13 Dispo: awaiting placement, CM following. [place] [facility] Tiw[facility] evaluate Nixon on 08/15 and this visit went well. They will be reaching out to case management on Saturday 08/18 with a determination if they can accept him. They do have an open bed so if they are able to accept, he can likely be discharged early next week. Admission and Anticipated Discharge Date Admission Date: June 18, 2025 Subjective actually doing very well per the aide. They made some adjustments to medications adding the Zyprexa and since then he has been much more redirectable much more calm. No events through the night. Eating quite well per staff. No problem with the limitations. Still awaiting placement Physical Exam Physical Exam: General: No acute distress, nondiaphoretic. Frail elderly man. Cardiac: Well-perfused. Rate in 60s. Pulm: Normal respiratory effort. 95% on room air. Neuro: A&O x1 (self - baseline). No focal neurological deficits. Results & Data Results & Data Vital Signs (Past 12 Hours) Vital Signs Temp Pulse Pulse Resp BP Pulse Ox O2 Del Method 08/18/25 08:24 36.6 C 56 L 16 126/83 96 Room Air 08/18/25 07:31 36.6 C 56 L 16 126/83 96 Room Air PG Care Time/CCT Total # of Minutes Spent Total Time Spent with Patient: Total time spent is greater than 50% in coordination of care (as documented) at patient's floor/unit and/or counseling patient: Coding Level of Care Code 28959 SUB INP/OBS CARE 11/30MIN Diagnoses Dementia with agitation F03.911 HTN (hypertension) I10 Obstructive sleep apnea of adult G47.33
[2025-08-19 08:57] LABS: Creatinine Clr Calc Pharmacy 67.0 ml/min
--- NOTE | 2025-08-19 16:08 | Hospitalist Progress Note ---
Date of Service August 19, 2025 Assessment & Plan (1) Dementia with agitation: (2) HTN (hypertension): (3) Obstructive sleep apnea of adult: Plan Nixon is an 80yo male with progressing dementia with agitation, AUDI with hypokalemia, and HTN, requires continued admission for stabilization and optimization on medication regimen while pending placement. Still requiring 1:1 sitter for elopement risk. Ongoing issues of placement due to 1:1. #Severe Dementia with Aggression/Agitation - behaviors much improved/stable now. Remains on 1:1 for elopement risk, not because of behaviors. - Stable labs including B1, B12, TSH - Head CT negative for acute pathology - Psychiatry consulted, appreciate recs: WICHO Zyprexa 5 mg QAM, 2.5 mg @1200, 10mg HS PRN Zyprexa 2.5mg IM BID for aggression (Last IM dose 08/09) Continue clonidine patch 0.2mg/ 24 hour release Q weekly Continue reorientation, activity involvement - Sertraline increased to 75 mg daily - continue - Remeron reduced to 7.5 mg HS - continue - Promote safe environment, minimal interventions or disruptions overnight - 96 hours post any additional medications or PRNs. #HTN - overall has been more stable. Continue Amlodipine 5 mg QAM, Clonidine patch Q7D #Weight loss - Significant wt loss since admission --> Deconditioning vs Poor intake - Nutrition on board; Appreciate mgmt. - No swallowing issue per RN on bedside, no choking but aversion to food - Continue Remeron #Fall - occurred on 08/06 - CT head and neck were negative - Fall precautions VTE ppx: Lovenox - fell off medication list after 1 month, resumed on 08/13 Dispo: awaiting placement, CM following. [place] [facility] Tiw[facility] evaluate Nixon on 08/15 and this visit went well. They will be reaching out to case management on Saturday 08/18 with a determination if they can accept him. They do have an open bed so if they are able to accept, he can likely be discharged early next week. Admission and Anticipated Discharge Date Admission Date: June 18, 2025 Subjective Doing okay this morning. No recurrent bouts of aggression. Remains redirectable. Less conversation with staff this morning but sitting eating lunch, watching old [employer] television shows on my arrival. Does not make eye contact or converses much but is appropriate when asked questions. No other events or concerns per patient or nursing staff Physical Exam Physical Exam: General: No acute distress, nondiaphoretic. Frail elderly man. Cardiac: Well-perfused. Rate in 60s. Pulm: Normal respiratory effort. 95% on room air. Neuro: A&O x1 (self - baseline). No focal neurological deficits. Results & Data Results & Data Vital Signs (Past 12 Hours) Vital Signs Temp Pulse Resp BP Pulse Ox O2 Del Method 08/19/25 07:52 36.6 C 61 18 141/95 H 96 Room Air PG Care Time/CCT Total # of Minutes Spent Total Time Spent with Patient: Total time spent is greater than 50% in coordination of care (as documented) at patient's floor/unit and/or counseling patient: Coding Level of Care Code 17402 SUB INP/OBS CARE 11/30MIN Diagnoses Dementia with agitation F03.911 HTN (hypertension) I10 Obstructive sleep apnea of adult G47.33
--- NOTE | 2025-08-20 13:26 | Hospitalist Progress Note ---
Date of Service August 20, 2025 Assessment & Plan (1) Dementia with agitation: (2) HTN (hypertension): (3) Obstructive sleep apnea of adult: Plan Nixon is an 80yo male with progressing dementia with agitation, AUDI with hypokalemia, and HTN, requires continued admission for stabilization and optimization on medication regimen while pending placement. Still requiring 1:1 sitter for elopement risk. Ongoing issues of placement due to 1:1. #Severe Dementia with Aggression/Agitation - behaviors much improved/stable now. Remains on 1:1 for elopement risk, not because of behaviors. - Stable labs including B1, B12, TSH - Head CT negative for acute pathology - Psychiatry consulted, appreciate recs: WICHO Zyprexa 5 mg QAM, 2.5 mg @1200, 10mg HS PRN Zyprexa 2.5mg IM BID for aggression (Last IM dose 08/09) Continue clonidine patch 0.2mg/ 24 hour release Q weekly Continue reorientation, activity involvement - Sertraline increased to 75 mg daily - continue - Remeron reduced to 7.5 mg HS - continue - Promote safe environment, minimal interventions or disruptions overnight - 5 days with no unexpected episodes of agitation or abortive medications required, additional medications or PRNs. #HTN - overall has been more stable. Continue Amlodipine 5 mg QAM, Clonidine patch Q7D #Weight loss - Significant wt loss since admission --> Deconditioning vs Poor intake - Nutrition on board; Appreciate mgmt. - No swallowing issue per RN on bedside, no choking but aversion to food - Continue Remeron #Fall - occurred on 08/06 - CT head and neck were negative - Fall precautions VTE ppx: Lovenox - fell off medication list after 1 month, resumed on 08/13 Dispo: awaiting placement, CM following. [place] [facility] Tiwari evaluate Nixon on 08/15 and this visit went well. They will be reaching out to case management on Saturday 08/18 with a determination if they can accept him. They do have an open bed so if they are able to accept, he can likely be discharged early next week. Admission and Anticipated Discharge Date Admission Date: June 18, 2025 Subjective doing okay overnight. No evidence of agitation or hostility. Calmly eating breakfast this morning. Still poor eye contact with cueing. Staff states that the only time he seems to get agitated is when they try and change his clothing. Otherwise he has been watching TV and been fairly redirectable. Continues with one-to-one Physical Exam Physical Exam: General: No acute distress, nondiaphoretic. Frail elderly man. Cardiac: Well-perfused. Rate in 60s. Pulm: Normal respiratory effort. 95% on room air. Neuro: A&O x1 (self - baseline). No focal neurological deficits. Results & Data Results & Data Vital Signs (Past 12 Hours) Vital Signs Pulse Resp BP Pulse Ox O2 Del Method 08/20/25 08:36 58 L 18 108/75 94 Room Air PG Care Time/CCT Total # of Minutes Spent Total Time Spent with Patient: Total time spent is greater than 50% in coordination of care (as documented) at patient's floor/unit and/or counseling patient: Coding Level of Care Code 37584 SUB INP/OBS CARE 11/30MIN Diagnoses Dementia with agitation F03.911 HTN (hypertension) I10 Obstructive sleep apnea of adult G47.33
[2025-08-21] MEDS: ACETAMINOPHEN 325 MG TAB PO PRN (09:47)
--- NOTE | 2025-08-21 13:54 | Hospitalist Progress Note ---
Date of Service August 21, 2025 Assessment & Plan (1) Dementia with agitation: (2) HTN (hypertension): (3) Obstructive sleep apnea of adult: Plan Nixon is an 80yo male with progressing dementia with agitation, AUDI with hypokalemia, and HTN, requires continued admission for stabilization and optimization on medication regimen while pending placement. Still requiring 1:1 sitter for elopement risk. Ongoing issues of placement due to 1:1. #Severe Dementia with Aggression/Agitation - behaviors much improved/stable now. Remains on 1:1 for elopement risk, not because of behaviors. - Stable labs including B1, B12, TSH - Head CT negative for acute pathology - Psychiatry consulted, appreciate recs: [facility]ICHO Zyprexa 5 mg QAM, 2.5 mg @1200, 10mg HS PRN Zyprexa 2.5mg IM BID for aggression (Last IM dose 08/09) Continue clonidine patch 0.2mg/ 24 hour release Q weekly Continue reorientation, activity involvement - Sertraline increased to 75 mg daily - continue - Remeron reduced to 7.5 mg HS - continue - Promote safe environment, minimal interventions or disruptions overnight - 6 days with no unexpected episodes of agitation or abortive medications required, additional medications or PRNs. - doing well with redirection. Working with staff here on one-to-one doing a puzzle. #HTN - overall has been more stable. Continue Amlodipine 5 mg QAM, Clonidine patch Q7D #Weight loss - Significant wt loss since admission --> Deconditioning vs Poor intake - Nutrition on board; Appreciate mgmt. - No swallowing issue per RN on bedside, no choking but aversion to food - Continue Remeron #Fall - occurred on 08/06 - CT head and neck were negative - Fall precautions VTE ppx: Lovenox - fell off medication list after 1 month, resumed on 08/13 Dispo: awaiting placement, CM following. [place] [facility] Tiwari evaluate Nixon on 08/15 and this visit went well. They will be reaching out to case management on Saturday 08/18 with a determination if they can accept him. They do have an open bed so if they are able to accept, he can likely be discharged early next week. Admission and Anticipated Discharge Date Admission Date: June 18, 2025 Subjective doing okay this morning. No aggression towards staff. Was sitting there working on a puzzle for a little while. Plan to watch some television. I saw him midmorning. By that time he had no recall of what he had for breakfast. Still generally flat affect, poor eye contact. Appropriate simple response to questioning. No new events or concerns. No aggression per nursing staff. Physical Exam Physical Exam: General: No acute distress, nondiaphoretic. Frail elderly man. Cardiac: Well-perfused. Regular rate and rhythm no murmurs rubs or gallop Pulm: Normal respiratory effort. on room air. Neuro: A&O x1 (self - baseline). No focal neurological deficits. Psychiatric: generally impaired cognition, normal speech, no dysmetria or dysarthria. Poor eye contact. Very limited response to questioning Results & Data Results & Data Vital Signs (Past 12 Hours) Vital Signs Pulse Resp BP Pulse Ox O2 Del Method 08/21/25 09:49 65 18 146/97 H 93 Room Air PG Care Time/CCT Total # of Minutes Spent Total Time Spent with Patient: Total time spent is greater than 50% in coordination of care (as documented) at patient's floor/unit and/or counseling patient: Coding Level of Care Code 08477 SUB INP/OBS CARE 11/30MIN Diagnoses Dementia with agitation F03.911 HTN (hypertension) I10 Obstructive sleep apnea of adult G47.33
[2025-08-21] MEDS: MELATONIN 3 MG TAB PO SCH (19:39)
--- NOTE | 2025-08-22 04:52 | CT Scan Report ---
EXAM: CT head/brain wo con CLINICAL HISTORY: Fall TECHNIQUE: Multiple axial images were obtained from the skull base to the vertex without contrast. CT scan was performed according to ALARA (as low as reasonably achievable). COMPARISON: 09:28:57 REST ROOM ATTENDANT-stable. FINDINGS: There is cerebral atrophy. A calcific focus in left frontal extra-axial space. Small soft tissue density seen surrounding the calcified focus in previous scan is not seen in present scan. No evidence of space-occupying lesion, hemorrhage, edema, mass effect, midline shift, extra-axial collection, or hydrocephalus is noted. The basal cisterns are symmetric and normal in size and configuration. There are scattered periventricular hypodensities, as can be seen with chronic microvascular ischemic changes. The izquierdo-white matter differentiation is preserved. The visualized paranasal sinuses and mastoid air cells are well aerated. Orbital contents are within normal limits. Bony structures are intact. IMPRESSION: 1. No evidence of acute intracranial abnormality is demonstrated. 2. Chronic microvascular ischemic changes. Stable. 3. Cerebral atrophy. Stable. Electronically signed by Eugenio Lux 08-22-2025 04:52 AM
[2025-08-22 10:34] LABS: Creatinine Clr Calc Pharmacy 67.0 ml/min
--- NOTE | 2025-08-22 12:14 | Hospitalist Progress Note ---
Date of Service August 22, 2025 Assessment & Plan (1) Dementia with agitation: (2) HTN (hypertension): (3) Obstructive sleep apnea of adult: Plan Nixon is an 80yo male with progressing dementia with agitation, AUDI with hypokalemia, and HTN, requires continued admission for stabilization and optimization on medication regimen while pending placement. Still requiring 1:1 sitter for elopement risk. Ongoing issues of placement due to 1:1. #Severe Dementia with Aggression/Agitation - behaviors much improved/stable now. Remains on 1:1 for elopement risk, not because of behaviors. - Stable labs including B1, B12, TSH - Head CT negative for acute pathology - Psychiatry consulted, appreciate recs: WICHO Zyprexa 5 mg QAM, 2.5 mg @1200, 10mg HS PRN Zyprexa 2.5mg IM BID for aggression (Last IM dose 08/09) Continue clonidine patch 0.2mg/ 24 hour release Q weekly Continue reorientation, activity involvement - Sertraline increased to 75 mg daily - continue - Remeron reduced to 7.5 mg HS - continue - Promote safe environment, minimal interventions or disruptions overnight - 6 days with no unexpected episodes of agitation or abortive medications required, additional medications or PRNs. - no outbursts or violence. for at least 6 days See fall below #Fall from standing - unfortunately this is an inherent property of his risk given the lack of redirectability. Minimally traumatic fall, superficial abrasions as noted above, CT negative. Will continue to monitor for postconcussive syndromes although given the mechanism I think his risk is quite low #HTN - overall has been more stable. Continue Amlodipine 5 mg QAM, Clonidine patch Q7D #Weight loss - Significant wt loss since admission --> Deconditioning vs Poor intake - Nutrition on board; Appreciate mgmt. - No swallowing issue per RN on bedside, no choking but aversion to food - Continue Remeron #Fall - occurred on 08/06 - CT head and neck were negative - Fall precautions VTE ppx: Lovenox - fell off medication list after 1 month, resumed on 08/13 Dispo: awaiting placement, CM following. [place] [facility] evaluate Nixon on 08/15 and this visit went well. They will be reaching out to case management on Saturday 08/18 with a determination if they can accept him. They do have an open bed so if they are able to accept, he can likely be discharged early next week. Admission and Anticipated Discharge Date Admission Date: June 18, 2025 Subjective doing okay this morning. Sitting at the side of the hospital bed. Eating breakfast uneventfully. Minimally talkative but that is not unusual for him at this point in the morning. Unfortunately he did sustain a fall last night. Abrasion injury to the chin [address] scan was obtained was negative. Otherwise he is back to his baseline this morning with no evidence sequela of a minor traumatic fall. No other events or concerns per nursing staff patient minimally verbal Physical Exam Physical Exam: General: No acute distress, nondiaphoretic. Frail elderly man. HEENT: superficial abrasion on the right anterior forehead with slight skin scabbing. No contusion, secondary abrasion on the right anterior chin. Normal occlusion of the jaw. No pain with mastication. No malalignment. No involvement of the deep tissues of the skin for either abrasion Cardiac: Well-perfused. Regular rate and rhythm no murmurs rubs or gallop Pulm: Normal respiratory effort. on room air. Neuro: A&O x1 (self - baseline). No focal neurological deficits. Psychiatric: generally impaired cognition, normal speech, no dysmetria or dysarthria. Poor eye contact. Very limited response to questioning Results & Data Results & Data Vital Signs (Past 12 Hours) Vital Signs Temp Pulse Resp BP Pulse Ox O2 Del Method 08/22/25 08:19 Room Air 08/22/25 08:00 36.6 C 62 16 136/72 95 Room Air 08/22/25 03:31 36.8 C 55 L 16 145/80 H 93 Room Air Diagnostic Findings Head CT 08/22/25 03:40 EXAM: CT head/brain wo con CLINICAL HISTORY: Fall TECHNIQUE: Multiple axial images were obtained from the skull base to the vertex without contrast. CT scan was performed according to ALARA (as low as reasonably achievable). COMPARISON: 09:28:57 [employer]-stable. FINDINGS: There is cerebral atrophy. A calcific focus in left frontal extra-axial space. Small soft tissue density seen surrounding the calcified focus in previous scan is not seen in present scan. No evidence of space-occupying lesion, hemorrhage, edema, mass effect, midline shift, extra-axial collection, or hydrocephalus is noted. The basal cisterns are symmetric and normal in size and configuration. There are scattered periventricular hypodensities, as can be seen with chronic microvascular ischemic changes. The izquierdo-white matter differentiation is preserved. The visualized paranasal sinuses and mastoid air cells are well aerated. Orbital contents are within normal limits. Bony structures are intact. IMPRESSION: 1. No evidence of acute intracranial abnormality is demonstrated. 2. Chronic microvascular ischemic changes. Stable. 3. Cerebral atrophy. Stable. Electronically signed by Eugenio Lux 08-22-2025 04:52 AM PG Care Time/CCT Total # of Minutes Spent Total Time Spent with Patient: Total time spent is greater than 50% in coordination of care (as documented) at patient's floor/unit and/or counseling patient: Coding Level of Care Code 40299 SUB INP/OBS CARE 2/35MIN Diagnoses Dementia with agitation F03.911 HTN (hypertension) I10 Obstructive sleep apnea of adult G47.33
[2025-08-22] MEDS ORDERED: REMOVE CLONIDINE PATCH SCH (17:00)
[2025-08-22] MEDS: REMOVE CLONIDINE PATCH SCH (19:39)
[2025-08-23] MEDS ORDERED: CHECK CLONIDINE PATCH PLACEMENT SCH
[2025-08-23] MEDS: CHECK CLONIDINE PATCH PLACEMENT SCH (00:15)
--- NOTE | 2025-08-23 12:58 | Hospitalist Progress Note ---
Date of Service August 23, 2025 Assessment & Plan (1) Dementia with agitation: (2) HTN (hypertension): (3) Obstructive sleep apnea of adult: Plan Nixon is an 80yo male with progressing dementia with agitation, AUDI with hypokalemia, and HTN, requires continued admission for stabilization and optimization on medication regimen while pending placement. Still requiring 1:1 sitter for elopement risk. Ongoing issues of placement due to 1:1. #Severe Dementia with Aggression/Agitation - behaviors much improved/stable now. Remains on 1:1 for elopement risk, not because of behaviors. - Stable labs including B1, B12, TSH - Head CT negative for acute pathology - Psychiatry consulted, appreciate recs: WICHO Zyprexa 5 mg QAM, 2.5 mg @1200, 10mg HS PRN Zyprexa 2.5mg IM BID for aggression (Last IM dose 08/09) Continue clonidine patch 0.2mg/ 24 hour release Q weekly Continue reorientation, activity involvement - Sertraline increased to 75 mg daily - continue - Remeron reduced to 7.5 mg HS - continue - Promote safe environment, minimal interventions or disruptions overnight - 7 days with no unexpected episodes of agitation or abortive medications required, additional medications or PRNs. - no outbursts or violence. for at least 7 days See fall below from yesterday #Fall from standing - 48 hours post fall, chin abrasion and forehead abrasion are healing well. He is back to his baseline no further evaluation or testing required #HTN - overall has been more stable. Continue Amlodipine 5 mg QAM, Clonidine patch Q7D #Weight loss - Significant wt loss since admission --> Deconditioning vs Poor intake - Nutrition on board; Appreciate mgmt. - No swallowing issue per RN on bedside, no choking but aversion to food - Continue Remeron #Fall - occurred on 08/06 - CT head and neck were negative - Fall precautions VTE ppx: Lovenox - fell off medication list after 1 month, resumed on 08/13 Dispo: awaiting placement, CM following. [place] [facility] evaluate Nixon on 08/15 and this visit went well. They will be reaching out to case management on Saturday 08/18 with a determination if they can accept him. They do have an open bed so if they are able to accept, he can likely be discharged early next week. Admission and Anticipated Discharge Date Admission Date: June 18, 2025 Subjective actually had a very good night last night. Minimal agitation. Slept pretty well. Ate and had a very good breakfast. No new complaints per his sitter, patient interactive but minimally verbal. No other acute events or changes per nursing staff Physical Exam Physical Exam: General: No acute distress, nondiaphoretic. Frail elderly man. HEENT: superficial abrasion on the right anterior forehead with slight skin scabbing. No contusion, secondary abrasion on the right anterior chin. Normal occlusion of the jaw. No pain with mastication. No malalignment. No involvement of the deep tissues of the skin for either abrasion Cardiac: Well-perfused. Regular rate and rhythm no murmurs rubs or gallop Pulm: Normal respiratory effort. on room air. Neuro: A&O x1 (self - baseline). No focal neurological deficits. Psychiatric: generally impaired cognition, normal speech, no dysmetria or dysarthria. Poor eye contact. Very limited response to questioning Results & Data Results & Data Vital Signs (Past 12 Hours) Vital Signs Temp Pulse Resp BP Pulse Ox O2 Del Method 08/23/25 08:00 36.4 C L 63 16 129/68 94 Room Air PG Care Time/CCT Total # of Minutes Spent Total Time Spent with Patient: Total time spent is greater than 50% in coordination of care (as documented) at patient's floor/unit and/or counseling patient: Coding Level of Care Code 62646 SUB INP/OBS CARE 11/30MIN Diagnoses Dementia with agitation F03.911 HTN (hypertension) I10 Obstructive sleep apnea of adult G47.33
[2025-08-23] MEDS: ONDANSETRON 4 MG OD TAB PO STA (20:39)
[2025-08-24 07:28] VITALS: TEMP 97.7
--- NOTE | 2025-08-24 11:23 | Hospitalist Progress Note ---
Date of Service August 24, 2025 Assessment & Plan (1) Dementia with agitation: (2) HTN (hypertension): (3) Obstructive sleep apnea of adult: Plan Nixon is an 80yo male with progressing dementia with agitation, AUDI with hypokalemia, and HTN, requires continued admission for stabilization and optimization on medication regimen while pending placement. Still requiring 1:1 sitter for elopement risk. Ongoing issues of placement due to 1:1. #Severe Dementia with Aggression/Agitation - behaviors much improved/stable now. Remains on 1:1 for elopement risk, not because of behaviors. - Stable labs including B1, B12, TSH - Head CT negative for acute pathology - Psychiatry consulted, appreciate recs: WICHO Zyprexa 5 mg QAM, 2.5 mg @1200, 10mg HS PRN Zyprexa 2.5mg IM BID for aggression (Last IM dose 08/09) Continue clonidine patch 0.2mg/ 24 hour release Q weekly Continue reorientation, activity involvement - Sertraline increased to 75 mg daily - continue - Remeron reduced to 7.5 mg HS - continue - Promote safe environment, minimal interventions or disruptions overnight - 8 days with no unexpected episodes of agitation or abortive medications required, additional medications or PRNs. - no outbursts or violence. for at least 8 days See fall below from yesterday # nausea and vomiting - self-limited, good appetite and oral intake since then. Responded well to Zofran. Uncertain etiology. theoretically this could be related to his head injury but he is showing no other signs or sequela of postconcussion or concussion syndrome. Continue Zofran as needed #Fall from standing - 96 hours post fall, chin abrasion and forehead abrasion are healing well. He is back to his baseline no further evaluation or testing required #HTN - overall has been more stable. Continue Amlodipine 5 mg QAM, Clonidine patch Q7D #Weight loss - Significant wt loss since admission --> Deconditioning vs Poor intake - Nutrition on board; Appreciate mgmt. - No swallowing issue per RN on bedside, no choking but aversion to food - Continue Remeron #Fall - occurred on 08/06 - CT head and neck were negative - Fall precautions VTE ppx: Lovenox - fell off medication list after 1 month, resumed on 08/13 Dispo: awaiting placement, CM following. [place] [facility] evaluate Nixon on 08/15 and this visit went well. They will be reaching out to case management on Saturday 08/18 with a determination if they can accept him. They do have an open bed so if they are able to accept, he can likely be discharged early next week. Admission and Anticipated Discharge Date Admission Date: June 18, 2025 Subjective doing fairly well overall. Isolated and self-limited episode of nausea and vomiting last night. Was given Zofran with no recurrence of symptoms. Had a good breakfast this morning with no difficulty. Is taking a rest now per his sitter. Otherwise no aggression towards staff. Remains redirectable. No new events or concerns otherwise Physical Exam Physical Exam: General: No acute distress, nondiaphoretic. Frail elderly man. HEENT: superficial abrasion on the right anterior forehead with slight skin scabbing. No contusion, secondary abrasion on the right anterior chin. Normal occlusion of the jaw. No pain with mastication. No malalignment. No involvement of the deep tissues of the skin for either abrasion Cardiac: Well-perfused. Regular rate and rhythm no murmurs rubs or gallop Pulm: Normal respiratory effort. on room air. Neuro: A&O x1 (self - baseline). No focal neurological deficits. Psychiatric: generally impaired cognition, normal speech, no dysmetria or dysarthria. Poor eye contact. Very limited response to questioning Results & Data Results & Data Vital Signs (Past 12 Hours) Vital Signs Temp Pulse Resp BP Pulse Ox O2 Del Method 08/24/25 07:30 Room Air 08/24/25 07:27 36.5 C 62 16 123/71 95 Room Air PG Care Time/CCT Total # of Minutes Spent Total Time Spent with Patient: Total time spent is greater than 50% in coordination of care (as documented) at patient's floor/unit and/or counseling patient: Coding Level of Care Code 35911 SUB INP/OBS CARE 2/35MIN Diagnoses Dementia with agitation F03.911 HTN (hypertension) I10 Obstructive sleep apnea of adult G47.33
[2025-08-25 11:43] LABS: Creatinine Clr Calc Pharmacy 55.8 ml/min
--- NOTE | 2025-08-25 13:18 | Hospitalist Progress Note ---
Date of Service August 25, 2025 Assessment & Plan (1) Dementia with agitation: (2) HTN (hypertension): (3) Obstructive sleep apnea of adult: Plan Nixon is an 80yo male with progressing dementia with agitation, AUDI with hypokalemia, and HTN, requires continued admission for stabilization and optimization on medication regimen while pending placement. Still requiring 1:1 sitter for elopement risk. Ongoing issues of placement due to 1:1. #Severe Dementia with Aggression/Agitation - behaviors much improved/stable now. Remains on 1:1 for elopement risk, not because of behaviors. - Stable labs including B1, B12, TSH - Head CT negative for acute pathology - Psychiatry consulted, appreciate recs: WICHO Zyprexa 5 mg QAM, 2.5 mg @1200, 10mg HS PRN Zyprexa 2.5mg IM BID for aggression (Last IM dose 08/09) Continue clonidine patch 0.2mg/ 24 hour release Q weekly Continue reorientation, activity involvement - Sertraline increased to 75 mg daily - continue - Remeron reduced to 7.5 mg HS - continue - Promote safe environment, minimal interventions or disruptions overnight - 9 days with no unexpected episodes of agitation or abortive medications required, additional medications or PRNs. - no outbursts or violence. # nausea and vomiting - self-limited, good appetite and oral intake since then. Responded well to Zofran. Uncertain etiology. theoretically this could be related to his head injury but he is showing no other signs or sequela of postconcussion or concussion syndrome. Continue Zofran as needed #Fall from standing - chin abrasion and forehead abrasion are healing well. He is back to his baseline no further evaluation or testing required #HTN - overall has been more stable. Continue Amlodipine 5 mg QAM, Clonidine patch Q7D #Weight loss - Significant wt loss since admission --> Deconditioning vs Poor intake - Nutrition on board; Appreciate mgmt. - No swallowing issue per RN on bedside, no choking but aversion to food - Continue Remeron #Fall - occurred on 08/06 - CT head and neck were negative - Fall precautions VTE ppx: Lovenox - fell off medication list after 1 month, resumed on 08/13 Dispo: awaiting placement, CM following. [place] [facility] evaluate Nixon on 08/15 and this visit went well. They will be reaching out to case management on Admission and Anticipated Discharge Date Admission Date: June 18, 2025 Subjective Pt is pleasantly confused, 1:1 sitter is present, pt offers no complaints does have garbled speech, offers no complaints of distress Physical Exam Physical Exam: pleasant, no apparent distress, cardiac is rate controlled no murmurs Results & Data Results & Data Vital Signs (Past 12 Hours) Vital Signs Pulse Resp BP Pulse Ox O2 Del Method 08/25/25 07:57 50 L 16 115/79 95 Room Air 08/25/25 07:45 Room Air PG Care Time/CCT Total # of Minutes Spent Total Time Spent with Patient: Total time spent is greater than 50% in coordination of care (as documented) at patient's floor/unit and/or counseling patient: Coding Level of Care Code 29681 SUB INP/OBS CARE 2/35MIN Diagnoses Dementia with agitation F03.911 HTN (hypertension) I10 Obstructive sleep apnea of adult G47.33
--- NOTE | 2025-08-26 16:50 | Hospitalist Progress Note ---
Date of Service August 26, 2025 Assessment & Plan (1) Dementia with agitation: (2) HTN (hypertension): (3) Obstructive sleep apnea of adult: Plan iNxon is an 80yo male with progressing dementia with agitation, AUDI with hypokalemia, and HTN, requires continued admission for stabilization and optimization on medication regimen while pending placement. Still requiring 1:1 sitter for elopement risk. Ongoing issues of placement due to 1:1. #Severe Dementia with Aggression/Agitation - behaviors much improved/stable now. Remains on 1:1 for elopement risk, not because of behaviors. - Stable labs including B1, B12, TSH - Head CT negative for acute pathology - Psychiatry consulted, appreciate recs: WICHO Zyprexa 5 mg QAM, 2.5 mg @1200, 10mg HS PRN Zyprexa 2.5mg IM BID for aggression (Last IM dose 08/09) Continue clonidine patch 0.2mg/ 24 hour release Q weekly Continue reorientation, activity involvement - Sertraline increased to 75 mg daily - continue - Remeron reduced to 7.5 mg HS - continue - Promote safe environment, minimal interventions or disruptions overnight - 9 days with no unexpected episodes of agitation or abortive medications required, additional medications or PRNs. - no outbursts or violence. # nausea and vomiting - self-limited, good appetite and oral intake since then. Responded well to Zofran. Uncertain etiology. theoretically this could be related to his head injury but he is showing no other signs or sequela of postconcussion or concussion syndrome. Continue Zofran as needed #Fall from standing - chin abrasion and forehead abrasion are healing well. He is back to his baseline no further evaluation or testing required #HTN - overall has been more stable. Continue Amlodipine 5 mg QAM, Clonidine patch Q7D #Weight loss - Significant wt loss since admission --> Deconditioning vs Poor intake - Nutrition on board; Appreciate mgmt. - No swallowing issue per RN on bedside, no choking but aversion to food - Continue Remeron #Fall - occurred on 08/06 - CT head and neck were negative - Fall precautions VTE ppx: Lovenox - fell off medication list after 1 month, resumed on 08/13 Dispo: awaiting placement, CM following. [place] [facility] evaluate Nixon on 08/15 and this visit went well. They will be reaching out to case management on Admission and Anticipated Discharge Date Admission Date: June 18, 2025 Subjective Pt is pleasantly confused, 1:1 sitter is present, pt offers no complaints does have garbled speech, offers no complaints of distress Physical Exam Physical Exam: pleasant, no apparent distress, cardiac is rate controlled no murmurs Results & Data Results & Data Vital Signs (Past 12 Hours) Vital Signs Pulse Resp BP Pulse Ox O2 Del Method 08/26/25 08:00 Room Air 08/26/25 07:49 70 18 123/84 96 Room Air PG Care Time/CCT Total # of Minutes Spent Total Time Spent with Patient: Total time spent is greater than 50% in coordination of care (as documented) at patient's floor/unit and/or counseling patient: Coding Level of Care Code 60485 SUB INP/OBS CARE 11/30MIN Diagnoses Dementia with agitation F03.911 HTN (hypertension) I10 Obstructive sleep apnea of adult G47.33
[2025-08-27] MEDS ORDERED: REMOVE CLONIDINE PATCH SCH (08:59)
[2025-08-27 09:20] VITALS: RESP 16
--- NOTE | 2025-08-27 12:54 | Hospitalist Progress Note ---
Date of Service August 27, 2025 Assessment & Plan (1) Dementia with agitation: (2) HTN (hypertension): (3) Obstructive sleep apnea of adult: Plan Nixon is an 80yo male with progressing dementia with agitation, AUDI with hypokalemia, and HTN, requires continued admission for stabilization and optimization on medication regimen while pending placement. Still requiring 1:1 sitter for elopement risk. Ongoing issues of placement due to 1:1. #Severe Dementia with Aggression/Agitation - behaviors much improved/stable now. Remains on 1:1 for elopement risk, not because of behaviors. - Stable labs including B1, B12, TSH - Head CT negative for acute pathology - Psychiatry consulted, appreciate recs: WICHO Zyprexa 5 mg QAM, 2.5 mg @1200, 10mg HS PRN Zyprexa 2.5mg IM BID for aggression (Last IM dose 08/09) Continue clonidine patch 0.2mg/ 24 hour release Q weekly Continue reorientation, activity involvement - Sertraline increased to 75 mg daily - continue - Remeron reduced to 7.5 mg HS - continue - Promote safe environment, minimal interventions or disruptions overnight - 10 days now with no unexpected episodes of agitation or abortive medications required, additional medications or PRNs. - no outbursts or violence. # nausea and vomiting - self-limited, good appetite and oral intake since then. Responded well to Zofran. Uncertain etiology. theoretically this could be related to his head injury but he is showing no other signs or sequela of postconcussion or concussion syndrome. Continue Zofran as needed #Fall from standing - chin abrasion and forehead abrasion are healing well. He is back to his baseline no further evaluation or testing required #HTN - overall has been more stable. Continue Amlodipine 5 mg QAM, Clonidine patch Q7D #Weight loss - Significant wt loss since admission --> Deconditioning vs Poor intake - Nutrition on board; Appreciate mgmt. - No swallowing issue per RN on bedside, no choking but aversion to food - Continue Remeron #Fall - occurred on 08/06 - CT head and neck were negative - Fall precautions VTE ppx: Lovenox - fell off medication list after 1 month, resumed on 08/13 Dispo: Anticipated discharge to [facility] tomorrow morning, August 28 Admission and Anticipated Discharge Date Admission Date: June 18, 2025 Subjective Awake and alert. Case management states he will be discharged to [facility] in [facility] early tomorrow morning, August 28. Review of Systems 2 Review of Systems: The patient will not answer any questions regarding review of systems at this time Physical Exam 2 Physical Exam: General-awake but disoriented with dementia. No fever HEENT-head atraumatic and normocephalic, pupils equal and reactive to light, extraocular muscles intact Neck-no lymphadenopathy or thyromegaly, trachea midline Chest-clear to auscultation. No rales, wheezing or rhonchi Cardiac-regular rate and rhythm, normal S1 and S2 Abdomen-normal bowel sounds, no hepatosplenomegaly Extremities-no cyanosis, clubbing, or edema Neuro-cranial nerves II through XII intact, motor and sensory function within normal limits, strength symmetrical, no focal deficits Psych-cannot assess Results & Data Results & Data Vital Signs (Past 12 Hours) Vital Signs Pulse Resp BP Pulse Ox O2 Del Method 08/27/25 08:30 Room Air 08/27/25 07:50 57 L 16 137/76 96 Room Air Laboratory Results 07/26/25 07:02 08/25/25 10:37 PG Care Time/CCT Total # of Minutes Spent Total Time Spent with Patient: Total time spent is greater than 50% in coordination of care (as documented) at patient's floor/unit and/or counseling patient: Coding Level of Care Code 95770 SUB INP/OBS CARE 2/35MIN Diagnoses Dementia with agitation F03.911 HTN (hypertension) I10 Obstructive sleep apnea of adult G47.33
[2025-08-28 07:06] VITALS: BP 136/79; PULSE 54; O2SAT 95
[2025-08-28 07:29] LABS: Creatinine Clr Calc Pharmacy 68.6 ml/min
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
== END 2025-08-28 10:00 | disposition home or self-care (01) | DRG 57 ==
LOC: ED 16:53 → EDINP 19:41 → SUATTDRO 19:41 → 3W 21:33